=== PATIENT | male | born 1950 | race Caucasian/White ===

== ENCOUNTER 2017-08-27 08:38 | Emergency (ER) | payer MEDICARE ==
[2017-08-27 08:45] VITALS: RESP 18
--- NOTE | 2017-08-27 09:21 | ED ---
Eye Problem HPI - General Chief complaint: Eye Problems Stated complaint: VISUAL DISTURBANCE LEFT EYE Time Seen by Provider: 08/27/17 08:50 Source: patient Mode of arrival: ambulatory Limitations: no limitations - History of Present Illness Initial comments: This is a 66-year-old male who states he had the onset 3 days ago of loss of vision to his left eye. He states that he got out into the bright sunlight had some zigzag he flashes in his left eye and later he noted he had no vision BLACK. SINCE THEN HE HAS HAD SOME RETURN OF HIS VISION HIS LEFT PERIPHERAL AND A COUPLE SPOTTY AREAS. NO HEADACHE NO TRAUMA FEVERS CHILLS NAUSEA VOMITING SWEATS OR OTHER SYMPTOMS. HE STATES HE ABOUT 10 YEARS AGO DID HAVE A PIECE OF METAL THAT WAS REMOVED FROM INSIDE HE IS ALSO TOLD HE MAY HAVE SOME CATARACTS. NO HISTORY OF STROKES PATIENT DOES WEAR GLASSES NO OTHER MODIFYING FACTORS AT THIS TIME MD chief complaint: vision change - Related Data Home Medications Medication Instructions Recorded Confirmed Ibuprofen [Motrin Ib] 400 mg PO Q6H PRN 08/27/17 08/27/17 Previous Rx's Medication Instructions Recorded Lisinopril [Zestril] 10 mg PO DAILY #15 tab 08/27/17 Allergies Allergy/AdvReac Type Severity Reaction Status Date / Time No Known Allergies Allergy Verified 08/27/17 08:53 Review of Systems ROS Statement: Those systems with pertinent positive or pertinent negative responses have been documented in the HPI. ROS Other: All systems not noted in ROS Statement are negative. Past Medical History Past Medical History: Myocardial Infarction ([place]) History of Any Multi-Drug Resistant Organisms: None Reported Past Surgical History: Back Surgery Past Psychological History: No Psychological Hx Reported Smoking Status: Current every day smoker Past Alcohol Use History: None Reported Past Drug Use History: None Reported General Exam - General Exam Comments Initial Comments: This is a well-developed well-nourished awake alert oriented 3 male Limitations: no limitations General appearance: alert, in no apparent distress Head exam: Present: atraumatic, normocephalic, normal inspection Eye exam: Present: normal appearance, PERRL, EOMI, other (Examination grounds is limited. On confrontation the patient did schedule out on a pad deformity what he saw his left eye he does get some left lateral visual field vision remaining with some residual left upper outer quadrant and left lower medial quadrant vision retained.). Absent: scleral icterus, conjunctival injection, periorbital swelling Pupils: Present: normal accommodation ENT exam: Present: normal exam, mucous membranes moist Neck exam: Present: normal inspection. Absent: tenderness, meningismus, lymphadenopathy Respiratory exam: Present: normal lung sounds bilaterally. Absent: respiratory distress, wheezes, rales, rhonchi, stridor Cardiovascular Exam: Present: regular rate, normal rhythm, normal heart sounds. Absent: systolic murmur, diastolic murmur, rubs, gallop, clicks GI/Abdominal exam: Present: soft, normal bowel sounds. Absent: distended, tenderness, guarding, rebound, rigid Extremities exam: Present: normal inspection, full ROM, normal capillary refill. Absent: tenderness, pedal edema, joint swelling, calf tenderness Back exam: Present: normal inspection Neurological exam: Present: alert, oriented X3, CN II-XII intact Psychiatric exam: Present: normal affect, normal mood Skin exam: Present: warm, dry, intact, normal color. Absent: rash Course Vital Signs 08/27/17 08/27/17 08/27/17 08:41 08:45 09:36 Temperature 98.4 F Pulse Rate 97 Respiratory 18 Rate Blood Pressure 216/135 218/127 186/104 O2 Sat by Pulse 98 Oximetry 08/27/17 08/27/17 10:08 10:48 Temperature Pulse Rate 73 69 Respiratory 18 18 Rate Blood Pressure 173/101 182/98 O2 Sat by Pulse 98 97 Oximetry Medical Decision Making - Medical Decision Making I did reevaluate the patient several occasions he had no changes visual field defect. I did discuss the case with Dr. Gonzalez will be sent to Dr. Gonzalez's office after discharge from the emergency department. The presentation is consistent with a central retinal artery occlusion. - Lab Data Result diagrams: 08/27/17 09:30 08/27/17 09:30 Lab Results 08/27/17 08/27/17 08/27/17 Range/Units 09:30 09:30 09:30 WBC 7.8 (3.8-10.6) k/uL RBC 5.38 (4.30-5.90) m/uL Hgb 16.7 (13.0-17.5) gm/dL Hct 48.5 (39.0-53.0) % MCV 90.1 (80.0-100.0) fL MCH 31.0 (25.0-35.0) pg MCHC 34.5 (31.0-37.0) g/dL RDW 12.8 (11.5-15.5) % Plt Count 273 (150-450) k/uL Neutrophils % 56 % Lymphocytes % 32 % Monocytes % 7 % Eosinophils % 3 % Basophils % 1 % Neutrophils # 4.4 (1.3-7.7) k/uL Lymphocytes # 2.5 (1.0-4.8) k/uL Monocytes # 0.5 (0-1.0) k/uL Eosinophils # 0.2 (0-0.7) k/uL Basophils # 0.1 (0-0.2) k/uL PT 9.9 (9.0-12.0) sec INR 1.0 (<1.2) APTT 22.5 (22.0-30.0) sec Sodium 140 (137-145) mmol/L Potassium 4.5 (3.5-5.1) mmol/L Chloride 107 (98-107) mmol/L Carbon Dioxide 21 L (22-30) mmol/L Anion Gap 12 mmol/L BUN 18 (9-20) mg/dL Creatinine 1.21 (0.66-1.25) mg/dL Est GFR (CKD-EPI)AfAm 72 (>60 ml/min/1.73 sqM) Est GFR (CKD-EPI)NonAf 63 (>60 ml/min/1.73 sqM) Glucose 106 H (74-99) mg/dL Calcium 9.4 (8.4-10.2) mg/dL Magnesium 2.2 (1.6-2.3) mg/dL Total Bilirubin 0.6 (0.2-1.3) mg/dL AST 25 (17-59) U/L ALT 30 (21-72) U/L Alkaline Phosphatase 58 (38-126) U/L Total Creatine Kinase (55-170) U/L CK-MB (CK-2) (0.0-2.4) ng/mL CK-MB (CK-2) Rel Index Troponin I (0.000-0.034) ng/mL C-Reactive Protein (<10.0) mg/L Total Protein 7.3 (6.3-8.2) g/dL Albumin 4.4 (3.5-5.0) g/dL 08/27/17 08/27/17 Range/Units 09:30 09:30 WBC (3.8-10.6) k/uL RBC (4.30-5.90) m/uL Hgb (13.0-17.5) gm/dL Hct (39.0-53.0) % MCV (80.0-100.0) fL MCH (25.0-35.0) pg MCHC (31.0-37.0) g/dL RDW (11.5-15.5) % Plt Count (150-450) k/uL Neutrophils % % Lymphocytes % % Monocytes % % Eosinophils % % Basophils % % Neutrophils # (1.3-7.7) k/uL Lymphocytes # (1.0-4.8) k/uL Monocytes # (0-1.0) k/uL Eosinophils # (0-0.7) k/uL Basophils # (0-0.2) k/uL PT (9.0-12.0) sec INR (<1.2) APTT (22.0-30.0) sec Sodium (137-145) mmol/L Potassium (3.5-5.1) mmol/L Chloride (98-107) mmol/L Carbon Dioxide (22-30) mmol/L Anion Gap mmol/L BUN (9-20) mg/dL Creatinine (0.66-1.25) mg/dL Est GFR (CKD-EPI)AfAm (>60 ml/min/1.73 sqM) Est GFR (CKD-EPI)NonAf (>60 ml/min/1.73 sqM) Glucose (74-99) mg/dL Calcium (8.4-10.2) mg/dL Magnesium (1.6-2.3) mg/dL Total Bilirubin (0.2-1.3) mg/dL AST (17-59) U/L ALT (21-72) U/L Alkaline Phosphatase (38-126) U/L Total Creatine Kinase 128 (55-170) U/L CK-MB (CK-2) 1.3 (0.0-2.4) ng/mL CK-MB (CK-2) Rel Index 1.0 Troponin I 0.017 (0.000-0.034) ng/mL C-Reactive Protein <5.0 (<10.0) mg/L Total Protein (6.3-8.2) g/dL Albumin (3.5-5.0) g/dL - Radiology Data Radiology results: report reviewed (I did review the imaging and report no acute findings. Evidence of old changes), image reviewed Disposition Clinical Impression: Visual loss, Central retinal artery occlusion of left eye, Hypertension Disposition: HOME SELF-CARE Condition: Stable Instructions: Blurred Vision (ED) Additional Instructions: Follow-up with Dr. Gonzalez immediately after discharge from the hospital Prescriptions: Lisinopril [Zestril] 10 mg PO DAILY #15 tab Is patient prescribed a controlled substance at d/c from ED?: No Referrals: None,Stated [Primary Care Provider] - 1-2 days Jaspal Gonzalez MD [STAFF PHYSICIAN] - 1-2 days Rubi Elena MD [STAFF PHYSICIAN] - 1-2 days
[2017-08-27] MEDS ORDERED: ENALAPRILAT 1.25 MG/ML 1 ML VIAL IVP STA (09:25)
[2017-08-27] MEDS ORDERED: SODIUM CHLORIDE 0.9% 500 ML IV STA (09:25)
[2017-08-27 09:41] LABS: Basophils # (A) 0.1 k/uL (0-0.2); Basophils % (A) 1 %; Eosinophils # (A) 0.2 k/uL (0-0.7); Eosinophils % (A) 3 %; HCT 48.5 % (39.0-53.0); HGB 16.7 gm/dL (13.0-17.5); Lymphocytes # (A) 2.5 k/uL (1.0-4.8); Lymphocytes % (A) 32 %; MCHC 34.5 g/dL (31.0-37.0); MCV 90.1 fL (80.0-100.0); Mean Platelet Volume 6.6; Monocytes # (A) 0.5 k/uL (0-1.0); Monocytes % (A) 7 %; Neutrophils # (A) 4.4 k/uL (1.3-7.7); Neutrophils % (A) 56 %; Platelet Count 273 k/uL (150-450); RBC 5.38 m/uL (4.30-5.90); RDW 12.8 % (11.5-15.5); WBC 7.8 k/uL (3.8-10.6)
[2017-08-27 09:48] LABS: Albumin 4.4 g/dL (3.5-5.0); Calcium 9.4 mg/dL (8.4-10.2); Magnesium 2.2 mg/dL (1.6-2.3); Potassium 4.5 mmol/L (3.5-5.1); Total Bilirubin 0.6 mg/dL (0.2-1.3); Total Protein 7.3 g/dL (6.3-8.2)
[2017-08-27 09:55] LABS: Partial Thromboplastin Time 22.5 sec (22.0-30.0); Prothrombin Time 9.9 sec (9.0-12.0)
--- NOTE | 2017-08-27 10:07 | CT ---
EXAMINATION TYPE: CT brain wo con DATE OF EXAM: 08/27/2017 COMPARISON: NONE HISTORY: visual disturbance Lt eye CT DLP: 1210 mGycm Automated exposure control for dose reduction was used. Helical acquisition obtained through the [employer]. FINDINGS: Cerebral vascular calcifications are present. There is no hemorrhage or hydrocephalus. Periventricula r white matter shows patchy low attenuation, probable prior infarct present within the basal ganglia, internal capsule on the left and possibly basal ganglia on the right. Calvarium is intact. Paranasal sinuses and mastoid air cells as visualized are normal. Orbits show symmetric appearance. Left parie radhika lobe shows some focal volume loss, encephalomalacia. IMPRESSION: SUSPECT CHRONIC ISCHEMIC CHANGES, MRI MAY BE OF BENEFIT
[2017-08-27 10:29] LABS: Creatine Kinase MB 1.3 ng/mL (0.0-2.4); Troponin I 0.017 ng/mL (0.000-0.034)
[2017-08-27 12:11] VITALS: BP 172/94; PULSE 79; TEMP 98.6
== END 2017-08-27 12:10 | disposition home or self-care (01) ==
LOC: EC 08:38
DX: H34.12 Central retinal artery occlusion, left eye (principal); I10 Essential (primary) hypertension; F17.200 Nicotine dependence, unspecified, uncomplicated; Z98.890 Other specified postprocedural states
CPT/HCPCS: 36415; 70450; 80053; 82550; 82553; 83735; 84484; 85025; 85610; 85652; 85730; 86140; 96374; 99284

== ENCOUNTER → 2017-09-10 | Outpatient (CLI) | payer MEDICARE ==
[2017-09-10 10:11] LABS: ALT 32 U/L (21-72); AST 24 U/L (17-59); Cholesterol 226 mg/dL (<200); HDL Cholesterol 34 mg/dL (40-60); LDL Cholesterol,Calculated 160 mg/dL (0-99); Triglycerides 160 mg/dL (<150)
== END | disposition home or self-care (01) ==
LOC: LABWHC1 09:12
PROVIDERS: ATTEND Internal Medicine Cardiovascular Disease
DX: E78.2 Mixed hyperlipidemia (principal)
CPT/HCPCS: 36415; 80061; 84450; 84460

== ENCOUNTER 2017-09-14 06:32 | Day surgery (SDC) | payer MEDICARE ==
[2017-09-10 15:25] VITALS: BMI 26.2
[2017-09-14 07:00] VITALS: RESP 16; TEMP 98.1
[2017-09-14] MEDS ORDERED: SODIUM CHLORIDE 0.9% 500 ML IV ONE (07:05)
[2017-09-14] MEDS ORDERED: MIDAZOLAM 2 MG/2 ML VIAL ONE (07:17)
[2017-09-14] MEDS ORDERED: fentaNYL (PF) 50 MCG/ML 2 ML AMP ONE (07:17)
[2017-09-14] MEDS: BENZOCAINE SPRAY 1 CAN MUCOUS MEM ONE ×2 (07:27→07:29)
[2017-09-14] MEDS ORDERED: fentaNYL (PF) 50 MCG/ML 2 ML AMP IVP ONE (07:29)
[2017-09-14] MEDS ORDERED: MIDAZOLAM 2 MG/2 ML VIAL IVP ONE (07:29)
[2017-09-14] MEDS ORDERED: SODIUM CHLORIDE 0.9% 1,000 ML IV SCH (08:00)
--- NOTE | 2017-09-14 08:02 | ECHOT ---
TRANSESOPHAGEAL ECHOCARDIOGRAM INDICATION: TIA. PROCEDURE NOTE: After obtaining informed consent, transesophageal echocardiogram was performed in left lateral position using an Omni plane probe. Local and IV sedation were obtained by Xylocaine spray, 2 mg of Versed and 25 mcg of fentanyl. The patient tolerated the procedure well without any obvious immediate complications. FINDINGS: 1. There is no intracardiac thrombus within the left atrial appendage, left atrium, right atrium, right ventricular or left ventricle. 2. Left ventricle appears mildly enlarged shows hypokinesis involving inferior wall with moderate LV dysfunction with an ejection fraction of 40% to 45%. 3. Mild to moderate central mitral regurgitation noted. 4. Left atrium appears enlarged. 5. Right atrium and right ventricle are within normal limits. 6. Aorta shows mild to moderate atherosclerotic changes. 7. Aortic valve is a 3-leaflet valve. There is no evidence of aortic stenosis or regurgitation. 8. Interatrial septum: There is no evidence of [id number] shunt by color-flow Doppler or [id number] shunt by agitated saline contrast study. CONCLUSIONS: This transesophageal echo does not reveal intracardiac thrombus and no evidence of shunting across the interatrial septum. The patient has evidence of prior inferior wall myocardial infarction with left ventricular dysfunction. MMODL / IJN: [id number] /
[2017-09-14 09:31] VITALS: BP 150/89; PULSE 71
== END 2017-09-14 09:28 | disposition home or self-care (01) ==
LOC: CATHCVL 06:32
PROVIDERS: ATTEND Internal Medicine Cardiovascular Disease
DX: I74.9 Embolism and thrombosis of unspecified artery (principal); I69.398 Other sequelae of cerebral infarction; H54.62 Unqualified visual loss, left eye, normal vision right eye; I10 Essential (primary) hypertension; R94.31 Abnormal electrocardiogram [ECG] [EKG]; F17.210 Nicotine dependence, cigarettes, uncomplicated; Z79.82 Long term (current) use of aspirin; Z79.899 Other long term (current) drug therapy
CPT/HCPCS: 93312; 93320; 93325; J2250; J3010

== ENCOUNTER 2017-09-20 17:12 | Inpatient (IN) | payer MEDICARE ==
[2017-09-20] MEDS ORDERED: SODIUM CHLORIDE 0.9% 1,000 ML IV STA (17:19)
--- NOTE | 2017-09-20 17:23 | ED ---
Recheck HPI - General Chief Complaint: Recheck/Abnormal Lab/Rx Stated Complaint: HTN Time Seen by Provider: 09/20/17 17:19 Source: patient, EMS, RN notes reviewed Mode of arrival: EMS Limitations: no limitations - History of Present Illness Initial Comments: This is a 67-year-old male was brought in by EMS for sudden onset of left leg weakness. He states it happened about 45 minutes prior to arrival he had sudden onset of numbness to his left leg he could not move wood. He states he has again a little bit of movement but not much. He's had no headache fevers chills nausea vomiting sweats no blurry vision no other symptoms. No prior history of stroke. No palpitations no chest pain reported at this time. He was noted have an elevated blood pressure. He states that he was told he should be a medication but could not afford them. - Related Data Home Medications Medication Instructions Recorded Confirmed Ibuprofen [Motrin Ib] 400 mg PO Q6H PRN 08/27/17 09/20/17 Previous Rx's Medication Instructions Recorded Lisinopril [Zestril] 10 mg PO DAILY #15 tab 08/27/17 Allergies Allergy/AdvReac Type Severity Reaction Status Date / Time No Known Allergies Allergy Verified 09/20/17 17:16 Review of Systems ROS Statement: Those systems with pertinent positive or pertinent negative responses have been documented in the HPI. ROS Other: All systems not noted in ROS Statement are negative. Past Medical History Past Medical History: Hypertension, Myocardial Infarction ([place]) History of Any Multi-Drug Resistant Organisms: None Reported Past Surgical History: Back Surgery Past Psychological History: No Psychological Hx Reported Smoking Status: Current every day smoker Past Alcohol Use History: None Reported Past Drug Use History: None Reported General Exam - General Exam Comments Initial Comments: This is a well-developed well-nourished awake alert oriented times 3 male Limitations: no limitations General appearance: alert, in no apparent distress Head exam: Present: atraumatic, normocephalic, normal inspection Eye exam: Present: normal appearance, PERRL, EOMI. Absent: scleral icterus, conjunctival injection, periorbital swelling ENT exam: Present: normal exam, mucous membranes moist Neck exam: Present: normal inspection. Absent: tenderness, meningismus, lymphadenopathy Respiratory exam: Present: normal lung sounds bilaterally. Absent: respiratory distress, wheezes, rales, rhonchi, stridor Cardiovascular Exam: Present: regular rate, normal rhythm, normal heart sounds. Absent: systolic murmur, diastolic murmur, rubs, gallop, clicks GI/Abdominal exam: Present: soft, normal bowel sounds. Absent: distended, tenderness, guarding, rebound, rigid Extremities exam: Present: normal inspection, normal capillary refill. Absent: full ROM (Limited movements of left lower extremity to gravity to push pull), tenderness, pedal edema, joint swelling, calf tenderness Back exam: Present: normal inspection Neurological exam: Present: alert, oriented X3, CN II-XII intact, motor sensory deficit Psychiatric exam: Present: normal affect, normal mood Skin exam: Present: warm, dry, intact, normal color. Absent: rash Course Vital Signs 09/20/17 09/20/17 09/20/17 17:17 17:30 17:45 Temperature 99.1 F Pulse Rate 87 90 86 Respiratory 18 18 20 Rate Blood Pressure 190/107 180/91 171/99 O2 Sat by Pulse 97 98 99 Oximetry 09/20/17 09/20/17 09/20/17 18:00 18:15 19:38 Temperature Pulse Rate 82 80 77 Respiratory 18 20 18 Rate Blood Pressure 162/95 168/91 179/101 O2 Sat by Pulse 99 98 96 Oximetry - Reevaluation(s) Reevaluation #1: 09/20/17 21:35 Reevaluation patient he did have resolution of his left leg hemiplegia. Reevaluation #2: 09/20/17 21:36 EKG reading shows a normal sinus rhythm of 87 TN interval 166 QRS 106 daily since QTC 372/447 old inferior changes nonspecific anterolateral changes. Medical Decision Making - Medical Decision Making Reevaluation patient reveals resolution of his symptoms he is asymptomatic at this time patient was noted have elevated blood pressure. He will be started on medication in the emergency department I did discuss the case with the city call physician patient be admitted with neurology consultation. Of note a code stroke was called on this patient and the neuro interventional S did evaluate the patient. His NIH stroke scale was 0 at the time of admission. His initial stroke scale was 1. - Lab Data Result diagrams: 09/20/17 17:20 09/20/17 17:20 Lab Results 09/20/17 09/20/17 09/20/17 Range/Units 17:20 17:20 17:20 WBC 9.2 (3.8-10.6) k/uL RBC 5.25 (4.30-5.90) m/uL Hgb 16.1 (13.0-17.5) gm/dL Hct 46.9 (39.0-53.0) % MCV 89.3 (80.0-100.0) fL MCH 30.6 (25.0-35.0) pg MCHC 34.3 (31.0-37.0) g/dL RDW 12.2 (11.5-15.5) % Plt Count 287 (150-450) k/uL Neutrophils % 57 % Lymphocytes % 34 % Monocytes % 4 % Eosinophils % 3 % Basophils % 1 % Neutrophils # 5.2 (1.3-7.7) k/uL Lymphocytes # 3.1 (1.0-4.8) k/uL Monocytes # 0.4 (0-1.0) k/uL Eosinophils # 0.3 (0-0.7) k/uL Basophils # 0.1 (0-0.2) k/uL PT (9.0-12.0) sec INR (<1.2) APTT (22.0-30.0) sec Sodium 138 (137-145) mmol/L Potassium 4.5 (3.5-5.1) mmol/L Chloride 109 H (98-107) mmol/L Carbon Dioxide 20 L (22-30) mmol/L Anion Gap 9 mmol/L BUN 20 (9-20) mg/dL Creatinine 1.20 (0.66-1.25) mg/dL Est GFR (CKD-EPI)AfAm 73 (>60 ml/min/1.73 sqM) Est GFR (CKD-EPI)NonAf 63 (>60 ml/min/1.73 sqM) Glucose 166 H (74-99) mg/dL POC Glucose (mg/dL) (75-99) mg/dL POC Glu Personal Computer Specialist ID Calcium 9.1 (8.4-10.2) mg/dL Magnesium 2.1 (1.6-2.3) mg/dL Total Bilirubin 0.4 (0.2-1.3) mg/dL AST 26 (17-59) U/L ALT 27 (21-72) U/L Alkaline Phosphatase 68 (38-126) U/L Total Creatine Kinase (55-170) U/L CK-MB (CK-2) (0.0-2.4) ng/mL CK-MB (CK-2) Rel Index Troponin I (0.000-0.034) ng/mL Total Protein 7.2 (6.3-8.2) g/dL Albumin 4.3 (3.5-5.0) g/dL 09/20/17 09/20/17 09/20/17 Range/Units 17:20 17:20 17:22 WBC (3.8-10.6) k/uL RBC (4.30-5.90) m/uL Hgb (13.0-17.5) gm/dL Hct (39.0-53.0) % MCV (80.0-100.0) fL MCH (25.0-35.0) pg MCHC (31.0-37.0) g/dL RDW (11.5-15.5) % Plt Count (150-450) k/uL Neutrophils % % Lymphocytes % % Monocytes % % Eosinophils % % Basophils % % Neutrophils # (1.3-7.7) k/uL Lymphocytes # (1.0-4.8) k/uL Monocytes # (0-1.0) k/uL Eosinophils # (0-0.7) k/uL Basophils # (0-0.2) k/uL PT 10.0 (9.0-12.0) sec INR 1.0 (<1.2) APTT 23.2 (22.0-30.0) sec Sodium (137-145) mmol/L Potassium (3.5-5.1) mmol/L Chloride (98-107) mmol/L Carbon Dioxide (22-30) mmol/L Anion Gap mmol/L BUN (9-20) mg/dL Creatinine (0.66-1.25) mg/dL Est GFR (CKD-EPI)AfAm (>60 ml/min/1.73 sqM) Est GFR (CKD-EPI)NonAf (>60 ml/min/1.73 sqM) Glucose (74-99) mg/dL POC Glucose (mg/dL) 173 H (75-99) mg/dL POC Glu Personal Computer Specialist ID Car [employer]oney Calcium (8.4-10.2) mg/dL Magnesium (1.6-2.3) mg/dL Total Bilirubin (0.2-1.3) mg/dL AST (17-59) U/L ALT (21-72) U/L Alkaline Phosphatase (38-126) U/L Total Creatine Kinase 168 (55-170) U/L CK-MB (CK-2) 1.9 (0.0-2.4) ng/mL CK-MB (CK-2) Rel Index 1.1 Troponin I 0.018 (0.000-0.034) ng/mL Total Protein (6.3-8.2) g/dL Albumin (3.5-5.0) g/dL - EKG Data -: EKG Interpreted by Me (EKG shows normal sinus rhythm of 87 ) - Radiology Data Radiology results: report reviewed (I did review the imaging and report computed tomography scan shows no acute findings. He does have evidence of a left lung mass on x-ray.), image reviewed Critical Care Time Critical Care Time: Yes Critical Care Time: 37 minutes of critical care time which includes monitoring initially EMS run and discussed with paramedics history physical labs x-rays. Multiple reevaluation the patient. Discussion with the beta physician admission orders and documentation the above. This also did include discussion with the radiologist. Disposition Clinical Impression: TIA (transient ischemic attack), Lung mass Disposition: ADMITTED IP TO THIS [facility] Condition: Stable Referrals: None,Stated [Primary Care Provider] - 1-2 days
[2017-09-20 17:25] LABS: Glucose,Whole Blood 173 mg/dL (75-99)
[2017-09-20 17:37] LABS: Basophils # (A) 0.1 k/uL (0-0.2); Basophils % (A) 1 %; Eosinophils # (A) 0.3 k/uL (0-0.7); Eosinophils % (A) 3 %; HCT 46.9 % (39.0-53.0); HGB 16.1 gm/dL (13.0-17.5); Lymphocytes # (A) 3.1 k/uL (1.0-4.8); Lymphocytes % (A) 34 %; MCH 30.6 pg (25.0-35.0); MCHC 34.3 g/dL (31.0-37.0); MCV 89.3 fL (80.0-100.0); Mean Platelet Volume 6.3; Monocytes # (A) 0.4 k/uL (0-1.0); Monocytes % (A) 4 %; Neutrophils # (A) 5.2 k/uL (1.3-7.7); Neutrophils % (A) 57 %; Platelet Count 287 k/uL (150-450); RBC 5.25 m/uL (4.30-5.90); RDW 12.2 % (11.5-15.5); WBC 9.2 k/uL (3.8-10.6)
[2017-09-20 17:45] LABS: Albumin 4.3 g/dL (3.5-5.0); Calcium 9.1 mg/dL (8.4-10.2); Potassium 4.5 mmol/L (3.5-5.1); Total Bilirubin 0.4 mg/dL (0.2-1.3); Total Protein 7.2 g/dL (6.3-8.2)
[2017-09-20] MEDS ORDERED: ASPIRIN 325 MG TAB PO STA (17:47)
[2017-09-20] MEDS ORDERED: ATORVASTATIN 80 MG TAB PO STA (17:48)
--- NOTE | 2017-09-20 17:48 | CT ---
EXAMINATION: CT brain wo con for TPA DATE AND TIME: 09/20/2017 5:37 PM ORDERING PROVIDER: Kashif Oliveira MD CLINICAL INDICATION: Neuro Deficits hypertension and left lower leg weakness. TECHNIQUE: Standard departmental protocol. COMPARISON: 08/27/2017 DESCRIPTION: The calvarium is intact. There is no intracranial hemorrhage. There is no mass or mass e ffect. There is no definite new attenuation defect. Remainder of the intra-axial and extra-axial comp artment examination is unremarkable. The paranasal sinuses, middle ear cavities, and mastoid sinus ai r cells are clear. The orbits are intact. IMPRESSION: NO ACUTE PROCESS.
[2017-09-20 17:56] LABS: Partial Thromboplastin Time 23.2 sec (22.0-30.0)
[2017-09-20 18:10] LABS: Creatine Kinase MB 1.9 ng/mL (0.0-2.4); Troponin I 0.018 ng/mL (0.000-0.034)
--- NOTE | 2017-09-20 18:34 | CT ---
EXAMINATION TYPE: CT angio head neck with contrast and with 3-D reconstruction renderings. DATE OF EXAM: 09/20/2017 HISTORY: Neurological deficits; hypertension with left lower leg weakness COMPARISON: Same day CT brain without contrast. CT DLP: 357.9 mGycm. Automated Exposure Control for Dose Reduction was Utilized. TECHNIQUE: CTA scan of the neck is performed; patient injected with 35 mL of Isovue 370, axial image s are obtained, coronal and sagittal reformatted images are reviewed. Three-D reconstructed images ar e created on an independent workstation and reviewed. FINDINGS: The bilateral carotid arteries are without hemodynamically significant stenoses throughout their extent from the aortic arch to their terminus. Similarly, the bilateral vertebral arteries are without hemodynamically significant stenoses througho ut their extent from the thoracic inlet to their terminus. No incidental neck soft tissue skeletal findings, and the visualized lung apices are unremarkable. Intracranial arterial anatomy: The anterior circulation and the posterior circulation are patent bila terally. There are no filling defects. No hemodynamically significant stenosis, and no aneurysm. Intracranial venous structures are unremarkable. Intracranial intra-axial and extra-axial compartments are negative for acute findings. IMPRESSION: No significant abnormality is seen.
[2017-09-20 19:40] VITALS: RESP 18
--- NOTE | 2017-09-20 20:17 | XR ---
EXAMINATION: XR chest 2V DATE AND TIME: 09/20/2017 7:27 PM ORDERING PROVIDER: Kashif Oliveira MD CLINICAL INDICATION: altered mental status TECHNIQUE: PA and lateral COMPARISON: None. DESCRIPTION: 2.5 cm spiculated bronchogenic mass is seen within the left upper lobe. No other definite lung findin gs. The pleural spaces are negative. The cardiac silhouette is not enlarged. The mediastinal and pleural silhouettes are unremarkable. The skeletal structures are intact without focal findings. The soft tissues are unremarkable. IMPRESSION: LEFT UPPER LOBE SPICULATED BRONCHOGENIC MASS, HIGHLY SUSPICIOUS FOR BRONCHOGENIC CARCINOMA.
[2017-09-20] MEDS ORDERED: LISINOPRIL 10 MG TAB PO STA (21:29)
--- NOTE | 2017-09-20 21:45 | ED ---
Medical Decision Making - Lab Data Result diagrams: 09/20/17 17:20 09/20/17 17:20 Lab Results 09/20/17 09/20/17 09/20/17 Range/Units 17:20 17:20 17:20 WBC 9.2 (3.8-10.6) k/uL RBC 5.25 (4.30-5.90) m/uL Hgb 16.1 (13.0-17.5) gm/dL Hct 46.9 (39.0-53.0) % MCV 89.3 (80.0-100.0) fL MCH 30.6 (25.0-35.0) pg MCHC 34.3 (31.0-37.0) g/dL RDW 12.2 (11.5-15.5) % Plt Count 287 (150-450) k/uL Neutrophils % 57 % Lymphocytes % 34 % Monocytes % 4 % Eosinophils % 3 % Basophils % 1 % Neutrophils # 5.2 (1.3-7.7) k/uL Lymphocytes # 3.1 (1.0-4.8) k/uL Monocytes # 0.4 (0-1.0) k/uL Eosinophils # 0.3 (0-0.7) k/uL Basophils # 0.1 (0-0.2) k/uL PT (9.0-12.0) sec INR (<1.2) APTT (22.0-30.0) sec Sodium 138 (137-145) mmol/L Potassium 4.5 (3.5-5.1) mmol/L Chloride 109 H (98-107) mmol/L Carbon Dioxide 20 L (22-30) mmol/L Anion Gap 9 mmol/L BUN 20 (9-20) mg/dL Creatinine 1.20 (0.66-1.25) mg/dL Est GFR (CKD-EPI)AfAm 73 (>60 ml/min/1.73 sqM) Est GFR (CKD-EPI)NonAf 63 (>60 ml/min/1.73 sqM) Glucose 166 H (74-99) mg/dL POC Glucose (mg/dL) (75-99) mg/dL POC Glu Agricultural Equipment Salesperson ID Calcium 9.1 (8.4-10.2) mg/dL Magnesium 2.1 (1.6-2.3) mg/dL Total Bilirubin 0.4 (0.2-1.3) mg/dL AST 26 (17-59) U/L ALT 27 (21-72) U/L Alkaline Phosphatase 68 (38-126) U/L Total Creatine Kinase (55-170) U/L CK-MB (CK-2) (0.0-2.4) ng/mL CK-MB (CK-2) Rel Index Troponin I (0.000-0.034) ng/mL Total Protein 7.2 (6.3-8.2) g/dL Albumin 4.3 (3.5-5.0) g/dL 09/20/17 09/20/17 09/20/17 Range/Units 17:20 17:20 17:22 WBC (3.8-10.6) k/uL RBC (4.30-5.90) m/uL Hgb (13.0-17.5) gm/dL Hct (39.0-53.0) % MCV (80.0-100.0) fL MCH (25.0-35.0) pg MCHC (31.0-37.0) g/dL RDW (11.5-15.5) % Plt Count (150-450) k/uL Neutrophils % % Lymphocytes % % Monocytes % % Eosinophils % % Basophils % % Neutrophils # (1.3-7.7) k/uL Lymphocytes # (1.0-4.8) k/uL Monocytes # (0-1.0) k/uL Eosinophils # (0-0.7) k/uL Basophils # (0-0.2) k/uL PT 10.0 (9.0-12.0) sec INR 1.0 (<1.2) APTT 23.2 (22.0-30.0) sec Sodium (137-145) mmol/L Potassium (3.5-5.1) mmol/L Chloride (98-107) mmol/L Carbon Dioxide (22-30) mmol/L Anion Gap mmol/L BUN (9-20) mg/dL Creatinine (0.66-1.25) mg/dL Est GFR (CKD-EPI)AfAm (>60 ml/min/1.73 sqM) Est GFR (CKD-EPI)NonAf (>60 ml/min/1.73 sqM) Glucose (74-99) mg/dL POC Glucose (mg/dL) 173 H (75-99) mg/dL POC Glu Agricultural Equipment Salesperson ID [employer] Calcium (8.4-10.2) mg/dL Magnesium (1.6-2.3) mg/dL Total Bilirubin (0.2-1.3) mg/dL AST (17-59) U/L ALT (21-72) U/L Alkaline Phosphatase (38-126) U/L Total Creatine Kinase 168 (55-170) U/L CK-MB (CK-2) 1.9 (0.0-2.4) ng/mL CK-MB (CK-2) Rel Index 1.1 Troponin I 0.018 (0.000-0.034) ng/mL Total Protein (6.3-8.2) g/dL Albumin (3.5-5.0) g/dL Disposition Clinical Impression: TIA (transient ischemic attack), Lung mass, Hypertension Disposition: ADMITTED IP TO THIS HOSP Condition: Stable Referrals: None,Stated [Primary Care Provider] - 1-2 days
[2017-09-20] MEDS: SODIUM CHLORIDE 0.9% 1,000 ML IV SCH (22:01)
[2017-09-20 22:23] VITALS: BMI 26.2
--- NOTE | 2017-09-21 02:14 | P.HPIM ---
History of Present Illness H&P Date: 09/20/17 Chief Complaint: left leg weakness 67 year old male with past medical history of hypertension and CAD. Patient presented to the hospital due to sudden onset left leg hemiplegia while watching TV. Patient reports that 3 weeks ago he also had an attack where his left eye vision has became blurry. He was evaluated as an outpatient by ophthalmology who suggested that this could be due to stroke however patient did not follow-up with medical doctor he does not have a PCP and he was not started on aspirin or statin. This time suddenly at 6 PM he felt weakness and numbness in his left lower leg and he was trying to get up, he was concerned regarding stroke and called 911 symptoms lasted for around an hour or an hour and a half point time he was in the ED he felt that symptoms are resolving currently he reports complete resolution of his symptoms. This has never happened before except for the eye symptoms mentioned above. In the ED code stroke was called as symptoms was therefore 45 minutes. His initial presentation showed NIH of 1 and then became [address] of the head and CT angiogram of the head and neck was unremarkable. Incidental finding of left lung nodule 2.7 cm was found. Otherwise patient currently denying any symptoms of weakness or numbness or tingling or headache he denies any nausea vomiting fevers or chills he denies any trauma. He denies any abdominal pain changes in his urinary or bowel habits. Patient denies any GI bleeding. Denies any trouble breathing or chest pain. Patient lives alone. Review of Systems Pertinent positives as noted in HPI. 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 Last Myocardial Infarction Date:: 1998 History of Any Multi-Drug Resistant Organisms: None Reported Past Surgical History: Back Surgery Past Psychological History: No Psychological Hx Reported Smoking Status: Current every day smoker Past Alcohol Use History: None Reported Past Drug Use History: None Reported - Past Family History Mother Family Medical History: Myocardial Infarction ([place]) Father Additional Family Medical History / Comment(s): alcoholism Medications and Allergies Home Medications Medication Instructions Recorded Confirmed Type Ibuprofen [Motrin Ib] 400 mg PO Q6H PRN 08/27/17 09/20/17 History Lisinopril [Zestril] 10 mg PO DAILY #15 tab 08/27/17 09/20/17 Rx Allergies Allergy/AdvReac Type Severity Reaction Status Date / Time No Known Allergies Allergy Verified 09/20/17 17:16 Physical Exam Vitals: Vital Signs Temp Pulse Pulse Resp BP BP Pulse Ox 09/20/17 22:02 99 F 66 18 182/105 97 09/20/17 21:53 97.9 F 80 18 142/58 96 09/20/17 21:39 72 18 168/101 97 09/20/17 19:38 77 18 179/101 96 09/20/17 18:15 80 20 168/91 98 09/20/17 18:00 82 18 162/95 99 09/20/17 17:45 86 20 171/99 99 09/20/17 17:30 90 18 180/91 98 09/20/17 17:17 99.1 F 87 18 190/107 97 Intake and Output 09/20/17 09/20/17 09/20/17 06:59 14:59 22:59 Intake Total 480 Balance 480 Intake: Oral 480 Other: # Voids 2 Weight 80.4 kg Constitutional: No acute distress, conversant, pleasant Eyes: Anicteric sclerae, moist conjunctiva, no lid-lag Pupils equal round reactive to light ENMT: NC/AT Oropharynx clear, no erythema, or exudates Neck: Supple, FROM, no masses, or JVD No carotid bruits No thyromegaly Lungs: Clear to auscultation Clear to percussion Normal respiratory effort, no accessory muscle use Cardiovascular: Heart regular in rate and rhythm, No murmurs, gallops, or rubs No peripheral edema Abdominal: Soft Nontender, no guarding, rebound or rigidity Abdomen moving with respiration Normoactive bowel sounds No hepatomegaly, No splenomegaly No palpable mass No abdominal wall hernia noted Skin: Normal temperature, tone, texture, turgor No induration No subcutaneous nodules No rash, lesions No ulcers Extremities: No digital cyanosis No clubbing Pedal pulses intact and symmetrical Radial pulses intact and symmetrical No calf tenderness Psychiatric: Alert and oriented to person, place and time Appropriate affect fair judgment Neuro Muscles Strength 5/5 in all 4 extremities Sensation to light touch grossly present throughout Cranial nerves II-XII grossly intact No focal sensory deficits Finger-nose exam is intact, [id number] exam is intact, Lymphatics: no palpable cervical or supraclavicular , or inguinal lymph nodes Results CBC & Chem 7: 09/20/17 17:20 09/20/17 17:20 Labs: Abnormal Lab Results - Last 24 Hours (Table) 09/20/17 09/20/17 Range/Units 17:20 17:22 Chloride 109 H (98-107) mmol/L Carbon Dioxide 20 L (22-30) mmol/L Glucose 166 H (74-99) mg/dL POC Glucose (mg/dL) 173 H (75-99) mg/dL Thrombosis Risk Factor Assmnt - Choose All That Apply Each Risk Factor Represents 2 Points: Age 61-74 years Thrombosis Risk Factor Assessment Total Risk Factor Score: 2 Thrombosis Risk Factor Assessment Level: Low Risk Assessment and Plan Assessment: 67-year-old male with history of CAD and hypertension. Admitted as an inpatient with anticipated length stable more than 48 hours for TIA. Patient presented with left hemiplegia that lasted for hours and a half and then resolved on its own. He reports symptoms of revision of his left eye started 3 weeks ago and persisted until now he was told by his grain commodity manager that this is suspicious for stroke. He was not started on any medications due to poor medical compliance and patient not following up with PCP. Plan: TIA Patient presented with left leg just has since resolved Started on aspirin and statin Check 2-D echocardiogram of the heart CT angiogram of the head and neck showed no significant carotid stenosis Check TSH, B12 Neurology consult Fall precautions Neurochecks PT/OT' Hypertension accelerated Currently improving Continue with lisinopril History of CAD Continue with aspirin and statin DVT prophylaxis on heparin subcu 3 times a day Incidental finding of left lung mass Pulmonary evaluation Surrogate decision-maker: Patient's son Aman CODE STATUS: Full code Discussed with: Patient, ER, RN Anticipated discharge: 48-[address]: Home A total of 60 minutes was spent on the care of this complex patient more than 50 % of the time was spent in counseling and care coordination.
[2017-09-21] MEDS: INSULIN ASPART 100 UNIT/ML 1 ML 10 ML VIAL SQ SCH ×3 (05:41→17:38)
[2017-09-21 06:25] LABS: Basophils # (A) 0.1 k/uL (0-0.2); Basophils % (A) 1 %; Eosinophils # (A) 0.2 k/uL (0-0.7); Eosinophils % (A) 2 %; HCT 47.5 % (39.0-53.0); HGB 15.8 gm/dL (13.0-17.5); Lymphocytes # (A) 2.7 k/uL (1.0-4.8); Lymphocytes % (A) 31 %; MCH 30.5 pg (25.0-35.0); MCHC 33.4 g/dL (31.0-37.0); MCV 91.5 fL (80.0-100.0); Mean Platelet Volume 6.2; Monocytes # (A) 0.6 k/uL (0-1.0); Monocytes % (A) 7 %; Neutrophils % (A) 58 %; Platelet Count 273 k/uL (150-450); RBC 5.18 m/uL (4.30-5.90); RDW 12.4 % (11.5-15.5); WBC 8.7 k/uL (3.8-10.6)
[2017-09-21 06:48] LABS: Calcium 9.5 mg/dL (8.4-10.2); Potassium 4.9 mmol/L (3.5-5.1); Total Bilirubin 0.6 mg/dL (0.2-1.3); Total Protein 6.7 g/dL (6.3-8.2)
[2017-09-21] MEDS ORDERED: LISINOPRIL 10 MG TAB PO SCH (09:00)
[2017-09-21] MEDS: HEPARIN SODIUM,PORCINE 5,000 UNIT/ML 1 ML VIAL SQ SCH ×3 (09:31→21:30)
[2017-09-21] MEDS: NICOTINE 14MG/24HR PATCH TRANSDERM SCH (09:31)
[2017-09-21] MEDS: ASPIRIN 325 MG TAB PO SCH (09:32)
[2017-09-21] MEDS: LISINOPRIL 10 MG TAB PO SCH (09:32)
[2017-09-21] MEDS: CLOPIDOGREL 75 MG TAB PO SCH (09:32)
[2017-09-21 12:20] LABS: Glucose,Whole Blood 99 mg/dL (75-99)
[2017-09-21] MEDS ORDERED: SODIUM CHLORIDE 0.9% 1,000 ML IV SCH (12:45)
--- NOTE | 2017-09-21 13:16 | P.CNPUL ---
History of Present Illness Consult date: 09/21/17 Reason for consult: abnormal CXR/CT Chief complaint: Pulmonary nodule/mass History of present illness: Pulmonary consult dated 09/21/2017 This is a 67-year-old male brought in by EMS for sudden onset of left leg weakness. Apparently developed about 45 minutes prior to his arrival in the emergency department. It was sudden in onset. He had numbness and weakness of left leg. Apparently when he was in the emergency room, it was a bit improved but not back to normal. He denied any headache fever chills nausea vomiting sweats no blurry vision or other complaints. No speech difficulty. No prior history of stroke. No chest pain or chest discomfort. No respiratory complaints. No palpitations. We were asked to see him because in the process of evaluating him, he had a chest x-ray which revealed a mass in the left upper lobe. A CT of the chest again revealed a 2.7 cm mass in the left upper lobe with some thoracic adenopathy and some satellite lesions. This was concerning for bronchogenic carcinoma. The patient is a smoker. I told him that I would likely work him up as an outpatient given the fact that he is in the hospital for a different reason. His past medical history is positive for hypertension and myocardial infarction. He's had previous back surgery. He is a current every day smoker and continues to smoke. Likely, once I see him in the office we will do a 6 minute walk distance, a complete pulmonary function test, and likely as for a PET scan to evaluate his abnormalities in the chest area. At that point, some sort of biopsy will need to be done. Review of Systems A 12 point review of system is positive for his left leg findings of weakness and numbness. He denies any pulmonary complaints. Denies any chest complaints per se. States his appetite is good. No unusual weight loss. 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 Last Myocardial Infarction Date:: 1998 History of Any Multi-Drug Resistant Organisms: None Reported Past Surgical History: Back Surgery Past Psychological History: No Psychological Hx Reported Smoking Status: Current every day smoker Past Alcohol Use History: None Reported Past Drug Use History: None Reported - Past Family History Mother Family Medical History: Myocardial Infarction ([place]) Father Additional Family Medical History / Comment(s): alcoholism Medications and Allergies Home Medications Medication Instructions Recorded Confirmed Type Ibuprofen [Motrin Ib] 400 mg PO Q6H PRN 08/27/17 09/20/17 History Lisinopril [Zestril] 10 mg PO DAILY #15 tab 08/27/17 09/20/17 Rx Allergies Allergy/AdvReac Type Severity Reaction Status Date / Time No Known Allergies Allergy Verified 09/20/17 17:16 Physical Exam Osteopathic Statement: *. No significant issues noted on an osteopathic structural exam other than those noted in the History and Physical/Consult. Vitals: Vital Signs Temp Pulse Pulse Resp BP BP Pulse Ox 09/21/17 12:00 81 174/105 95 09/21/17 08:00 96.9 F L 80 193/92 93 L 09/21/17 04:00 75 16 140/70 97 09/21/17 00:00 98 F 78 16 152/70 98 09/20/17 22:02 99 F 66 18 182/105 97 09/20/17 21:53 97.9 F 80 18 142/58 96 09/20/17 21:39 72 18 168/101 97 09/20/17 19:38 77 18 179/101 96 09/20/17 18:15 80 20 168/91 98 09/20/17 18:00 82 18 162/95 99 09/20/17 17:45 86 20 171/99 99 09/20/17 17:30 90 18 180/91 98 09/20/17 17:17 99.1 F 87 18 190/107 97 Intake and Output 09/20/17 09/21/17 09/21/17 22:59 06:59 14:59 Intake Total 480 480 480 Balance 480 480 480 Intake: Oral 480 480 480 Other: Voiding Method Toilet # Voids 2 2 1 Weight 80.4 kg 80.4 kg No acute distress, oriented 3. HEENT examination is grossly unremarkable. Mucous membranes are moist. No oral lesions. Neck supple. Full range of motion. No adenopathy thyromegaly or neck vein distention. Cardiovascular examination reveals regular rhythm rate. S1-S2 normal. No S3 or S4. No discernible murmur noted. Lungs reveal clear breath sounds. Her sounds are equal bilaterally. No adventitious lung sounds including wheezes rhonchi or crackles. Abdomen soft bowel sounds are heard. No masses or tenderness. Extremities are intact. No cyanosis clubbing or edema. Skin is without rash or lesion. Neurologic examination is brief but nonfocal. Results - Laboratory Findings CBC and BMP: 09/21/17 05:52 09/21/17 05:52 PT/INR, D-dimer PT 10.0 sec (9.0-12.0) 09/20/17 17:20 INR 1.0 (<1.2) 09/20/17 17:20 Abnormal lab findings: Abnormal Labs 09/20/17 09/20/17 09/21/17 17:20 17:22 05:52 Chloride 109 H Carbon Dioxide 20 L Creatinine 1.37 H Glucose 166 H POC Glucose (mg/dL) 173 H LDL Cholesterol, Calc 137 H HDL Cholesterol 35 L - Diagnostic Findings Chest x-ray: report reviewed, image reviewed CT scan - chest: report reviewed, image reviewed (Chest x-ray, labs and medications are all reviewed.) Assessment and Plan Assessment: Assessment 2.7 cm mass in the left upper lobe, with associated AP window adenopathy, rule out bronchogenic carcinoma Possible TIA/CVA History of hypertension History of myocardial infarction Probable COPD Ongoing tobacco use with nicotine addiction Plan: Plan dated 09/21/2017 The patient will need outpatient evaluation of this left upper lobe mass. It likely represents a bronchogenic carcinoma given the findings in the chest. He will need a 6 minute walk distance a full complete pulmonary function test and will likely be set up for an outpatient PET scan. At that point, he'll need a biopsy. We will likely plan a navigational bronchoscopy. Additional recommendations and suggestions are forthcoming. Prognosis is guarded. The patient is counseled about the importance of smoking cessation. Time with Patient: Greater than 30
[2017-09-21 13:46] LABS: Hemoglobin A1C 5.8 % (4.0-6.0)
--- NOTE | 2017-09-21 14:02 | P.CONS ---
History of Present Illness - Reason for Consult Consult date: 09/21/17 Requesting physician: Kashif Oliveira - Chief Complaint Unialteral Weakness/TIA - History of Present Illness Neurology is consulting on a 67-year-old male possible TIA. He presented to the ED with left-sided hemiplegia that lasted several hours then resolved. He states he also had left ocular symptoms that started approximately 3 weeks ago and persisted until presentation at the ED. He was told by marine machinist prior to ED that this is suspicious for possible ocular stroke. He does have a previous history of poor medication/medical compliance, poor compliance with treatment plan and follow up management. As a result patient was not started on medications previously. At time of contact, patient was ambulating in the room, alert and oriented 3 in no acute distress. 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 Last Myocardial Infarction Date:: 1998 History of Any Multi-Drug Resistant Organisms: None Reported Past Surgical History: Back Surgery Past Psychological History: No Psychological Hx Reported Smoking Status: Current every day smoker Past Alcohol Use History: None Reported Past Drug Use History: None Reported - Past Family History Mother Family Medical History: Myocardial Infarction ([place]) Father Additional Family Medical History / Comment(s): alcoholism Medications and Allergies Home Medications Medication Instructions Recorded Confirmed Type Ibuprofen [Motrin Ib] 400 mg PO Q6H PRN 08/27/17 09/20/17 History Lisinopril [Zestril] 10 mg PO DAILY #15 tab 08/27/17 09/20/17 Rx Allergies Allergy/AdvReac Type Severity Reaction Status Date / Time No Known Allergies Allergy Verified 09/20/17 17:16 Physical Exam Vitals: Vital Signs Temp Pulse Pulse Resp BP BP Pulse Ox 09/21/17 12:00 81 174/105 95 09/21/17 08:00 96.9 F L 80 193/92 93 L 09/21/17 04:00 75 16 140/70 97 09/21/17 00:00 98 F 78 16 152/70 98 09/20/17 22:02 99 F 66 18 182/105 97 09/20/17 21:53 97.9 F 80 18 142/58 96 09/20/17 21:39 72 18 168/101 97 09/20/17 19:38 77 18 179/101 96 09/20/17 18:15 80 20 168/91 98 09/20/17 18:00 82 18 162/95 99 09/20/17 17:45 86 20 171/99 99 09/20/17 17:30 90 18 180/91 98 09/20/17 17:17 99.1 F 87 18 190/107 97 Intake and Output 09/20/17 09/21/17 09/21/17 22:59 06:59 14:59 Intake Total 480 480 480 Balance 480 480 480 Intake: Oral 480 480 480 Other: Voiding Method Toilet # Voids 2 2 1 Weight 80.4 kg 80.4 kg Gen. appearance: Alert, in no apparent distress Head: Atraumatic normocephalic, normal inspection Eyes: Well appearance, PERRL, EOMI. absent: Scleral icterus, conjunctival injection, nystagmus, periorbital swelling. Ear nose and throat: Normal exam, mucous membranes moist Neck: Normal inspection. Absent tenderness, lymphadenopathy Respiratory: No increased work of breathing. Cardiovascular: Regular rate, normal rhythm, normal heart sounds. Absent systolic murmur, diastolic murmur, rubs, gallops, clicks GIabdominal: Normal bowel sounds, non distended, no tenderness, no guarding, no rebound, no rigidity. Extremities: All range of motion, normal capillary refill, no tenderness, pedal edema, joint swelling, calf tenderness Neurological: Alert and oriented 3, cranial nerves II through XII intact, no unilateral lateralizing weakness, no seizure activity noted on physical exam, no pronator drift and no nystagmus. Psychological: Mood and affect appropriate setting Results CBC & Chem 7: 09/21/17 05:52 09/21/17 05:52 Labs: Abnormal Lab Results - Last 24 Hours (Table) 09/20/17 09/20/17 09/21/17 Range/Units 17:20 17:22 05:52 Chloride 109 H (98-107) mmol/L Carbon Dioxide 20 L (22-30) mmol/L Creatinine 1.37 H (0.66-1.25) mg/dL Glucose 166 H (74-99) mg/dL POC Glucose (mg/dL) 173 H (75-99) mg/dL LDL Cholesterol, Calc 137 H (0-99) mg/dL HDL Cholesterol 35 L (40-60) mg/dL Noted previously Assessment and Plan (1) TIA (transient ischemic attack) Current Visit: Yes Status: Acute Code(s): G45.9 - TRANSIENT CEREBRAL ISCHEMIC ATTACK, UNSPECIFIED SNOMED Code(s): 345243844 (2) Lung mass Current Visit: Yes Status: Acute Code(s): R91.8 - OTHER NONSPECIFIC ABNORMAL FINDING OF LUNG FIELD SNOMED Code(s): 781080032 (3) Hyperlipidemia Current Visit: Yes Status: Acute Code(s): E78.5 - HYPERLIPIDEMIA, UNSPECIFIED SNOMED Code(s): 33309463 (4) Visual loss Current Visit: No Status: Acute Code(s): H54.7 - UNSPECIFIED VISUAL LOSS SNOMED Code(s): 997857097 (5) Left leg weakness Current Visit: Yes Status: Acute Code(s): R29.898 - OT SYMPTOMS AND SIGNS INVOLVING THE MUSCULOSKELETAL SYSTEM SNOMED Code(s): 894404793 Plan: 1. TIA The patient presented with unilateral lateralizing weakness on the left lower extremity/left side. Patient's symptoms have resolved and are consistent with pTIA. Patient's CT angiogram as well as CT brain were unremarkable for acute process to account for symptoms. Patient is currently taking 35 mg aspirin daily, Plavix 75 mg daily and Lipitor 75 mg at bedtime. Patient to continue medications in the outpatient setting. Continue neuro checks every shift. Patient does have recommendation for MRI of the brain given the patient's symptoms and history of cancer. Order has been placed her MRI brain without contrast at this time. Serum homocystine level is pending. EEG is ordered and pending. 2. Hyperlipidemia Patient's laboratory blood work noted elevated LDL at 137 and decreased HDL. Patient is already taking Lipitor 75 mg by mouth daily at bedtime. Continue medication as prescribed. Continue medication in outpatient setting. 3. Lung Mass Patient does have noted left lung mass on imaging. Defer to oncology and primary team for ongoing management of underlying etiology. 4. Retinal artery occlusion Continue follow-up management with marine machinist 5. Left lower extremity weakness Resolved STATUS: Neurology will continue to follow provide updates as needed or warranted. If patient's MRI of the brain is unremarkable or noncontributory and EEG has been taken patient could then be cleared for discharge if all other testing and diagnostic workup has been completed. If discharged prior to neurology rounding on 09/22/17, advise patient to contact our office within 10-14 days for a follow-up visit in the office. I discussed the patients history, physical exam, diagnostic testing, lab work and imaging with Dr Nicole prior to implementing the plan above. He agrees with the plan as implemented prior to implementation.
--- NOTE | 2017-09-21 15:16 | MR ---
EXAMINATION TYPE: MR brain wo con DATE OF EXAM: 09/21/2017 COMPARISON: CT brain 09/20/2017 HISTORY: Lt sided weakness, lt eye vision changes CONTRAST: Performed utilizing 0 mL intravenous Gadavist gadolinium contrast. TECHNIQUE: Multiplanar, multiecho imaging on a 3.0 Gala magnet is performed through the brain. Stud y is performed within 24 hours of arrival to the hospital. The craniovertebral junction is normal. The pituitary is normal. Diffusion-weighted imaging is performed. There are 2 punctate areas of hyperintensity within the rig ht centrum semiovale posteriorly. Diffusion images 192 and 184. Punctate hyperintensities on T2-weigh yulia sequences and inversion recovery weighted sequences suggest this is acute ischemic change. There are additional white matter changes present in the periventricular white matter and centrum semiovale bilaterally, likely on the basis of chronic white matter changes. Subcortical white matter changes a re in the left occipital lobe. No mass effect is evident. Ventricles and sulci are appropriate for the patient age. IMPRESSIONS: 1. Couple of punctate hyperintensities within the right posterior centrum semiovale can be some acute ischemic changes. 2. This is superimposed on moderately extensive periventricular and deep white matter ischemic type w maye matter changes.
[2017-09-21] MEDS ORDERED: amLODIPine 5 MG TAB PO STA (16:33)
[2017-09-21] MEDS ORDERED: hydrALAZINE HCL 25 MG TAB PO STA (16:34)
--- NOTE | 2017-09-21 16:39 | P.PN ---
Subjective Progress Note Date: 09/21/17 Patient feeling better today reports that he is back to his baseline denies any lower extremity pain or weakness, scheduled to have his MRI later today. No acute events overnight Objective - Vital Signs Vital signs: Vital Signs Temp 96.9 F L 09/21/17 08:00 Pulse 81 09/21/17 12:00 Resp 18 09/21/17 04:00 BP 174/105 09/21/17 12:00 Pulse Ox 95 09/21/17 12:00 Intake & Output 09/20/17 09/21/17 09/21/17 18:59 06:59 18:59 Intake Total 960 480 Balance 960 480 Weight 81.647 kg 80.4 kg Intake: Oral 960 480 Other: Voiding Method Toilet # Voids 2 1 - Exam Constitutional: No acute distress, conversant, pleasant Eyes: Anicteric sclerae, moist conjunctiva, no lid-lag, PERRLA ENMT: NC/AT,Oropharynx clear, no erythema, exudates Neck:Supple, FROM, no masses, or JVD, No carotid bruits; No thyromegaly Lungs: Clear to auscultation, Clear to percussion, Normal respiratory effort, no accessory muscle use Cardiovascular: Heart regular in rate and rhythm, No murmurs, gallops, or rubs no peripheral edema Abdominal: Soft Nontender, nom distended, no guarding, no rebound or rigidity, Normoactive bowel sounds No hepatomegaly, No splenomegaly, No palpable mass No abdominal wall hernia noted Skin: Normal temperature, tone, texture, turgor, No induration No subcutaneous nodules, No rash, lesions, No ulcers Extremities:No digital cyanosis No clubbing, Pedal pulses intact and symmetrical Radial pulses intact and symmetrical Normal gait and station, No calf tenderness Psychiatric: Alert and oriented to person, place and time, Appropriate affect Intact judgement Neuro: Muscles Strength 5/5 in all 4 extremities, Sensation to light touch grossly present throughout, Cranial nerves II-XII grossly intact. No focal sensory deficits - Labs CBC & Chem 7: 09/21/17 05:52 09/21/17 05:52 Labs: Abnormal Lab Results - Last 24 Hours (Table) 09/20/17 09/20/17 09/21/17 Range/Units 17:20 17:22 05:52 Chloride 109 H (98-107) mmol/L Carbon Dioxide 20 L (22-30) mmol/L Creatinine 1.37 H (0.66-1.25) mg/dL Glucose 166 H (74-99) mg/dL POC Glucose (mg/dL) 173 H (75-99) mg/dL LDL Cholesterol, Calc 137 H (0-99) mg/dL HDL Cholesterol 35 L (40-60) mg/dL Assessment and Plan (1) CVA (cerebral vascular accident) Narrative/Plan: * MRI suggesting posterior right centrum ovale acute CVA * Continue with dual antiplatelet therapy with Plavix and aspirin, continue statin therapy with Lipitor * Continue management risk factors such as his blood pressure * Patient's previous echocardiogram negative for any intracardiac shunts, with noted ejection fraction of 40-45% * Discontinue IV fluids * Appreciate neurology recommendations transfer EEG tomorrow Current Visit: Yes Status: Acute Code(s): I63.9 - CEREBRAL INFARCTION, UNSPECIFIED SNOMED Code(s): 651906472 (2) Hypertensive emergency Narrative/Plan: * We'll allow permissive hypertension patient's blood pressure elevated this evening 174/105 * Given a single dose of Norvasc and hydralazine now and schedule metoprolol BID and Norvasc daily Current Visit: Yes Status: Acute Code(s): I16.1 - HYPERTENSIVE EMERGENCY SNOMED Code(s): 183915826851218 (3) Ischemic cardiomyopathy Narrative/Plan: * History of AR with ejection fraction of 40-45% on recent EMMA * Appears compensated systolic heart failure * Continue medical therapy Current Visit: Yes Status: Acute Code(s): I25.5 - ISCHEMIC CARDIOMYOPATHY SNOMED Code(s): 833192599 (4) Tobacco dependence Narrative/Plan: * Continue with nicotine transdermal patch Current Visit: Yes Status: Acute Code(s): F17.200 - NICOTINE DEPENDENCE, UNSPECIFIED, UNCOMPLICATED SNOMED Code(s): 03543182 (5) Mass of upper lobe of left lung Narrative/Plan: * CTA concerning for bronchogenic adenocarcinoma. Appreciate pulmonary recommendations * Plans for outpatient evaluation of left upper lobe mass, will need a PFT, outpatient PET scan and biopsy both likely bronchoscopy Current Visit: Yes Status: Acute Code(s): R91.8 - OTHER NONSPECIFIC ABNORMAL FINDING OF LUNG FIELD SNOMED Code(s): 845351747 Plan: * Anticipate discharge in 1-2 days
[2017-09-21 17:11] LABS: Glucose,Whole Blood 95 mg/dL (75-99)
[2017-09-21 20:35] LABS: Glucose,Whole Blood 97 mg/dL (75-99)
[2017-09-21] MEDS ORDERED: ATORVASTATIN 80 MG TAB PO SCH (21:00)
[2017-09-21] MEDS: METOPROLOL TARTRATE 25 MG TAB PO SCH (21:53)
[2017-09-22 05:41] LABS: Glucose,Whole Blood 98 mg/dL (75-99)
[2017-09-22] MEDS: SODIUM CHLORIDE 0.9% 1,000 ML IV SCH (06:41)
[2017-09-22] MEDS: INSULIN ASPART 100 UNIT/ML 1 ML 10 ML VIAL SQ SCH ×3 (06:42→12:02)
[2017-09-22] MEDS: ASPIRIN 325 MG TAB PO SCH (08:32)
[2017-09-22] MEDS: NICOTINE 14MG/24HR PATCH TRANSDERM SCH (08:32)
[2017-09-22] MEDS: CLOPIDOGREL 75 MG TAB PO SCH (08:33)
[2017-09-22] MEDS: METOPROLOL TARTRATE 25 MG TAB PO SCH (08:33)
[2017-09-22] MEDS: HEPARIN SODIUM,PORCINE 5,000 UNIT/ML 1 ML VIAL SQ SCH (08:33)
[2017-09-22] MEDS: LISINOPRIL 10 MG TAB PO SCH (08:33)
[2017-09-22] MEDS ORDERED: amLODIPine 5 MG TAB PO SCH (09:00)
[2017-09-22 10:38] VITALS: TEMP 96.9
[2017-09-22 12:11] LABS: Glucose,Whole Blood 91 mg/dL (75-99)
--- NOTE | 2017-09-22 14:46 | P.DS ---
Providers Date of admission: 09/20/17 21:38 Expected date of discharge: 09/22/17 Attending physician: Janet Lauren Consults: 09/20/17 21:42 Consult Physician Routine Consulting Provider: Yandy Nicole Consult Reason/Comments: TIA Do you want consulting provider notified?: Yes 09/20/17 21:43 Consult Physician Routine Consulting Provider: Alexys Crowell Consult Reason/Comments: Left lung mass Do you want consulting provider notified?: Yes Primary care physician: Stated None - Discharge Diagnosis(es) (1) CVA (cerebral vascular accident) Current Visit: Yes Status: Acute (2) Hypertensive emergency Current Visit: Yes Status: Acute (3) Ischemic cardiomyopathy Current Visit: Yes Status: Acute (4) Tobacco dependence Current Visit: Yes Status: Acute (5) Mass of upper lobe of left lung Current Visit: Yes Status: Acute Hospital Course: The patient is a 67-year-old male with a past medical history of hypertension and coronary artery disease that presented with sudden onset left hemiplegia and was subsequently admitted Due to concern for CVA, his initial CT of his head was negative for any acute process, CT angiography of the head and neck was also negative for any intracranial pathology. The patient's symptoms resolved soon after presentation he was started on regimen with antiplatelet therapy with aspirin and Plavix, and started on statin Lipitor. Neurology was consulted MRI was ordered that was suggestive of a right posterior centrum ovale acute CVA, previous EMMA had ruled out any intracardiac shunts, but was consistent with ischemic cardiomyopathy with an ejection fraction of 40-45%. The patient was noted to be in hypertensive emergency which was controlled with Norvasc hydralazine and metoprolol. The patient was found to have a 2.7 cm pegylated bronchogenic mass in the left upper lobe concerning for underlying bronchogenic carcinoma, pulmonary Dr. Avendano was consulted And plans to continue the patient's workup in clinic as a patient will need a PFT, outpatient PET scan and likely a navigational bronchoscopy with biopsy. The patient was counseled on the importance of smoking cessation. He was subsequently discharged home in stable condition with new prescriptions for Norvasc, metoprolol Plavix aspirin and Lipitor. Of note the patient had no residual deficits on his physical exam from his CVA. This discharge process took approximately 35 minutes Description of discharge Amlodipine 5 mg by mouth daily Aspirin 325 mg's by mouth daily Metoprolol 25 mg by mouth twice a day Plavix 75 mg by mouth daily Atorvastatin 80 mg by mouth daily at bedtime Patient Condition at Discharge: Stable Plan - Discharge Summary Discharge Rx Participant: Yes New Discharge Prescriptions: New amLODIPine [Norvasc] 5 mg PO DAILY #60 tab Aspirin 325 mg PO DAILY #30 tab Atorvastatin [Lipitor] 80 mg PO HS #30 tab Clopidogrel [Plavix] 75 mg PO DAILY #30 tab Metoprolol Tartrate [Lopressor] 25 mg PO BID #60 tab Continue Ibuprofen [Motrin Ib] 400 mg PO Q6H PRN PRN Reason: Pain Lisinopril [Zestril] 10 mg PO DAILY #15 tab Discharge Medication List Ibuprofen [Motrin Ib] 400 mg PO Q6H PRN 08/27/17 [History] Lisinopril [Zestril] 10 mg PO DAILY #15 tab 08/27/17 [Rx] Aspirin 325 mg PO DAILY #30 tab 09/22/17 [Rx] Atorvastatin [Lipitor] 80 mg PO HS #30 tab 09/22/17 [Rx] Clopidogrel [Plavix] 75 mg PO DAILY #30 tab 09/22/17 [Rx] Metoprolol Tartrate [Lopressor] 25 mg PO BID #60 tab 09/22/17 [Rx] amLODIPine [Norvasc] 5 mg PO DAILY #60 tab 09/22/17 [Rx] Follow up Appointment(s)/Referral(s): Kashif Avendano DO [Doctor of Osteopathic Medicine] - 09/27/17 9:30 am () Yandy Nicole MD [STAFF PHYSICIAN] - 10 Days None,Stated [Primary Care Provider] - 1-2 days Activity/Diet/Wound Care/Special Instructions: Pt does not have a PCP
[2017-09-22 15:08] VITALS: BP 113/76; PULSE 62
--- NOTE | 2017-09-22 21:27 | P.PN ---
Subjective Progress Note Date: 09/22/17 Principal diagnosis: TIA Neurology is following on a 67-year-old male. TIA involving left lower extremity left-sided weakness. Symptoms resolved. Patient did have MRI of the brain which noted acute infarct. Based on imaging, patient was held for 24 hours to determine if infarct was evolving. Patient remained at baseline for the previous 24 hours. Patient is alert and oriented 3, sitting in bed in no acute distress. Patient requesting to be discharged. Objective - Vital Signs Vital signs: Vital Signs Temp 96.9 F L 09/22/17 08:00 Pulse 62 09/22/17 12:31 Resp 18 09/22/17 04:00 BP 113/76 09/22/17 12:31 Pulse Ox 99 09/22/17 12:31 Intake & Output 09/22/17 09/22/17 09/23/17 06:59 18:59 06:59 Intake Total 20 Output Total 600 Balance -600 20 Weight 78.3 kg Intake: Intake, IV Titration 20 Amount Sodium Chloride 0.9% 1, 20 000 ml @ 20 mls/hr IV . Q24H PENDING SALE TO [facility] Rx#:[id number] Output: Urine 600 Other: Voiding Method Toilet # Voids 1 - Exam General appearance: Alert & oriented x4, no apparent distress. Head: Atraumatic, normocephalic, normal inspection Eyes: Well appearance, PERRLA, EOMI. Absent scleral icterus, conjunctival injection, nystagmus, periorbital swelling. Ear, nose and throat: Normal exam, mucous membranes moist Neck: Normal inspection, absent tenderness, lymphadenopathy. Respiratory: No increased work of breathing Cardiovascular: Regular rate, rhythm GI/abdominal: Normal bowel sounds, nondistended, no tenderness, no guarding, no rebound, no rigidity. Extremities: All range of motion, normal capillary refill, no tenderness, pedal edema joint swelling, calf tenderness. Neurological: cranial nerves II through XII intact no lateralizing weakness no seizure activity noted on physical exam no pronator drift and no nystagmus. strength equal in all 4 extremities Sensation equal in all 4 extremities and normal to light touch. Psychological: Mood and affect appropriate for setting. - Labs CBC & Chem 7: 09/21/17 05:52 09/21/17 05:52 Assessment and Plan (1) TIA (transient ischemic attack) Status: Acute Code(s): G45.9 - TRANSIENT CEREBRAL ISCHEMIC ATTACK, UNSPECIFIED SNOMED Code(s): 662882876 (2) Lung mass Status: Acute Code(s): R91.8 - OTHER NONSPECIFIC ABNORMAL FINDING OF LUNG FIELD SNOMED Code(s): 828122888 (3) Hyperlipidemia Status: Acute Code(s): E78.5 - HYPERLIPIDEMIA, UNSPECIFIED SNOMED Code(s): 90214909 (4) Visual loss Status: Acute Code(s): H54.7 - UNSPECIFIED VISUAL LOSS SNOMED Code(s): 359538750 (5) Left leg weakness Status: Acute Code(s): R29.898 - OTH SYMPTOMS AND SIGNS INVOLVING THE MUSCULOSKELETAL SYSTEM SNOMED Code(s): 995874449 Plan: 1. TIA The patient presented with unilateral lateralizing weakness on the left lower extremity/left side. Patient's symptoms have resolved and are consistent with pTIA. Patient's CT angiogram as well as CT brain were unremarkable for acute process to account for symptoms. Patient is currently taking 35 mg aspirin daily, Plavix 75 mg daily and Lipitor 80 mg at bedtime. Patient to continue medications in the outpatient setting. Continue neuro checks every shift. Patient does have recommendation for MRI of the brain given the patient's symptoms and history of cancer. MRI brain noted acute infarct. Serum homocystine level is pending. EEG is ordered and pending. 2. Hyperlipidemia Patient's laboratory blood work noted elevated LDL at 137 and decreased HDL. Patient is already taking Lipitor 75 mg by mouth daily at bedtime. Continue medication as prescribed. Continue medication in outpatient setting. 3. Lung Mass Patient does have noted left lung mass on imaging. Defer to oncology and primary team for ongoing management of underlying etiology. 4. Retinal artery occlusion Continue follow-up management with postal worker 5. Left lower extremity weakness Resolved STATUS: Neurology will visit patient for discharge at this time. EEG has been taken. Patient to contact our office within 10-14 days for a follow-up visit in the office. I discussed the patients history, physical exam, diagnostic testing, lab work and imaging with Dr Nicole prior to implementing the plan above. He agrees with the plan as implemented prior to implementation. patient was originally seen at 0830 hrs. dictation delayed due to provider IT problems offsite.
--- NOTE | 2017-09-24 14:58 | EEG ---
ELECTROENCEPHALOGRAM REPORT DATE OF SERVICE: 09/21/2017 REASON FOR TESTING: Transient ischemic attack. DESCRIPTION OF THE PROCEDURE: This EEG was performed using a 21 channel digital electroencephalograph, following international 10-20 system. DESCRIPTION OF THE RECORDING: From the beginning of the tracing, with patient's eyes closed, the background rhythm was mostly consisting of 10 Hz alpha frequency in the posterior occipital leads. No obvious asymmetry is seen. Photic stimulation was performed with a minimal driving response seen. No pathological waves were elicited. Hyperventilation was not performed. Occasional movement artifacts are seen. The patient remains awake throughout the tracing. No epileptiform discharges were seen. INTERPRETATION: This awake EEG can be considered within normal limits. There was no asymmetry seen. No epileptiform discharges were noticed. The absence of epileptiform discharges does not rule out the diagnosis of epilepsy; therefore clinical correlation is recommended. ROXIE / TRACY: [id number] /
== END 2017-09-22 16:20 | disposition home or self-care (01) | DRG 65 ==
LOC: EC 17:12 → 6SEL 21:38
PROVIDERS: ADMIT Internal Medicine; ATTEND Internal Medicine
DX: I63.9 Cerebral infarction, unspecified (principal); I16.1 Hypertensive emergency; I50.22 Chronic systolic (congestive) heart failure; G81.94 Hemiplegia, unspecified affecting left nondominant side; C34.12 Malignant neoplasm of upper lobe, left bronchus or lung; J44.9 Chronic obstructive pulmonary disease, unspecified; I11.0 Hypertensive heart disease with heart failure; F17.210 Nicotine dependence, cigarettes, uncomplicated; H54.7 Unspecified visual loss; I25.10 Atherosclerotic heart disease of native coronary artery without angina pectoris; I25.2 Old myocardial infarction; E78.5 Hyperlipidemia, unspecified; I25.5 Ischemic cardiomyopathy; Z79.899 Other long term (current) drug therapy; Z82.49 Family history of ischemic heart disease and other diseases of the circulatory system; Z86.73 Personal history of transient ischemic attack (TIA), and cerebral infarction without residual deficits; Z91.19 Patient's noncompliance with other medical treatment and regimen; Z71.6 Tobacco abuse counseling; Z81.1 Family history of alcohol abuse and dependence
CPT/HCPCS: 36415; 70450; 70496; 70498; 70551; 71046; 80053; 80061; 82550; 82553; 82607; 83036; 83090; 83735; 84443; 84484; 85025; 85610; 85730; 93005; 95816; 96360; 96361; 99291

== ENCOUNTER → 2017-10-11 | Day surgery (SDC) | payer MEDICARE ==
[2017-10-05 10:23] VITALS: BMI 26.6
[~2017-10-11] MED LIST: ALBUTEROL NEB (CONC) 2.5 MG/0.5 ML INHALATION ONE; ATROPINE SULFATE 0.4 MG/ML 1 ML VIAL IM ONE; DEXAMETHASONE SOD PHOSPHATE 10 MG/ML 1 ML VIAL IV ONE; HYDROmorphone 0.5 MG/0.5 ML SYRINGE IVP PRN; LACTATED RINGERS 1,000 ML IV ONE; LACTATED RINGERS 1,000 ML IV SCH; LIDOCAINE 2% (PF) 20 MG/ML 2 ML AMP INHALATION ONE; LIDOCAINE VISCOUS 300 MG/15 ML CUP MUCOUS MEM ONE; ONDANSETRON 4 MG/2 ML VIAL IVP ONE
== END ==
LOC: ORWHC2ENDO 10:51
PROVIDERS: ATTEND Internal Medicine Critical Care Medicine
DX: Z53.9 Procedure and treatment not carried out, unspecified reason (principal)

== ENCOUNTER → 2017-10-13 | Outpatient (CLI) | payer MEDICARE ==
--- NOTE | 2017-10-13 17:40 | PE ---
EXAMINATION TYPE: PET CT fusion skull to thigh DATE OF EXAM: 10/13/2017 COMPARISON: CTA neck September 20, 2017 HISTORY: Lung mass (R 91.1 per order ) . Recent abnormal CT. TECHNIQUE: Following the intravenous administration of 13.58 mCi of F-18 FDG, whole body images are performed from the skull base to the midthigh. Images are reviewed on the computer in the coronal, a xial, and sagittal planes. Reconstructed rotating images are created on independent workstation and reviewed on the computer. A noncontrast CT is performed in conjunction with the PET scan. SCAN: Initial Scan FINDINGS: SKULL BASE AND NECK: No suspicious hypermetabolic uptake is seen in the neck. CHEST, MEDIASTINUM, AND HILAR REGION: Corresponding to recent CTA neck study there is suspicious 2.4 x 1.7 cm hypermetabolic left upper lobe nodule axial image 76 with max SUV of 10.05. There is adjacent suspicious enlarged prevascular lymph node measuring 1.6 x 1.1 cm axial image 77 wi thout abnormal hypermetabolic uptake. No additional areas of abnormal hypermetabolic uptake are present. ABDOMEN AND PELVIS: No suspicious there is hypermetabolic uptake are identified. No adrenal masses ar e noted. OSSEOUS STRUCTURES: No suspicious areas of abnormal hypermetabolic uptake are identified. OTHER CT: There is redemonstration of 1.5 cm mucous retention cyst or polyp inferiorly in the left ma xillary sinus. There is mild to moderate calcified plaque at bilateral carotid bulb level. There is left-sided arch with aberrant right brachiocephalic artery running posterior to the esophagu s, normal variant. There is moderate to severe 3 vessel coronary artery calcification and/or stents. Liver is diffusely low dense consistent with fatty infiltration. There is rim calcified 1.5 cm depend ent gallstone axial image 136. There is atherosclerotic and ectatic aorta. Aorta measures up to 2.6 cm in diameter axial image 172. No greater than 3 cm aneurysmal change is seen. There are diverticula in the left and to greater degree the sigmoid colon. Prostate gland is mildly enlarged bulging on bladder base, underlying BPH is felt present. Correlate clinically. There is mild to moderate facet arthropathy in the lower lumbar spine. IMPRESSION: Correlating with recent CTA neck there is abnormal hypermetabolic uptake in suspicious le ft upper lobe nodule strongly worrisome for neoplasm. No abnormal uptake is seen in the enlarged prev ascular lymph node. No additional suspicious hypermetabolic nodules, adenopathy, or metastatic malign jabier is evident.
== END | disposition home or self-care (01) ==
LOC: RADPETMAIN 13:35
PROVIDERS: ATTEND Internal Medicine Critical Care Medicine
DX: R91.1 Solitary pulmonary nodule (principal)
CPT/HCPCS: 78815; A9552

== ENCOUNTER 2017-10-31 10:32 | Day surgery (SDC) | payer MEDICARE ==
[2017-10-25 09:14] VITALS: BMI 25.8
[~2017-10-31 10:32] MED LIST changes: -ALBUTEROL NEB (CONC) 2.5 MG/0.5 ML INHALATION ONE; -ATROPINE SULFATE 0.4 MG/ML 1 ML VIAL IM ONE; -LACTATED RINGERS 1,000 ML IV ONE; +LIDOCAINE 1% 20 ML VIAL (10MG/ML) FOR IV START INTRADERMA PRN; -LIDOCAINE 2% (PF) 20 MG/ML 2 ML AMP INHALATION ONE; -LIDOCAINE VISCOUS 300 MG/15 ML CUP MUCOUS MEM ONE; +MIDAZOLAM 2 MG/2 ML VIAL IV PRN; +Pre Op ABX Message 1 EACH MISC MISCELLANE ONE; +SCOPOLAMINE 1.5MG/72HR PATCH TRANSDERM ONE
[2017-10-31] MEDS ORDERED: IPRATROPIUM-ALBUTEROL 3 ML NEB INHALATION STA (11:34)
[2017-10-31] MEDS ORDERED: NEOSTIGMINE 1 MG/ML 10 ML VIAL ONE (13:08)
[2017-10-31] MEDS ORDERED: LIDOCAINE 1% INJ 10MG/ML (20 ML MDV) ONE (13:08)
[2017-10-31] MEDS ORDERED: ROCURONIUM BROMIDE 10 MG/ML 10 ML VIAL IV ONE (13:08)
[2017-10-31] MEDS ORDERED: MIDAZOLAM 2 MG/2 ML VIAL ONE (13:08)
[2017-10-31] MEDS ORDERED: ESMOLOL 100 MG/10 ML VIAL ONE (13:08)
[2017-10-31] MEDS ORDERED: fentaNYL (PF) 50 MCG/ML 2 ML AMP ONE (13:08)
[2017-10-31] MEDS ORDERED: SUCCINYLCHOLINE CHLORIDE 100 MG/5 ML SYR IV ONE (13:08)
[2017-10-31] MEDS ORDERED: GLYCOPYRROLATE 0.2 MG/ML 2 ML VIAL ONE (13:08)
[2017-10-31] MEDS ORDERED: PROPOFOL 10 MG/ML 20 ML VIAL IV ONE (13:08)
--- NOTE | 2017-10-31 13:43 | CT ---
EXAMINATION TYPE: CT Chest billie Carter Protocol DATE OF EXAM: 10/31/2017 COMPARISON: PET CT 10/13/2017 HISTORY: Bronchial navigation CT DLP: 515 mGycm Automated exposure control for dose reduction was used. FINDINGS: There is a left upper lobe mass measuring 1.7 x 2.6 cm in the anterior left upper lobe. Series 5 imag e 15. There is a lymph node adjacent to the aortic arch level measuring 1.2 cm which is enlarged. Lissette tty lymphadenopathy is within the tracheal space. The ascending thoracic aorta at the level of main pulmonary artery is 3.5 cm. The main pulmonary monty ry the bifurcation is 2.1 cm. Coronary artery calcification is noted. Limited CT sections are obtained through the upper abdomen which appear unremarkable. IMPRESSION: 1. SOLITARY PULMONARY NODULE LEFT UPPER LOBE. 2. ENLARGED PERIAORTIC LYMPH NODE
[2017-10-31] MEDS ORDERED: IV FLUID CONTINUATION 1,000 ML IV ONE (14:17)
[2017-10-31 14:41] VITALS: TEMP 97.8
[2017-10-31 15:22] VITALS: RESP 20
--- NOTE | 2017-10-31 15:26 | XR ---
EXAMINATION TYPE: XR chest 1V portable DATE OF EXAM: 10/31/2017 COMPARISON: 09/20/2017 INDICATION: Postbiopsy TECHNIQUE: Single frontal view of the chest is obtained. FINDINGS: The heart size is normal. The pulmonary vasculature is normal. There is vague increased density through the left lung. The nodule is less well visualized than previ ous. No pneumothorax is evident post biopsy. IMPRESSION: 1. Left upper lobe nodule remains present. 2. No pneumothorax post biopsy.
[2017-10-31 15:44] VITALS: BP 138/82; PULSE 83
[2017-10-31 17:05] LABS: Appearance,BF Cloudy; Color,BF Red
[2017-10-31 17:33] LABS: RBC, Body Fluid 10200 /uL
--- NOTE | 2017-10-31 17:35 | OP ---
OPERATIVE REPORT PROCEDURE: Navigational bronchoscopy. The patient's procedure was done in room #3 inpatient [facility]. The patient was done under general anesthetic. The nurse duralumin mechanic was Clair BRYANNA, and then there was an anesthesiologist with her, I do not remember his name. There was informed consent. There was universal timeout. The operators were Dr. Avendano and Dr. Iglesias and we did transbronchial biopsies left upper lobe, needle biopsies left upper lobe, washes left upper lobe, attempted brushes left upper lobe, but could not localize the brush. The people from the [employer] and the [employer] were also in the room. After the patient was adequately sedated and under the effects of general anesthesia, the bronchoscope was inserted through the bronchoscope adapter connected to the endotracheal tube. We were able to localize the lesion under the electromagnetic navigational bronchoscopy screen. We did multiple transbronchial biopsies of the left upper lobe lesion with good localization as well as did needle biopsies x2 and washes in the left upper lobe. The patient tolerated the procedure well. There was minimal bleeding, if any at all. The patient will be recovered. The endotracheal tube will obviously be removed and the patient will be able to be discharged home later today. Chest x-ray was ordered and finally, I will have a conversation with the patient's son, who brought the patient here to the hospital. MMODL / IJN: [id number] /
[2017-10-31 19:41] LABS: Nucleated Cells, Body Fluid 100 /uL
[2017-10-31 21:53] LABS: Mononuclear WBC,Body Fluid 27 %; Polynuclear WBC,Body Fluid 70 %; Total Cells Counted,Body Fluid 100
== END 2017-10-31 15:52 | disposition home or self-care (01) ==
LOC: ORWHC2ENDO 10:32
PROVIDERS: ATTEND Internal Medicine Critical Care Medicine
DX: C34.12 Malignant neoplasm of upper lobe, left bronchus or lung (principal); J43.9 Emphysema, unspecified; F17.200 Nicotine dependence, unspecified, uncomplicated; Z86.73 Personal history of transient ischemic attack (TIA), and cerebral infarction without residual deficits; I25.2 Old myocardial infarction; I10 Essential (primary) hypertension; Z79.82 Long term (current) use of aspirin; Z79.02 Long term (current) use of antithrombotics/antiplatelets; Z79.1 Long term (current) use of non-steroidal anti-inflammatories (NSAID); Z79.899 Other long term (current) drug therapy
CPT/HCPCS: 94640; 87798 ×3; 87496; 87498; 87529; 88108; 88305; 88173; 89050; 88342; 87252; 87502; 87634; 88341; 87070; 87205; 87116; 87102; 87206; 71045; 71250; 31628; 31627; J2250; J1100; J2710; J2405; J2001; J3010; J0330; J2704; 31622; 31624; 31625

== ENCOUNTER → 2017-12-12 | Outpatient (CLI) | payer MEDICARE ==
[2017-12-12 12:11] LABS: Basophils # (A) 0.1 k/uL (0-0.2); Basophils % (A) 1 %; Eosinophils # (A) 0.1 k/uL (0-0.7); Eosinophils % (A) 2 %; HCT 50.5 % (39.0-53.0); HGB 16.2 gm/dL (13.0-17.5); Lymphocytes # (A) 2.9 k/uL (1.0-4.8); Lymphocytes % (A) 38 %; MCH 30.4 pg (25.0-35.0); MCHC 32.1 g/dL (31.0-37.0); MCV 94.4 fL (80.0-100.0); Mean Platelet Volume 6.4; Monocytes # (A) 0.5 k/uL (0-1.0); Monocytes % (A) 6 %; Neutrophils # (A) 3.8 k/uL (1.3-7.7); Neutrophils % (A) 51 %; Platelet Count 319 k/uL (150-450); RBC 5.35 m/uL (4.30-5.90); RDW 13.1 % (11.5-15.5); WBC 7.5 k/uL (3.8-10.6)
[2017-12-12 12:12] LABS: Partial Thromboplastin Time 22.5 sec (22.0-30.0); Potassium 4.7 mmol/L (3.5-5.1); Prothrombin Time 9.9 sec (9.0-12.0)
== END | disposition home or self-care (01) ==
LOC: LABPAT 11:05
PROVIDERS: ATTEND Thoracic Surgery (Cardiothoracic Vascular Surgery)
DX: Z01.812 Encounter for preprocedural laboratory examination (principal); C34.90 Malignant neoplasm of unspecified part of unspecified bronchus or lung
CPT/HCPCS: 36415; 80051; 82565; 82947; 84520; 85025; 85610; 85730

== ENCOUNTER 2017-12-20 05:47 | Inpatient (IN) | payer MEDICARE ==
[~2017-12-20 05:47] MED LIST changes: -HYDROmorphone 0.5 MG/0.5 ML SYRINGE IVP PRN; -LACTATED RINGERS 1,000 ML IV SCH; -Pre Op ABX Message 1 EACH MISC MISCELLANE ONE; -SCOPOLAMINE 1.5MG/72HR PATCH TRANSDERM ONE; +ceFAZolin IN SWFI 2 GM/20 ML SYRINGE IVP ONE; +fentaNYL (PF) 50 MCG/ML 2 ML AMP IV PRN
[2017-12-20] MEDS: LACTATED RINGERS 1,000 ML IV SCH ×2 (06:29→06:38)
[2017-12-20] MEDS ORDERED: NEOSTIGMINE 1 MG/ML 10 ML VIAL ONE (07:26)
[2017-12-20] MEDS ORDERED: PROPOFOL 10 MG/ML 20 ML VIAL IV ONE (07:26)
[2017-12-20] MEDS ORDERED: fentaNYL (PF) 50 MCG/ML 2 ML AMP ONE (07:26)
[2017-12-20] MEDS ORDERED: MIDAZOLAM 2 MG/2 ML VIAL ONE (07:26)
[2017-12-20] MEDS ORDERED: METOPROLOL TARTRATE 5 MG/5 ML VIAL IVP ONE (07:26)
[2017-12-20] MEDS ORDERED: ROCURONIUM BROMIDE 10 MG/ML 10 ML VIAL IV ONE (07:26)
[2017-12-20] MEDS ORDERED: GLYCOPYRROLATE 0.2 MG/ML 2 ML VIAL ONE (07:26)
[2017-12-20] MEDS ORDERED: LABETALOL 5 MG/ML VIAL MDV ONE (07:26)
[2017-12-20] MEDS ORDERED: ROPIVACAINE 5 MG/ML 30 ML VIAL MISCELLANE ONE (08:05)
[2017-12-20] MEDS ORDERED: IPRATROPIUM-ALBUTEROL 3 ML NEB IH PRN (10:09)
[2017-12-20] MEDS ORDERED: ONDANSETRON 4 MG/2 ML VIAL IVP PRN (10:09)
[2017-12-20] MEDS ORDERED: DEXTROSE 5%-0.45% NACL 1,000 ML IV SCH (10:15)
--- NOTE | 2017-12-20 10:24 | P.OP ---
Date of Procedure: 12/20/17 Preoperative Diagnosis: Lung cancer left upper lobe Postoperative Diagnosis: Same Procedure(s) Performed: Left robotic-assisted thoracoscopic upper lobectomy with mediastinal lymph node dissection Anesthesia: TEO Surgeon: Harpal Bey Toy Consultant #1: Bhavik Sarmiento Estimated Blood Loss (ml): 20 IV fluids (ml): 1,000 Urine output (ml): 500 Pathology: other (Left upper lobe, lymph nodes from stations L 11, L 10, 7, L6, L5) Condition: stable Disposition: PACU Indications for Procedure: 67-year-old male with left upper lobe mass. Transbronchial biopsy demonstrated squamous cell carcinoma. PET scan was negative for uptake in the hilum or lymph nodes although enlarged lymph nodes were present. EBUS was performed and lymph nodes were negative. Patient was therefore staged as stage I squamous cell carcinoma and lobectomy was recommended. Pulmonary function was adequate. Cardiology clearance was obtained. Operative Findings: Fissures were complete. There were anthracotic lymph nodes present in the hilum and subcarinal region. Lymph nodes in L5 and L6 regions were zafar. Tumor was peripheral. There were inconsequential air leaks at the end of the procedure. Bleeding was minimal. Description of Procedure: The patient was brought to the operating room, placed supine on the operating table, anesthetized and intubated with a double-lumen endotracheal tube. The tube was positioned with fiberoptic bronchoscopy. No endobronchial lesions were noted. The patient was turned in the right lateral decubitus position and the left chest appropriately positioned and prepped and draped for robotic lobectomy. Additional 1 cm incision was made in the seventh interspace in the anterior axillary line. An 8 mm robotic port was placed. Single lung ventilation had already been inserted. Presence in the pleural space was confirmed with the endoscope and CO2 insufflation was begun. 10 cm anterior and 10 cm posterior to this initial port were placed 2 12 mm robotic ports. A second 8 mm port was placed in the fourth interspace posteriorly near the spine. A working port was placed at the level of the diaphragm between the 2 anteriormost ports. The robot was docked. Exploration revealed complete fissures. Dissection was begun in the fissures and posterior segmental branch of the pulmonary artery to the upper lobe was encircled and ligated and divided with a robotic stapler. Lymph nodes sitting in the fissure was resected and sent as L 11 lymph node. Dissection was then carried down onto the inferior pulmonary ligament which was mobilized. Dissection was continued posteriorly above the inferior pulmonary vein and the level VII lymph nodes were dissected. Dissection was carried across the mainstem bronchus and the LTAC lymph nodes were resected. We now carried the dissection anteriorly. The inferior and superior pulmonary veins were identified and dissection was carried between them. Lymph nodes in this region were resected and sent as L 11 lymph nodes. Dissection was carried out around the branches of the superior pulmonary vein and it was ligated and divided with 2 separate firings of Endo CRISTINA vascular stapler. We now carried the dissection onto the bronchus and the lymph nodes were resected en bloc with the specimen by mobilizing them at this point. We encircled the left upper lobe bronchus and ligated and divided it with a single firing of robotic endoscopic thick stapler. The lingular branch of the pulmonary artery was very large. It was encircled and divided with a robotic vascular stapler. The remaining 2 branches of the pulmonary artery superiorly and proximally. These were encircled and taken with a single firing of endoscopic robotic vascular stapler. The level V and level lymph nodes were dissected out and sent for permanent section. The lobectomy specimen was now placed in an Endo Catch bag. Was brought out through the working port incision which had to be enlarged somewhat. The robot was undocked. Chest was irrigated out with warm sterile water and the lung inflated. There was no leak from the bronchial stump. There was minimal leak from the upper lobe near the dissection in the hilum. 28-Polish chest tube was placed through the anteriormost port incision and positioned posterior apically. It was secured with an 0 Ethibond suture. Rib blocks were performed at the level of the incisions with half percent Marcaine. Incisions were closed with layers of Vicryl suture. Skin glue and dry sterile dressings were applied, the patient was turned supine and extubated and transferred to recovery room in stable condition.
[2017-12-20] MEDS ORDERED: HYDROmorphone 1 MG/ML 1 ML SYRINGE IVP ONE (10:27)
[2017-12-20] MEDS ORDERED: MIDAZOLAM 2 MG/2 ML VIAL IVP ONE (10:27)
--- NOTE | 2017-12-20 11:06 | XR ---
EXAMINATION TYPE: XR chest 1V portable DATE OF EXAM: 12/20/2017 COMPARISON: 10/31/2017 HISTORY: Status post left lobectomy for left upper lobe neoplasm. TECHNIQUE: Single frontal view of the chest is obtained. FINDINGS: Left upper lobe has been surgically removed and there is a left-sided thoracostomy tube pr esent. No pneumothorax is seen. The previously seen left upper lobe mass is no longer evident. Medias tinum is slightly rotated secondary to patient positioning but appears grossly unremarkable. No right -sided pneumothorax. Strand-like atelectasis is seen at the costophrenic angles. IMPRESSION: Status post left upper lobectomy with appropriately placed left thoracostomy tube with n o residual pneumothorax. Minimal bibasilar atelectasis is present.
[2017-12-20] MEDS: IPRATROPIUM-ALBUTEROL 3 ML NEB IH SCH ×3 (11:40→20:04)
[2017-12-20] MEDS: KETOROLAC 30 MG/ML 1 ML VIAL IVP SCH ×2 (12:09→17:52)
[2017-12-20] MEDS: traMADol 50 MG TAB PO SCH ×3 (14:06→20:32)
[2017-12-20] MEDS: BRIMONIDINE TARTRATE 0.2% DROPS 5 ML BTL BOTH EYES SCH ×2 (15:03→23:42)
[2017-12-20] MEDS: ceFAZolin IN SWFI 2 GM/20 ML SYRINGE IVP SCH (15:03)
[2017-12-20] MEDS: HEPARIN SODIUM,PORCINE 5,000 UNIT/ML 1 ML VIAL SQ SCH (15:03)
--- NOTE | 2017-12-20 16:58 | P.CNPUL ---
History of Present Illness Consult date: 12/20/17 Reason for consult: lung mass History of present illness: This is a 67-year-old male patient with known history of left upper lobe mass, spiculated, highly suspicious for malignancy. PET scan was done and showed increased activity within the primary tumor with negative uptake within the mediastinal lymph nodes. The patient underwent navigational bronchoscopy and the findings was positive for squamous cell carcinoma. The patient was diagnosed having stage I squamous cell cancer and the patient was referred to surgical resection by Dr. Harpal Bey. The preop PFT showed an FEV1 of 2.36 L which is 72% of predicted. Diffusion capacity was 20.29 which is 65% of predicted. Today, the patient underwent a left upper lobe resection. The patient is currently being seen postop. He is calm and comfortable. No complaints. The left-sided chest tube is in place. No evidence of any air leak. No evidence of any residual pneumothorax. Some limited atelectatic changes in lung bases was seen. Otherwise he is hemodynamically stable. Pain is under good control. He is receiving tramadol 50 mg 4 times a day on a when necessary basis for pain in addition to Toradol. Hemodynamically stable. Afebrile. He is currently on 2 L of oxygen by nasal cannula with a pulse ox of 98%. Review of Systems For review of system was done and is negative other than things mentioned above in history of present illness. Currently is recovering from surgery. Is postop day #0. No weight loss. No hemoptysis. No chest pain. No altered mentation. Moving all 4 extremities without any limitation. 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 30 years ., currently smoking < 1/2 ppd Past Drug Use History: None Reported - Past Family History Mother Family Medical History: No Reported History Father Additional Family Medical History / Comment(s): alcoholism Medications and Allergies Home Medications Medication Instructions Recorded Confirmed Type Ibuprofen [Motrin Ib] 400 mg PO Q6H PRN 08/27/17 12/20/17 History Lisinopril [Zestril] 10 mg PO DAILY #15 tab 08/27/17 12/20/17 Rx Aspirin 325 mg PO DAILY #30 tab 09/22/17 12/20/17 Rx Atorvastatin [Lipitor] 80 mg PO HS #30 tab 09/22/17 12/20/17 Rx Clopidogrel [Plavix] 75 mg PO DAILY #30 tab 09/22/17 12/20/17 Rx Metoprolol Succinate [Toprol XL] 25 mg PO DAILY 12/17/17 12/20/17 History Brimonidine Tartrate [Alphagan P 1 drops BOTH EYES Q8H 12/20/17 12/20/17 History 0.1% Ophth Soln] Allergies Allergy/AdvReac Type Severity Reaction Status Date / Time No Known Allergies Allergy Verified 12/20/17 12:39 Physical Exam Vitals: Vital Signs Temp Pulse Resp BP BP Pulse Ox 12/20/17 12:00 97.7 F 64 16 138/87 98 12/20/17 11:24 65 16 151/90 97 12/20/17 11:08 64 16 169/96 96 12/20/17 10:45 62 16 139/81 97 12/20/17 10:30 62 16 154/89 99 12/20/17 10:18 97.0 F L 90 28 H 180/90 97 12/20/17 06:39 180/104 12/20/17 06:27 97.7 F 71 18 183/95 97 Intake and Output 12/20/17 12/20/17 12/20/17 06:59 14:59 22:59 Intake Total 200 850 Output Total 100 Balance 200 750 Intake: IV 200 850 Output: Urine 80 Estimated Blood Loss 20 Other: Voiding Method Indwelling Catheter No acute distress, oriented 3. HEENT examination is grossly unremarkable. Mucous membranes are moist. No oral lesions. TMs and EACs are normal. Nasal mucosa is normal. Neck supple. Full range of motion. No adenopathy thyromegaly or neck vein distention. Cardiovascular examination reveals regular rhythm rate. S1-S2 normal. No S3 or S4. No discernible murmur noted. Lungs reveal a few scattered rhonchi. Breath sounds are diminished. Slight prolongation on forced maneuver. No wheezes or crackles. Surgical wound site over the left chest area is dry clean and intact. Chest tube is in place. Diminished breath on the left compared to the right. Abdomen soft bowel sounds are heard. No masses or tenderness. Extremities are intact. No cyanosis clubbing or edema. Skin is without rash or lesion. Neurologic examination is brief but nonfocal. Results - Diagnostic Findings Chest x-ray: image reviewed Assessment and Plan Plan: 1 stage I, non-small cell lung cancer of a squamous cell type. Patient is status post robotic-assisted thoracoscopic upper lobe resection with mediastinal lymph node dissection. Patient is postop day #0. 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 Adequate pain control. Continue bronchodilators. Keep the chest tube in place. Daily chest x-ray. Awaiting final path for postsurgical staging. Outpatient indication be ordered resume. We'll continue to follow.
[2017-12-20] MEDS: ATORVASTATIN 80 MG TAB PO SCH (20:32)
[2017-12-21] MEDS: HEPARIN SODIUM,PORCINE 5,000 UNIT/ML 1 ML VIAL SQ SCH ×4 (00:38→23:25)
[2017-12-21] MEDS: ceFAZolin IN SWFI 2 GM/20 ML SYRINGE IVP SCH (00:38)
[2017-12-21] MEDS: KETOROLAC 30 MG/ML 1 ML VIAL IVP SCH ×5 (00:38→23:25)
[2017-12-21] MEDS: PANTOPRAZOLE 40 MG TABLET PO SCH (06:09)
[2017-12-21 07:15] LABS: Basophils % (A) 0 %; Eosinophils # (A) 0.1 k/uL (0-0.7); Eosinophils % (A) 1 %; HCT 46.5 % (39.0-53.0); HGB 15.5 gm/dL (13.0-17.5); Lymphocytes # (A) 1.9 k/uL (1.0-4.8); Lymphocytes % (A) 18 %; MCHC 33.2 g/dL (31.0-37.0); MCV 93.1 fL (80.0-100.0); Mean Platelet Volume 6.6; Monocytes # (A) 0.6 k/uL (0-1.0); Monocytes % (A) 5 %; Neutrophils # (A) 7.9 k/uL (1.3-7.7); Neutrophils % (A) 75 %; Platelet Count 255 k/uL (150-450); RBC 4.99 m/uL (4.30-5.90); RDW 12.8 % (11.5-15.5); WBC 10.6 k/uL (3.8-10.6)
--- NOTE | 2017-12-21 07:29 | XR ---
EXAMINATION TYPE: XR chest 1V DATE OF EXAM: 12/21/2017 COMPARISON: 12/20/2017 HISTORY: SOB, Follow Up FINDINGS: Left-sided chest tube is unchanged in position. Tiny left apical pneumothorax persists. Basilar linear atelectasis identified. Stable appearance of the cardio-mediastinal structures at this time. Pleural effusion unchanged. IMPRESSION: 1. Left-sided chest tube is unchanged in position. Tiny left apical pneumothorax persists. Basilar linear atelectasis identified.
[2017-12-21 07:35] LABS: Calcium 9.2 mg/dL (8.4-10.2); Potassium 4.3 mmol/L (3.5-5.1)
[2017-12-21] MEDS: LISINOPRIL 10 MG TAB PO SCH (08:22)
[2017-12-21] MEDS: traMADol 50 MG TAB PO SCH ×4 (08:22→21:36)
[2017-12-21] MEDS: METOPROLOL SUCCINATE (ER) 25 MG TAB.ER.24H PO SCH (08:22)
[2017-12-21] MEDS: ASPIRIN 325 MG TAB PO SCH (08:22)
[2017-12-21] MEDS: CLOPIDOGREL 75 MG TAB PO SCH (08:22)
[2017-12-21] MEDS: BRIMONIDINE TARTRATE 0.2% DROPS 5 ML BTL BOTH EYES SCH ×3 (08:23→21:46)
[2017-12-21] MEDS: IPRATROPIUM-ALBUTEROL 3 ML NEB IH SCH ×4 (09:53→19:25)
--- NOTE | 2017-12-21 16:10 | P.PN ---
Subjective Progress Note Date: 12/21/17 Principal diagnosis: Lung cancer left upper lobe, stage I squamous cell carcinoma. Previous medical history of hypertension, hyperlipidemia, myocardial infarction, stroke with near total loss of vision in the left eye, previous tobacco dependence, and COPD with a preoperative FEV1 72% of predicted. POD #1 left robotic-assisted thoracoscopic upper lobectomy with mediastinal lymph node dissection. Patient is currently sitting up in the chair in no acute distress. States pain is controlled on current medications. When asked does state he has some mild shortness of breath. The patient is eating and ambulating. No new complaints. Objective - Vital Signs Vital signs: Vital Signs Temp 98.3 F 12/21/17 12:00 Pulse 86 12/21/17 15:37 Resp 16 12/21/17 15:37 BP 147/84 12/21/17 12:00 Pulse Ox 96 12/21/17 12:00 Intake & Output 12/20/17 12/21/17 12/21/17 18:59 06:59 18:59 Intake Total 850 320 340 Output Total 134 730 10 Balance 716 -410 330 Weight 81.6 kg Intake: IV 850 Intake, IV Titration 320 Amount Dextrose 5%-0.45% NaCl 1, 320 000 ml @ 40 mls/hr IV . Q24H [facility] Rx#:[id number] Oral 0 340 Output: Chest Tube Drainage 34 30 10 Chest Tube Left Lateral 34 30 10 Chest Urine 80 700 Estimated Blood Loss 20 Other: Voiding Method Indwelling Catheter Indwelling Catheter Urinal # Voids 0 - Constitutional General appearance: Present: cooperative, no acute distress - Respiratory Details: Lungs sounds diminished bilaterally, left greater than right. Respirations even , nonlabored. Currently on 2 L nasal cannula with oxygen saturation 96%. Left pleural chest tube present, connected to continuous wall suction, 25 mL serosanguineous drainage overnight, 65 mL since surgery, positive intermittent air leak present. - Cardiovascular Details: S1, S2 present. Regular rate and rhythm, sinus rhythm on telemetry. Palpable peripheral pulses bilaterally. No edema present. No calf pain or tenderness noted. SCDs present. - Gastrointestinal Gastrointestinal Comment(s): Abdomen soft, nontender, nondistended. Active bowel sounds present 4 quadrants. Tolerating diet. - Genitourinary Genitourinary Comment(s): Lopez discontinued this morning. Patient has voided several times. - Integumentary Integumentary Comment(s): Skin is warm and dry with evidence of good perfusion. Left lateral wall incisions well approximated. - Neurologic Neurologic: Present: CNII-XII intact - Musculoskeletal Musculoskeletal: Present: gait normal, strength equal bilaterally - Psychiatric Psychiatric: Present: A&O x's 3, appropriate affect, intact judgment & insight - Allied health notes Allied health notes reviewed: nursing - Labs CBC & Chem 7: 12/21/17 06:57 12/21/17 06:57 Labs: Abnormal Lab Results - Last 24 Hours (Table) 12/21/17 12/21/17 Range/Units 06:57 06:57 Neutrophils # 7.9 H (1.3-7.7) k/uL Chloride 109 H (98-107) mmol/L BUN 21 H (9-20) mg/dL Glucose 122 H (74-99) mg/dL - Imaging and Cardiology Chest x-ray: report reviewed, image reviewed Assessment and Plan (1) Hypertension Current Visit: Yes Status: Chronic Code(s): I10 - ESSENTIAL (PRIMARY) HYPERTENSION SNOMED Code(s): 87618339 (2) History of CVA (cerebrovascular accident) Current Visit: No Status: Resolved Code(s): Z86.73 - PRSNL HX OF TIA (TIA), AND CEREB INFRC W/O RESID DEFICITS SNOMED Code(s): 968067171 (3) Tobacco dependence in remission Current Visit: No Status: Resolved Code(s): F17.201 - NICOTINE DEPENDENCE, UNSPECIFIED, IN REMISSION SNOMED Code(s): 715239103 (4) Lung cancer Current Visit: Yes Status: Chronic Code(s): C34.90 - MALIGNANT NEOPLASM OF UNSP PART OF UNSP BRONCHUS OR LUNG SNOMED Code(s): 075066062 (5) Hyperlipidemia Current Visit: Yes Status: Chronic Code(s): E78.5 - HYPERLIPIDEMIA, UNSPECIFIED SNOMED Code(s): 32995886 (6) Mass of upper lobe of left lung Current Visit: Yes Status: Chronic Code(s): R91.8 - OTHER NONSPECIFIC ABNORMAL FINDING OF LUNG FIELD SNOMED Code(s): 072701525 (7) History of myocardial infarction Current Visit: No Status: Resolved Code(s): I25.2 - OLD MYOCARDIAL INFARCTION SNOMED Code(s): 236281135 (8) COPD (chronic obstructive pulmonary disease) Current Visit: Yes Status: Chronic Code(s): J44.9 - CHRONIC OBSTRUCTIVE PULMONARY DISEASE, UNSPECIFIED SNOMED Code(s): 96785496 Plan: 1. Left pleural chest tube placed to waterseal this morning. Will continue to monitor for complete resolution of air leak. 2. Encourage incentive spirometry 10 times every hour while awake. 3. Wean O2 as tolerated. 4. Bronchodilators per pulmonology. 5. GI/DVT prophylaxis. 6. Pain control with current medication regimen. 7. Increase activity, ambulate in hallway. 8. Will monitor daily labs and x-rays. 9. More recommendations to follow. Time with Patient: Greater than 30
--- NOTE | 2017-12-21 17:30 | P.PN ---
Subjective Progress Note Date: 12/21/17 This is a 67-year-old male patient with known history of left upper lobe mass, spiculated, highly suspicious for malignancy. PET scan was done and showed increased activity within the primary tumor with negative uptake within the mediastinal lymph nodes. The patient underwent navigational bronchoscopy and the findings was positive for squamous cell carcinoma. The patient was diagnosed having stage I squamous cell cancer and the patient was referred to surgical resection by Dr. Harpal Bey. The preop PFT showed an FEV1 of 2.36 L which is 72% of predicted. Diffusion capacity was 20.29 which is 65% of predicted. Today, the patient underwent a left upper lobe resection. The patient is currently being seen postop. He is calm and comfortable. No complaints. The left-sided chest tube is in place. No evidence of any air leak. No evidence of any residual pneumothorax. Some limited atelectatic changes in lung bases was seen. Otherwise he is hemodynamically stable. Pain is under good control. He is receiving tramadol 50 mg 4 times a day on a when necessary basis for pain in addition to Toradol. Hemodynamically stable. Afebrile. He is currently on 2 L of oxygen by nasal cannula with a pulse ox of 98%. On and I'm seeing this patient for a follow-up. The patient is sitting up on a chair. Chest tube still in place. The amount of output is 25 mL over the past shift and 65 mL since last night. Minimal amount of air leak present. Chest x-ray shows Expansion of the right lung. Chest tube is in a good location.. The patient using incentive spirometer. No magistral difficulties for now. No fever. No chills. No pain. No other complaints otherwise for now. Blood work is within normal limits Objective - Vital Signs Vital signs: Vital Signs Temp 98.1 F 12/21/17 15:59 Pulse 78 12/21/17 16:27 Resp 16 12/21/17 16:14 BP 137/91 12/21/17 15:59 Pulse Ox 92 L 12/21/17 16:14 Intake & Output 12/20/17 12/21/17 12/21/17 18:59 06:59 18:59 Intake Total 850 320 340 Output Total 134 730 10 Balance 716 -410 330 Weight 81.6 kg Intake: IV 850 Intake, IV Titration 320 Amount Dextrose 5%-0.45% NaCl 1, 320 000 ml @ 40 mls/hr IV . Q24H [facility] Rx#:[id number] Oral 0 340 Output: Chest Tube Drainage 34 30 10 Chest Tube Left Lateral 34 30 10 Chest Urine 80 700 Estimated Blood Loss 20 Other: Voiding Method Indwelling Catheter Indwelling Catheter Urinal # Voids 0 - Exam No acute distress, oriented 3. HEENT examination is grossly unremarkable. Mucous membranes are moist. No oral lesions. TMs and EACs are normal. Nasal mucosa is normal. Neck supple. Full range of motion. No adenopathy thyromegaly or neck vein distention. Cardiovascular examination reveals regular rhythm rate. S1-S2 normal. No S3 or S4. No discernible murmur noted. Lungs reveal a few scattered rhonchi. Breath sounds are diminished. Slight prolongation on forced maneuver. No wheezes or crackles. Surgical wound site over the left chest area is dry clean and intact. Chest tube is in place. Diminished breath on the left compared to the right. Abdomen soft bowel sounds are heard. No masses or tenderness. Extremities are intact. No cyanosis clubbing or edema. Skin is without rash or lesion. Neurologic examination is brief but nonfocal. - Labs CBC & Chem 7: 12/21/17 06:57 12/21/17 06:57 Labs: Abnormal Lab Results - Last 24 Hours (Table) 12/21/17 12/21/17 Range/Units 06:57 06:57 Neutrophils # 7.9 H (1.3-7.7) k/uL Chloride 109 H (98-107) mmol/L BUN 21 H (9-20) mg/dL Glucose 122 H (74-99) mg/dL Assessment and Plan Plan: 1 stage I, non-small cell lung cancer of a squamous cell type. Patient is status post robotic-assisted thoracoscopic upper lobe resection with mediastinal lymph node dissection. Patient is postop day #1 2 COPD with a preop FEV1 in the order of 72% of predicted 3 coronary artery disease with previous history of myocardial infarction back in 1998 4 hypertension 5 history of CVA with near total loss of vision in the left eye secondary to an embolic event involving the left ophthalmic artery 6 smoker and the patient smoked for many years until 1 pack of cigarettes a day quit smoking approximately a month ago Plan Patient is doing extremely well. Keep the chest to follow 24 hours. Repeat chest x-ray in the morning. Ambulate. Continue using incentive spirometer. We 'll continue to follow. Final path is not out yet.
[2017-12-21] MEDS: ATORVASTATIN 80 MG TAB PO SCH (21:36)
[2017-12-22] MEDS: KETOROLAC 30 MG/ML 1 ML VIAL IVP SCH ×4 (06:15→23:09)
[2017-12-22] MEDS: PANTOPRAZOLE 40 MG TABLET PO SCH (06:15)
--- NOTE | 2017-12-22 07:26 | XR ---
EXAMINATION TYPE: XR chest 2V DATE OF EXAM: 12/22/2017 HISTORY: post lobectomy. REFERENCE: Previous study dated 12/21/2017. FINDINGS: There is a left pleural drain in place. The patient's previously described pneumothorax is not identified on this study. The lungs appear clear. Pleural spaces are clear. Heart size upper limi ts of normal. IMPRESSION: RESOLUTION OF THE PATIENT'S TINY LEFT-SIDED APICAL PNEUMOTHORAX.
[2017-12-22 07:31] LABS: HCT 42.3 % (39.0-53.0); HGB 13.9 gm/dL (13.0-17.5); MCH 30.8 pg (25.0-35.0); MCHC 32.9 g/dL (31.0-37.0); MCV 93.6 fL (80.0-100.0); Platelet Count 272 k/uL (150-450); RBC 4.52 m/uL (4.30-5.90); RDW 12.8 % (11.5-15.5)
[2017-12-22 07:47] LABS: Calcium 9.1 mg/dL (8.4-10.2); Potassium 5.2 mmol/L (3.5-5.1)
[2017-12-22] MEDS: IPRATROPIUM-ALBUTEROL 3 ML NEB IH SCH ×4 (08:25→19:29)
[2017-12-22] MEDS: ASPIRIN 325 MG TAB PO SCH (09:16)
[2017-12-22] MEDS: HEPARIN SODIUM,PORCINE 5,000 UNIT/ML 1 ML VIAL SQ SCH ×3 (09:16→23:10)
[2017-12-22] MEDS: LISINOPRIL 10 MG TAB PO SCH (09:17)
[2017-12-22] MEDS: CLOPIDOGREL 75 MG TAB PO SCH (09:17)
[2017-12-22] MEDS: METOPROLOL SUCCINATE (ER) 25 MG TAB.ER.24H PO SCH (09:17)
[2017-12-22] MEDS: traMADol 50 MG TAB PO SCH ×3 (09:17→23:08)
[2017-12-22] MEDS: BRIMONIDINE TARTRATE 0.2% DROPS 5 ML BTL BOTH EYES SCH ×3 (09:18→19:59)
--- NOTE | 2017-12-22 10:11 | P.PN ---
Subjective Progress Note Date: 12/22/17 Principal diagnosis: Lung cancer left upper lobe, stage I squamous cell carcinoma. Previous medical history of hypertension, hyperlipidemia, myocardial infarction, stroke with near total loss of vision in the left eye, previous tobacco dependence, and COPD with a preoperative FEV1 72% of predicted. POD #2 left robotic-assisted thoracoscopic upper lobectomy with mediastinal lymph node dissection. Patient is currently sitting up in the bed in no acute distress. States pain is controlled on current medications. Denies shortness of breath. The patient is eating and ambulating. No new complaints. Objective - Vital Signs Vital signs: Vital Signs Temp 98.8 F 12/22/17 09:00 Pulse 82 12/22/17 09:00 Resp 16 12/22/17 09:00 BP 154/85 12/22/17 09:00 Pulse Ox 92 L 12/22/17 09:00 Intake & Output 12/21/17 12/22/17 12/22/17 18:59 06:59 18:59 Intake Total 340 60 0 Output Total 10 20 Balance 330 40 0 Weight 82.6 kg Intake: Oral 340 60 0 Output: Chest Tube Drainage 10 20 Chest Tube Left Lateral 10 20 Chest Other: Voiding Method Urinal Toilet Urinal # Voids 0 1 - Constitutional General appearance: Present: cooperative, no acute distress, obese - Respiratory Details: Lungs sounds diminished bilaterally, left greater than right. Respirations even , nonlabored. Currently on room air with oxygen saturation 92%. Left pleural chest tube present to waterseal, 20 mL serous drainage overnight, 35 mL in the last 24 hours, positive intermittent air leak present. - Cardiovascular Details: S1, S2 present. Regular rate and rhythm, sinus rhythm on telemetry. Palpable peripheral pulses bilaterally. No edema present. No calf pain or tenderness noted. SCDs present. - Gastrointestinal Gastrointestinal Comment(s): Abdomen soft, nontender, nondistended. Active bowel sounds present 4 quadrants. Tolerating diet. - Genitourinary Genitourinary Comment(s): Patient continues to void clear, yellow urine. - Integumentary Integumentary Comment(s): Skin is warm and dry with evidence of good perfusion. Left lateral wall incisions well approximated. - Neurologic Neurologic: Present: CNII-XII intact - Musculoskeletal Musculoskeletal: Present: gait normal, strength equal bilaterally - Psychiatric Psychiatric: Present: A&O x's 3, appropriate affect, intact judgment & insight - Allied health notes Allied health notes reviewed: nursing - Labs CBC & Chem 7: 12/22/17 06:20 12/22/17 06:20 Labs: Abnormal Lab Results - Last 24 Hours (Table) 12/22/17 Range/Units 06:20 Potassium 5.2 H (3.5-5.1) mmol/L BUN 25 H (9-20) mg/dL - Imaging and Cardiology Chest x-ray: report reviewed, image reviewed Assessment and Plan (1) Hypertension Current Visit: Yes Status: Chronic Code(s): I10 - ESSENTIAL (PRIMARY) HYPERTENSION SNOMED Code(s): 81268325 (2) History of CVA (cerebrovascular accident) Current Visit: No Status: Resolved Code(s): Z86.73 - PRSNL HX OF TIA (TIA), AND CEREB INFRC W/O RESID DEFICITS SNOMED Code(s): 430747085 (3) Tobacco dependence in remission Current Visit: No Status: Resolved Code(s): F17.201 - NICOTINE DEPENDENCE, UNSPECIFIED, IN REMISSION SNOMED Code(s): 404704273 (4) Lung cancer Current Visit: Yes Status: Chronic Code(s): C34.90 - MALIGNANT NEOPLASM OF UNSP PART OF UNSP BRONCHUS OR LUNG SNOMED Code(s): 632147760 (5) Hyperlipidemia Current Visit: Yes Status: Chronic Code(s): E78.5 - HYPERLIPIDEMIA, UNSPECIFIED SNOMED Code(s): 58784110 (6) Mass of upper lobe of left lung Current Visit: Yes Status: Chronic Code(s): R91.8 - OTHER NONSPECIFIC ABNORMAL FINDING OF LUNG FIELD SNOMED Code(s): 814820288 (7) History of myocardial infarction Current Visit: No Status: Resolved Code(s): I25.2 - OLD MYOCARDIAL INFARCTION SNOMED Code(s): 508293987 (8) COPD (chronic obstructive pulmonary disease) Current Visit: Yes Status: Chronic Code(s): J44.9 - CHRONIC OBSTRUCTIVE PULMONARY DISEASE, UNSPECIFIED SNOMED Code(s): 12768213 Plan: 1. Continue left pleural chest tube to waterseal. Will continue to monitor for complete resolution of air leak. 2. Encourage incentive spirometry 10 times every hour while awake. 3. Bronchodilators per pulmonology. 4. GI/DVT prophylaxis. 5. Pain control with current medication regimen. 6. Increase activity, ambulate in hallway. 7. Will monitor daily labs and x-rays. 8. More recommendations to follow. Time with Patient: Greater than 30
--- NOTE | 2017-12-22 15:16 | P.PN ---
Subjective Progress Note Date: 12/22/17 This is a 67-year-old male patient with known history of left upper lobe mass, spiculated, highly suspicious for malignancy. PET scan was done and showed increased activity within the primary tumor with negative uptake within the mediastinal lymph nodes. The patient underwent navigational bronchoscopy and the findings was positive for squamous cell carcinoma. The patient was diagnosed having stage I squamous cell cancer and the patient was referred to surgical resection by Dr. Harpal Bey. The preop PFT showed an FEV1 of 2.36 L which is 72% of predicted. Diffusion capacity was 20.29 which is 65% of predicted. Today, the patient underwent a left upper lobe resection. The patient is currently being seen postop. He is calm and comfortable. No complaints. The left-sided chest tube is in place. No evidence of any air leak. No evidence of any residual pneumothorax. Some limited atelectatic changes in lung bases was seen. Otherwise he is hemodynamically stable. Pain is under good control. He is receiving tramadol 50 mg 4 times a day on a when necessary basis for pain in addition to Toradol. Hemodynamically stable. Afebrile. He is currently on 2 L of oxygen by nasal cannula with a pulse ox of 98%. On and I'm seeing this patient for a follow-up. The patient is sitting up on a chair. Chest tube still in place. The amount of output is 25 mL over the past shift and 65 mL since last night. Minimal amount of air leak present. Chest x-ray shows Expansion of the right lung. Chest tube is in a good location.. The patient using incentive spirometer. No magistral difficulties for now. No fever. No chills. No pain. No other complaints otherwise for now. Blood work is within normal limits On today's evaluation of 12/22/2017, the patient is still having some minor air leak through the chest tube. The chest x-ray from today shows no evidence of any pneumothorax. No significant fluid acute ablation in the pleural VAC. Patient himself has no specific complaints. He continues to use incentive spirometer. He has been sitting up on a chair. No other significant events over the past 24 hours. Objective - Vital Signs Vital signs: Vital Signs Temp 98.8 F 12/22/17 09:00 Pulse 82 12/22/17 09:00 Resp 16 12/22/17 09:00 BP 154/85 12/22/17 09:00 Pulse Ox 92 L 12/22/17 09:00 Intake & Output 12/21/17 12/22/17 12/22/17 18:59 06:59 18:59 Intake Total 340 60 0 Output Total 10 20 Balance 330 40 0 Weight 82.6 kg Intake: Oral 340 60 0 Output: Chest Tube Drainage 10 20 Chest Tube Left Lateral 10 20 Chest Other: Voiding Method Urinal Toilet Urinal # Voids 0 1 - Exam No acute distress, oriented 3. HEENT examination is grossly unremarkable. Mucous membranes are moist. No oral lesions. TMs and EACs are normal. Nasal mucosa is normal. Neck supple. Full range of motion. No adenopathy thyromegaly or neck vein distention. Cardiovascular examination reveals regular rhythm rate. S1-S2 normal. No S3 or S4. No discernible murmur noted. Lungs reveal a few scattered rhonchi. Breath sounds are diminished. Slight prolongation on forced maneuver. No wheezes or crackles. Surgical wound site over the left chest area is dry clean and intact. Chest tube is in place. Diminished breath on the left compared to the right. Abdomen soft bowel sounds are heard. No masses or tenderness. Extremities are intact. No cyanosis clubbing or edema. Skin is without rash or lesion. Neurologic examination is brief but nonfocal. 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 Patient is status post robotic-assisted thoracoscopic upper lobe resection with mediastinal lymph node dissection. 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 We'll keep the tube in place. We'll monitor the air leak. Continues incentive spirometer. Bronchodilators. Adequate pain control. Awaiting final path. We'll continue to follow.
[2017-12-22] MEDS: ATORVASTATIN 80 MG TAB PO SCH (19:59)
[2017-12-22] MEDS: hydrALAZINE HCL 20 MG/ML 1 ML VIAL IVP PRN (21:15)
[2017-12-23] MEDS: hydrALAZINE HCL 20 MG/ML 1 ML VIAL IVP PRN (05:35)
[2017-12-23] MEDS: KETOROLAC 30 MG/ML 1 ML VIAL IVP SCH ×3 (05:35→18:19)
--- NOTE | 2017-12-23 06:27 | XR ---
EXAMINATION TYPE: XR chest 2V DATE OF EXAM: 12/23/2017 HISTORY: post lobectomy. REFERENCE: Previous study dated 12/22/2017. FINDINGS: Patient's left pleural drain remains in place. There is no sizable pneumothorax. The lungs are clear. Pleural spaces are clear. The heart is not enlarged. IMPRESSION: NO ACTIVE INTRATHORACIC DISEASE.
[2017-12-23] MEDS: PANTOPRAZOLE 40 MG TABLET PO SCH (06:31)
[2017-12-23 06:41] LABS: HCT 44.3 % (39.0-53.0); HGB 14.9 gm/dL (13.0-17.5); MCH 30.8 pg (25.0-35.0); MCHC 33.6 g/dL (31.0-37.0); MCV 91.6 fL (80.0-100.0); Mean Platelet Volume 6.5; Platelet Count 275 k/uL (150-450); RBC 4.84 m/uL (4.30-5.90); RDW 12.8 % (11.5-15.5); WBC 9.2 k/uL (3.8-10.6)
[2017-12-23 06:59] LABS: Calcium 9.4 mg/dL (8.4-10.2); Potassium 4.2 mmol/L (3.5-5.1)
[2017-12-23] MEDS ORDERED: hydrALAZINE HCL 20 MG/ML 1 ML VIAL IVP PRN (07:07)
[2017-12-23] MEDS ORDERED: ACETAMINOPHEN TAB 325 MG TAB PO PRN ×2 (07:54)
[2017-12-23] MEDS ORDERED: SENNOSIDES-DOCUSATE SODIUM 1 EACH TAB PO PRN (08:22)
--- NOTE | 2017-12-23 08:24 | P.PN ---
Subjective Progress Note Date: 12/23/17 Principal diagnosis: Lung cancer left upper lobe, stage I squamous cell carcinoma. Previous medical history of hypertension, hyperlipidemia, myocardial infarction, stroke with near total loss of vision in the left eye, previous tobacco dependence, and COPD with a preoperative FEV1 72% of predicted. POD #3 left robotic-assisted thoracoscopic upper lobectomy with mediastinal lymph node dissection. Patient is currently sitting up in the bed in no acute distress. States pain is controlled on current medications. Denies shortness of breath. The patient is eating and ambulating. No new complaints. Air leak remains. Objective - Vital Signs Vital signs: Vital Signs Temp 99 F 12/22/17 20:00 Pulse 87 12/23/17 04:00 Resp 20 12/23/17 04:00 BP 174/100 12/23/17 04:00 Pulse Ox 95 12/23/17 04:00 Intake & Output 12/22/17 12/23/17 12/23/17 18:59 06:59 18:59 Intake Total 210 Output Total 50 610 Balance 160 -610 Weight 81.6 kg Intake: Oral 210 Output: Chest Tube Drainage 50 10 Chest Tube Left Lateral 50 10 Chest Urine 600 Straight 300 Other: Voiding Method Toilet Indwelling Catheter # Voids 1 2 - Constitutional General appearance: Present: cooperative, no acute distress, obese - Respiratory Details: Lungs sounds diminished bilaterally, left greater than right. Respirations even , nonlabored. Currently on room air with oxygen saturation 95%. Left pleural chest tube present to waterseal, no drainage overnight, 60 mL in the last 24 hours, positive intermittent air leak present. - Cardiovascular Details: S1, S2 present. Regular rate and rhythm, sinus rhythm on telemetry. Palpable peripheral pulses bilaterally. No edema present. No calf pain or tenderness noted. SCDs present. - Gastrointestinal Gastrointestinal Comment(s): Abdomen soft, nontender, nondistended. Active bowel sounds present 4 quadrants. Tolerating diet. - Genitourinary Genitourinary Comment(s): Patient continues to void clear, yellow urine. - Integumentary Integumentary Comment(s): Skin is warm and dry with evidence of good perfusion. Left lateral wall incisions well approximated. - Neurologic Neurologic: Present: CNII-XII intact - Musculoskeletal Musculoskeletal: Present: gait normal, strength equal bilaterally - Psychiatric Psychiatric: Present: A&O x's 3, appropriate affect, intact judgment & insight - Allied health notes Allied health notes reviewed: nursing - Labs CBC & Chem 7: 12/23/17 06:10 12/23/17 06:10 Labs: Abnormal Lab Results - Last 24 Hours (Table) 12/23/17 Range/Units 06:10 BUN 26 H (9-20) mg/dL - Imaging and Cardiology Chest x-ray: report reviewed, image reviewed Assessment and Plan (1) Hypertension Current Visit: Yes Status: Chronic Code(s): I10 - ESSENTIAL (PRIMARY) HYPERTENSION SNOMED Code(s): 60207261 (2) History of CVA (cerebrovascular accident) Current Visit: No Status: Resolved Code(s): Z86.73 - PRSNL HX OF TIA (TIA), AND CEREB INFRC W/O RESID DEFICITS SNOMED Code(s): 873883113 (3) Tobacco dependence in remission Current Visit: No Status: Resolved Code(s): F17.201 - NICOTINE DEPENDENCE, UNSPECIFIED, IN REMISSION SNOMED Code(s): 113325817 (4) Lung cancer Current Visit: Yes Status: Chronic Code(s): C34.90 - MALIGNANT NEOPLASM OF UNSP PART OF UNSP BRONCHUS OR LUNG SNOMED Code(s): 948052458 (5) Hyperlipidemia Current Visit: Yes Status: Chronic Code(s): E78.5 - HYPERLIPIDEMIA, UNSPECIFIED SNOMED Code(s): 02628733 (6) Mass of upper lobe of left lung Current Visit: Yes Status: Chronic Code(s): R91.8 - OTHER NONSPECIFIC ABNORMAL FINDING OF LUNG FIELD SNOMED Code(s): 387943593 (7) History of myocardial infarction Current Visit: No Status: Resolved Code(s): I25.2 - OLD MYOCARDIAL INFARCTION SNOMED Code(s): 948177666 (8) COPD (chronic obstructive pulmonary disease) Current Visit: Yes Status: Chronic Code(s): J44.9 - CHRONIC OBSTRUCTIVE PULMONARY DISEASE, UNSPECIFIED SNOMED Code(s): 44149906 Plan: 1. Continue left pleural chest tube to waterseal. Will continue to monitor for complete resolution of air leak. 2. Encourage incentive spirometry 10 times every hour while awake. 3. Bronchodilators per pulmonology. 4. GI/DVT prophylaxis. 5. Pain control with current medication regimen. 6. Increase activity, ambulate in hallway. 7. Will monitor daily labs and x-rays. 8. More recommendations to follow. Time with Patient: Greater than 30
[2017-12-23] MEDS: IPRATROPIUM-ALBUTEROL 3 ML NEB IH SCH ×4 (08:28→19:47)
[2017-12-23] MEDS: traMADol 50 MG TAB PO SCH ×4 (09:40→20:47)
[2017-12-23] MEDS: LISINOPRIL 10 MG TAB PO SCH (09:41)
[2017-12-23] MEDS: METOPROLOL TARTRATE 25 MG TAB PO SCH ×2 (09:41→20:48)
[2017-12-23] MEDS: BRIMONIDINE TARTRATE 0.2% DROPS 5 ML BTL BOTH EYES SCH ×3 (09:41→20:48)
[2017-12-23] MEDS: CLOPIDOGREL 75 MG TAB PO SCH (09:41)
[2017-12-23] MEDS: ASPIRIN 325 MG TAB PO SCH (09:41)
[2017-12-23] MEDS: HEPARIN SODIUM,PORCINE 5,000 UNIT/ML 1 ML VIAL SQ SCH ×2 (09:41→18:19)
--- NOTE | 2017-12-23 14:50 | P.PN ---
Subjective Progress Note Date: 12/23/17 This is a 67-year-old male patient with known history of left upper lobe mass, spiculated, highly suspicious for malignancy. PET scan was done and showed increased activity within the primary tumor with negative uptake within the mediastinal lymph nodes. The patient underwent navigational bronchoscopy and the findings was positive for squamous cell carcinoma. The patient was diagnosed having stage I squamous cell cancer and the patient was referred to surgical resection by Dr. Harpal Bey. The preop PFT showed an FEV1 of 2.36 L which is 72% of predicted. Diffusion capacity was 20.29 which is 65% of predicted. Today, the patient underwent a left upper lobe resection. The patient is currently being seen postop. He is calm and comfortable. No complaints. The left-sided chest tube is in place. No evidence of any air leak. No evidence of any residual pneumothorax. Some limited atelectatic changes in lung bases was seen. Otherwise he is hemodynamically stable. Pain is under good control. He is receiving tramadol 50 mg 4 times a day on a when necessary basis for pain in addition to Toradol. Hemodynamically stable. Afebrile. He is currently on 2 L of oxygen by nasal cannula with a pulse ox of 98%. On and I'm seeing this patient for a follow-up. The patient is sitting up on a chair. Chest tube still in place. The amount of output is 25 mL over the past shift and 65 mL since last night. Minimal amount of air leak present. Chest x-ray shows Expansion of the right lung. Chest tube is in a good location.. The patient using incentive spirometer. No magistral difficulties for now. No fever. No chills. No pain. No other complaints otherwise for now. Blood work is within normal limits On today's evaluation of 12/22/2017, the patient is still having some minor air leak through the chest tube. The chest x-ray from today shows no evidence of any pneumothorax. No significant fluid acute ablation in the pleural VAC. Patient himself has no specific complaints. He continues to use incentive spirometer. He has been sitting up on a chair. No other significant events over the past 24 hours. On today's evaluation of 12/23/2017, the patient is postop day #4 following a left upper lobe resection and mediastinal lymph node dissection. The patient doing well. No magistral difficulties. No cough sputum production chest that is so wheezing. He remains hemodynamics is stable. He is on room air oxygen. Chest x-ray from today shows no evidence of any pneumothorax. The left lung is well expanded. The patient has no significant drainage overnight and overall drainage has been 60 mL over the past 24 hours. There is on and off positive intermittent air leak still present in the pleural VAC. He is currently on water seal. Objective - Vital Signs Vital signs: Vital Signs Temp 99 F 12/22/17 20:00 Pulse 100 12/23/17 11:37 Resp 20 12/23/17 04:00 BP 174/100 12/23/17 04:00 Pulse Ox 95 12/23/17 08:30 Intake & Output 12/22/17 12/23/17 12/23/17 18:59 06:59 18:59 Intake Total 210 Output Total 50 610 Balance 160 -610 Weight 81.6 kg Intake: Oral 210 Output: Chest Tube Drainage 50 10 Chest Tube Left Lateral 50 10 Chest Urine 600 Straight 300 Other: Voiding Method Toilet Indwelling Catheter # Voids 1 2 - Exam No acute distress, oriented 3. HEENT examination is grossly unremarkable. Mucous membranes are moist. No oral lesions. TMs and EACs are normal. Nasal mucosa is normal. Neck supple. Full range of motion. No adenopathy thyromegaly or neck vein distention. Cardiovascular examination reveals regular rhythm rate. S1-S2 normal. No S3 or S4. No discernible murmur noted. Lungs reveal a few scattered rhonchi. Breath sounds are diminished. Slight prolongation on forced maneuver. No wheezes or crackles. Surgical wound site over the left chest area is dry clean and intact. Chest tube is in place. Diminished breath on the left compared to the right. There is intermittent air leak seen in the pleural VAC. Abdomen soft bowel sounds are heard. No masses or tenderness. Extremities are intact. No cyanosis clubbing or edema. Skin is without rash or lesion. Neurologic examination is brief but nonfocal. 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 Patient is status post robotic-assisted thoracoscopic upper lobe resection with mediastinal lymph node dissection. Patient is postop day #3. Awaiting final pathology. The patient continues to have a small amount of air leak on the Pleur-evac. Chest x-ray showed no evidence of any pneumothorax. 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 We'll keep the chest tube in place for another 24 hours. Continue using incentive spirometer. Monitor the air leak. Repeat chest x-ray in the morning. Ambulate in the hallway. We'll continue to follow. Overall condition remains stable.
[2017-12-23] MEDS: ATORVASTATIN 80 MG TAB PO SCH (20:47)
[2017-12-24] MEDS: KETOROLAC 30 MG/ML 1 ML VIAL IVP SCH ×2 (00:01→06:28)
[2017-12-24] MEDS: HEPARIN SODIUM,PORCINE 5,000 UNIT/ML 1 ML VIAL SQ SCH ×3 (00:01→15:52)
[2017-12-24] MEDS: PANTOPRAZOLE 40 MG TABLET PO SCH (06:28)
--- NOTE | 2017-12-24 07:32 | XR ---
EXAMINATION TYPE: XR chest 2V DATE OF EXAM: 12/24/2017 COMPARISON: 12/23/2017 HISTORY: Status post lobectomy TECHNIQUE: Frontal and lateral views of the chest are obtained. FINDINGS: Left-sided chest tube is again noted be in place with its tip within the left apical region. There is a less than 10% left-sided pneumothorax. Mild strandy density at the left lung base persists. No evidence for infiltrate. No evidence for atelectasis. Heart size is stable. Mediastinal structures are stable and grossly unremarkable. No evidence for hilar prominence. Degenerative changes dorsal spine. IMPRESSION: 1. Stable chest.
[2017-12-24] MEDS: LISINOPRIL 10 MG TAB PO SCH (07:43)
[2017-12-24] MEDS: ASPIRIN 325 MG TAB PO SCH (07:43)
[2017-12-24] MEDS: METOPROLOL TARTRATE 25 MG TAB PO SCH ×2 (07:43→21:00)
[2017-12-24] MEDS: BRIMONIDINE TARTRATE 0.2% DROPS 5 ML BTL BOTH EYES SCH ×3 (07:44→21:01)
[2017-12-24] MEDS: traMADol 50 MG TAB PO SCH ×4 (07:44→20:59)
[2017-12-24] MEDS: CLOPIDOGREL 75 MG TAB PO SCH (07:44)
[2017-12-24] MEDS: IPRATROPIUM-ALBUTEROL 3 ML NEB IH SCH ×4 (07:53→19:59)
--- NOTE | 2017-12-24 10:37 | P.PN ---
Subjective Progress Note Date: 12/24/17 Principal diagnosis: Lung cancer left upper lobe, stage I squamous cell carcinoma. Previous medical history of hypertension, hyperlipidemia, myocardial infarction, stroke with near total loss of vision in the left eye, previous tobacco dependence, and COPD with a preoperative FEV1 72% of predicted. POD #4 left robotic-assisted thoracoscopic upper lobectomy with mediastinal lymph node dissection. Patient is currently sitting up in the bed in no acute distress. States pain is controlled on current medications. Denies shortness of breath. The patient is eating and ambulating. No new complaints. Intermittent air leak remains. Objective - Vital Signs Vital signs: Vital Signs Temp 98.2 F 12/24/17 08:00 Pulse 80 12/24/17 08:04 Resp 18 12/24/17 08:00 BP 157/94 12/24/17 08:00 Pulse Ox 94 L 12/24/17 08:00 Intake & Output 12/23/17 12/24/17 12/24/17 18:59 06:59 18:59 Intake Total 340 Output Total 10 Balance 330 Weight 81.2 kg Intake: Oral 340 Output: Drainage 10 Left Chest 10 Other: Voiding Method Toilet Toilet # Voids 1 - Constitutional General appearance: Present: cooperative, no acute distress - Respiratory Details: Lungs sounds diminished bilaterally. Respirations even, nonlabored. Currently on room air with oxygen saturation 94%. Left pleural chest tube present to waterseal, no drainage overnight, 10 mL in the last 24 hours, positive intermittent air leak present, mostly with expiration and coughing. - Cardiovascular Details: S1, S2 present. Regular rate and rhythm, sinus rhythm on telemetry. Palpable peripheral pulses bilaterally. No edema present. No calf pain or tenderness noted. SCDs present. - Gastrointestinal Gastrointestinal Comment(s): Abdomen soft, nontender, nondistended. Active bowel sounds present 4 quadrants. Tolerating diet. Positive bowel movement 12/23. - Genitourinary Genitourinary Comment(s): Patient continues to void clear, yellow urine. - Integumentary Integumentary Comment(s): Skin is warm and dry with evidence of good perfusion. Left lateral wall incisions well approximated. - Neurologic Neurologic: Present: CNII-XII intact - Musculoskeletal Musculoskeletal: Present: gait normal, strength equal bilaterally - Psychiatric Psychiatric: Present: A&O x's 3, appropriate affect, intact judgment & insight - Allied health notes Allied health notes reviewed: nursing - Labs CBC & Chem 7: 12/23/17 06:10 12/23/17 06:10 - Imaging and Cardiology Chest x-ray: report reviewed, image reviewed Assessment and Plan (1) Hypertension Current Visit: Yes Status: Chronic Code(s): I10 - ESSENTIAL (PRIMARY) HYPERTENSION SNOMED Code(s): 73349035 (2) History of CVA (cerebrovascular accident) Current Visit: No Status: Resolved Code(s): Z86.73 - PRSNL HX OF TIA (TIA), AND CEREB INFRC W/O RESID DEFICITS SNOMED Code(s): 460868868 (3) Tobacco dependence in remission Current Visit: No Status: Resolved Code(s): F17.201 - NICOTINE DEPENDENCE, UNSPECIFIED, IN REMISSION SNOMED Code(s): 407988708 (4) Lung cancer Current Visit: Yes Status: Chronic Code(s): C34.90 - MALIGNANT NEOPLASM OF UNSP PART OF UNSP BRONCHUS OR LUNG SNOMED Code(s): 823177499 (5) Hyperlipidemia Current Visit: Yes Status: Chronic Code(s): E78.5 - HYPERLIPIDEMIA, UNSPECIFIED SNOMED Code(s): 27660243 (6) Mass of upper lobe of left lung Current Visit: Yes Status: Chronic Code(s): R91.8 - OTHER NONSPECIFIC ABNORMAL FINDING OF LUNG FIELD SNOMED Code(s): 347567126 (7) History of myocardial infarction Current Visit: No Status: Resolved Code(s): I25.2 - OLD MYOCARDIAL INFARCTION SNOMED Code(s): 974347178 (8) COPD (chronic obstructive pulmonary disease) Current Visit: Yes Status: Chronic Code(s): J44.9 - CHRONIC OBSTRUCTIVE PULMONARY DISEASE, UNSPECIFIED SNOMED Code(s): 69760021 Plan: 1. Continue left pleural chest tube to waterseal. Will continue to monitor for complete resolution of air leak. 2. Encourage incentive spirometry 10 times every hour while awake. 3. Bronchodilators per pulmonology. 4. GI/DVT prophylaxis. 5. Pain control with current medication regimen. 6. Increase activity, ambulate in hallway. 7. Will monitor daily labs and x-rays. 8. More recommendations to follow. Time with Patient: Greater than 30
--- NOTE | 2017-12-24 10:55 | P.PN ---
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 PET scan was done and showed increased activity within the primary tumor with negative uptake within the mediastinal lymph nodes. The patient underwent navigational bronchoscopy and the findings was positive for squamous cell carcinoma. The patient was diagnosed having stage I squamous cell cancer and the patient was referred to surgical resection by Dr. Harpal Bey. The preop PFT showed an FEV1 of 2.36 L which is 72% of predicted. Diffusion capacity was 20.29 which is 65% of predicted. Today, the patient underwent a left upper lobe resection. The patient is currently being seen postop. He is calm and comfortable. No complaints. The left-sided chest tube is in place. No evidence of any air leak. No evidence of any residual pneumothorax. Some limited atelectatic changes in lung bases was seen. Otherwise he is hemodynamically stable. Pain is under good control. He is receiving tramadol 50 mg 4 times a day on a when necessary basis for pain in addition to Toradol. Hemodynamically stable. Afebrile. He is currently on 2 L of oxygen by nasal cannula with a pulse ox of 98%. On and I'm seeing this patient for a follow-up. The patient is sitting up on a chair. Chest tube still in place. The amount of output is 25 mL over the past shift and 65 mL since last night. Minimal amount of air leak present. Chest x-ray shows Expansion of the right lung. Chest tube is in a good location.. The patient using incentive spirometer. No magistral difficulties for now. No fever. No chills. No pain. No other complaints otherwise for now. Blood work is within normal limits On today's evaluation of 12/22/2017, the patient is still having some minor air leak through the chest tube. The chest x-ray from today shows no evidence of any pneumothorax. No significant fluid acute ablation in the pleural VAC. Patient himself has no specific complaints. He continues to use incentive spirometer. He has been sitting up on a chair. No other significant events over the past 24 hours. On today's evaluation of 12/23/2017, the patient is postop day #4 following a left upper lobe resection and mediastinal lymph node dissection. The patient doing well. No magistral difficulties. No cough sputum production chest that is so wheezing. He remains hemodynamics is stable. He is on room air oxygen. Chest x-ray from today shows no evidence of any pneumothorax. The left lung is well expanded. The patient has no significant drainage overnight and overall drainage has been 60 mL over the past 24 hours. There is on and off positive intermittent air leak still present in the pleural VAC. He is currently on water seal. On 12/24/2017 patient seen in follow-up. He is calm and comfortable, currently on room air, with pulse ox of 94%, afebrile, hemodynamically stable. Still has the left-sided chest tube in place which is currently to waterseal, no air leak noted. His pain is reasonably controlled, lung sounds are positive for a few crackles at the bases, no rhonchi or wheezes noted. Incentive spirometry effort is [id number] today. Patient has been ambulating, tolerating activity well. Today's chest x-ray showed stable chest, with left-sided chest tube in place within the left apical region and there is a less than 10% left-sided pneumothorax. No evidence for infiltrate, no evidence for atelectasis. Today' s labs have been noted, CBC was within normal limits, electrolytes and renal profile were unremarkable. Objective - Vital Signs Vital signs: Vital Signs Temp 98.2 F 12/24/17 08:00 Pulse 80 12/24/17 08:04 Resp 18 12/24/17 08:00 BP 157/94 12/24/17 08:00 Pulse Ox 94 L 12/24/17 08:00 Intake & Output 12/23/17 12/24/17 12/24/17 18:59 06:59 18:59 Intake Total 340 Output Total 10 Balance 330 Weight 81.2 kg Intake: Oral 340 Output: Drainage 10 Left Chest 10 Other: Voiding Method Toilet Toilet # Voids 1 - Exam No acute distress, oriented 3. HEENT examination is grossly unremarkable. Mucous membranes are moist. No oral lesions. TMs and EACs are normal. Nasal mucosa is normal. Neck supple. Full range of motion. No adenopathy thyromegaly or neck vein distention. Cardiovascular examination reveals regular rhythm rate. S1-S2 normal. No S3 or S4. No discernible murmur noted. Lungs reveal a few scattered rhonchi. Breath sounds are diminished. A few crackles at the bases. Surgical wound site over the left chest area is dry clean and intact. Chest tube is in place. Diminished breath on the left compared to the right. There is intermittent air leak seen in the pleural VAC. Abdomen soft bowel sounds are heard. No masses or tenderness. Extremities are intact. No cyanosis clubbing or edema. Skin is without rash or lesion. - Labs CBC & Chem 7: 12/23/17 06:10 12/23/17 06:10 Assessment and Plan Plan: 1 stage I, non-small cell lung cancer of a squamous cell type. Patient is status post robotic-assisted thoracoscopic upper lobe resection with mediastinal lymph node dissection. Patient is postop day #3. Awaiting final pathology. The patient continues to have a small amount of air leak on the Pleur-evac. 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 It is currently to waterseal. Continue deep breathing and coughing, ambulation. Pain control. Biopsies pending. Continue to follow I performed a history & physical examination of the patient and discussed their management with my nurse practitioner, Beverly Marion. I reviewed the nurse practitioner's note and agree with the documented findings and plan of care. Lung sounds are diminished, with bibasilar crackles. The findings and the impression was discussed with the patient. I attest to the documentation by the nurse practitioner. Time with Patient: Less than 30
[2017-12-24] MEDS: ATORVASTATIN 80 MG TAB PO SCH (21:00)
[2017-12-25] MEDS: HEPARIN SODIUM,PORCINE 5,000 UNIT/ML 1 ML VIAL SQ SCH ×4 (00:28→23:17)
[2017-12-25] MEDS: PANTOPRAZOLE 40 MG TABLET PO SCH (06:48)
[2017-12-25] MEDS: IPRATROPIUM-ALBUTEROL 3 ML NEB IH SCH ×4 (07:20→21:27)
[2017-12-25] MEDS: traMADol 50 MG TAB PO SCH ×4 (07:23→21:29)
[2017-12-25] MEDS: ASPIRIN 325 MG TAB PO SCH (07:23)
[2017-12-25] MEDS: METOPROLOL TARTRATE 25 MG TAB PO SCH ×2 (07:24→21:29)
[2017-12-25] MEDS: LISINOPRIL 10 MG TAB PO SCH (07:24)
[2017-12-25] MEDS: CLOPIDOGREL 75 MG TAB PO SCH (07:24)
[2017-12-25] MEDS: BRIMONIDINE TARTRATE 0.2% DROPS 5 ML BTL BOTH EYES SCH ×3 (07:24→22:19)
--- NOTE | 2017-12-25 08:02 | XR ---
EXAMINATION TYPE: XR chest 2V DATE OF EXAM: 12/25/2017 COMPARISON: 12/24/2017 HISTORY: Follow-up for pneumothorax and status post lobectomy. TECHNIQUE: Frontal and lateral views of the chest are obtained. FINDINGS: There is a similar appearing left apical pneumothorax with thoracostomy tube at the most c ranial aspect of the left lung apex. This pneumothorax has maximal apical pleural separation of 1.0 c m and apical lateral separation of 1.2 cm. Nodular density within the right midlung may relate to a nipple shadow as this was not seen on the CT chest dated 10/31/2017 or PET/CT dated 10/13/2017. Follow-up exam with placement of a nipple marker cou ld be performed. Cardia mediastinal silhouette is mildly enlarged and stable. Subcutaneous left lateral chest wall emp hysema is again noted. No focal consolidation or pleural effusion is seen. IMPRESSION: Similar-appearing small left apical pneumothorax with stable placement of the cephalad t horacostomy tube status post left lobectomy. Right lower lung nodular density could relate to a nippl e shadow and nipple marker could be placed on the subsequent film for confirmation.
--- NOTE | 2017-12-25 08:27 | P.PN ---
Subjective Progress Note Date: 12/25/17 Principal diagnosis: Lung cancer left upper lobe, stage I squamous cell carcinoma. Previous medical history of hypertension, hyperlipidemia, myocardial infarction, stroke with near total loss of vision in the left eye, previous tobacco dependence, and COPD with a preoperative FEV1 72% of predicted. POD #5 left robotic-assisted thoracoscopic upper lobectomy with mediastinal lymph node dissection. Patient is currently sitting up in the bed in no acute distress. States pain is controlled on current medications. Denies shortness of breath. The patient has been ambulating around the hallway. No new complaints. Chest tube continues to waterseal, expiratory air leak still present. Objective - Vital Signs Vital signs: Vital Signs Temp 98.5 F 12/25/17 07:34 Pulse 77 12/25/17 07:34 Resp 18 12/25/17 07:34 BP 169/95 12/25/17 07:34 Pulse Ox 96 12/25/17 07:34 Intake & Output 12/24/17 12/25/17 12/25/17 18:59 06:59 18:59 Intake Total 240 Output Total 120 Balance 240 -120 Weight 79.6 kg Intake: Oral 240 Output: Chest Tube Drainage 120 Chest Tube Left Lateral 120 Chest Other: Voiding Method Toilet # Voids 2 - Constitutional General appearance: Present: cooperative, no acute distress - Respiratory Details: Lungs sounds diminished bilaterally. Respirations even, nonlabored. Currently on room air with oxygen saturation 94%. Left pleural chest tube present to waterseal, 20 mL serous drainage overnight, 120 mL in the last 24 hours, positive air leak present with expiration and coughing. - Cardiovascular Details: S1, S2 present. Regular rate and rhythm, sinus rhythm on telemetry. Palpable peripheral pulses bilaterally. No edema present. No calf pain or tenderness noted. SCDs present. - Gastrointestinal Gastrointestinal Comment(s): Abdomen soft, nontender, nondistended. Active bowel sounds present 4 quadrants. Tolerating diet. Positive bowel movement 12/23. - Genitourinary Genitourinary Comment(s): Patient continues to void clear, yellow urine. - Integumentary Integumentary Comment(s): Skin is warm and dry with evidence of good perfusion. Left lateral wall incisions well approximated. - Neurologic Neurologic: Present: CNII-XII intact - Musculoskeletal Musculoskeletal: Present: gait normal, strength equal bilaterally - Psychiatric Psychiatric: Present: A&O x's 3, appropriate affect, intact judgment & insight - Allied health notes Allied health notes reviewed: nursing - Labs CBC & Chem 7: 12/23/17 06:10 12/23/17 06:10 - Imaging and Cardiology Chest x-ray: report reviewed, image reviewed Assessment and Plan (1) Hypertension Current Visit: Yes Status: Chronic Code(s): I10 - ESSENTIAL (PRIMARY) HYPERTENSION SNOMED Code(s): 23363623 (2) History of CVA (cerebrovascular accident) Current Visit: No Status: Resolved Code(s): Z86.73 - PRSNL HX OF TIA (TIA), AND CEREB INFRC W/O RESID DEFICITS SNOMED Code(s): 606106826 (3) Tobacco dependence in remission Current Visit: No Status: Resolved Code(s): F17.201 - NICOTINE DEPENDENCE, UNSPECIFIED, IN REMISSION SNOMED Code(s): 057616563 (4) Lung cancer Current Visit: Yes Status: Chronic Code(s): C34.90 - MALIGNANT NEOPLASM OF UNSP PART OF UNSP BRONCHUS OR LUNG SNOMED Code(s): 028618860 (5) Hyperlipidemia Current Visit: Yes Status: Chronic Code(s): E78.5 - HYPERLIPIDEMIA, UNSPECIFIED SNOMED Code(s): 00907193 (6) Mass of upper lobe of left lung Current Visit: Yes Status: Chronic Code(s): R91.8 - OTHER NONSPECIFIC ABNORMAL FINDING OF LUNG FIELD SNOMED Code(s): 167786781 (7) History of myocardial infarction Current Visit: No Status: Resolved Code(s): I25.2 - OLD MYOCARDIAL INFARCTION SNOMED Code(s): 933541350 (8) COPD (chronic obstructive pulmonary disease) Current Visit: Yes Status: Chronic Code(s): J44.9 - CHRONIC OBSTRUCTIVE PULMONARY DISEASE, UNSPECIFIED SNOMED Code(s): 67137855 Plan: 1. Continue left pleural chest tube to waterseal. Will continue to monitor for complete resolution of air leak. We may consider using a Pneumostat device to be able to send the patient home. 2. Encourage incentive spirometry 10 times every hour while awake. 3. Bronchodilators per pulmonology. 4. GI/DVT prophylaxis. 5. Pain control with current medication regimen. 6. Increase activity, ambulate in hallway. 7. Will monitor daily labs and x-rays. 8. More recommendations to follow. Time with Patient: Greater than 30
--- NOTE | 2017-12-25 10:17 | P.PN ---
Subjective Progress Note Date: 12/25/17 Principal diagnosis: Stage IV non-small cell lung cancer with squamous cell type status post robotic- assisted left upper lobe resection. This is a 67-year-old male patient with known history of left upper lobe mass, spiculated, highly suspicious for malignancy. PET scan was done and showed increased activity within the primary tumor with negative uptake within the mediastinal lymph nodes. The patient underwent navigational bronchoscopy and the findings was positive for squamous cell carcinoma. The patient was diagnosed having stage I squamous cell cancer and the patient was referred to surgical resection by Dr. Harpal Bey. The preop PFT showed an FEV1 of 2.36 L which is 72% of predicted. Diffusion capacity was 20.29 which is 65% of predicted. Today, the patient underwent a left upper lobe resection. The patient is currently being seen postop. He is calm and comfortable. No complaints. The left-sided chest tube is in place. No evidence of any air leak. No evidence of any residual pneumothorax. Some limited atelectatic changes in lung bases was seen. Otherwise he is hemodynamically stable. Pain is under good control. He is receiving tramadol 50 mg 4 times a day on a when necessary basis for pain in addition to Toradol. Hemodynamically stable. Afebrile. He is currently on 2 L of oxygen by nasal cannula with a pulse ox of 98%. On and I'm seeing this patient for a follow-up. The patient is sitting up on a chair. Chest tube still in place. The amount of output is 25 mL over the past shift and 65 mL since last night. Minimal amount of air leak present. Chest x-ray shows Expansion of the right lung. Chest tube is in a good location.. The patient using incentive spirometer. No magistral difficulties for now. No fever. No chills. No pain. No other complaints otherwise for now. Blood work is within normal limits On today's evaluation of 12/22/2017, the patient is still having some minor air leak through the chest tube. The chest x-ray from today shows no evidence of any pneumothorax. No significant fluid acute ablation in the pleural VAC. Patient himself has no specific complaints. He continues to use incentive spirometer. He has been sitting up on a chair. No other significant events over the past 24 hours. On today's evaluation of 12/23/2017, the patient is postop day #4 following a left upper lobe resection and mediastinal lymph node dissection. The patient doing well. No magistral difficulties. No cough sputum production chest that is so wheezing. He remains hemodynamics is stable. He is on room air oxygen. Chest x-ray from today shows no evidence of any pneumothorax. The left lung is well expanded. The patient has no significant drainage overnight and overall drainage has been 60 mL over the past 24 hours. There is on and off positive intermittent air leak still present in the pleural VAC. He is currently on water seal. On 12/24/2017 patient seen in follow-up. He is calm and comfortable, currently on room air, with pulse ox of 94%, afebrile, hemodynamically stable. Still has the left-sided chest tube in place which is currently to waterseal, no air leak noted. His pain is reasonably controlled, lung sounds are positive for a few crackles at the bases, no rhonchi or wheezes noted. Incentive spirometry effort is [id number] today. Patient has been ambulating, tolerating activity well. Today's chest x-ray showed stable chest, with left-sided chest tube in place within the left apical region and there is a less than 10% left-sided pneumothorax. No evidence for infiltrate, no evidence for atelectasis. Today' s labs have been noted, CBC was within normal limits, electrolytes and renal profile were unremarkable. The patient is seen again today 12/25/2017 in follow-up on the selective care unit. He is currently sitting up in a chair at the bedside. He is awake and alert in no acute distress. He's been up ambulating with assistance. Denies any worsening shortness of breath at this time. He is maintaining good O2 saturations in the 90s on room air. He's been afebrile. Hemodynamically stable. Pathology report was positive for invasive squamous cell carcinoma with one of 15 lymph nodes involved by metastatic squamous cell carcinoma level 6 lymph node. Chest x-ray shows small left apical pneumothorax. Chest tube remains in place, to waterseal. Expiratory leak present. Continues to work well with the incentive spirometer. Objective - Vital Signs Vital signs: Vital Signs Temp 98.5 F 12/25/17 07:34 Pulse 77 12/25/17 07:34 Resp 18 12/25/17 08:00 BP 169/95 12/25/17 07:34 Pulse Ox 96 12/25/17 07:34 Intake & Output 12/24/17 12/25/17 12/25/17 18:59 06:59 18:59 Intake Total 240 Output Total 120 20 Balance 240 -120 -20 Weight 79.6 kg Intake: Oral 240 Output: Chest Tube Drainage 120 20 Chest Tube Left Lateral 120 20 Chest Other: Voiding Method Toilet # Voids 2 - Exam No acute distress, oriented 3. On room air. HEENT examination is grossly unremarkable. Mucous membranes are moist. No oral lesions. TMs and EACs are normal. Nasal mucosa is normal. Neck supple. Full range of motion. No adenopathy thyromegaly or neck vein distention. Cardiovascular examination reveals regular rhythm rate. S1-S2 normal. No S3 or S4. No discernible murmur noted. Lungs reveal a few scattered rhonchi. Breath sounds are diminished. A few crackles at the bases. Surgical wound site over the left chest area is dry clean and intact. Chest tube is in place. Diminished breath on the left compared to the right. There is intermittent air leak seen in the pleural VAC. Abdomen soft bowel sounds are heard. No masses or tenderness. Extremities are intact. No cyanosis clubbing or edema. Skin is without rash or lesion. - Labs CBC & Chem 7: 12/23/17 06:10 12/23/17 06:10 Assessment and Plan Assessment: Impression: 1 stage I, non-small cell lung cancer of a squamous cell type. Patient is status post robotic-assisted thoracoscopic upper lobe resection with mediastinal lymph node dissection. Patient is postop day #5. Pathology is positive for moderately differentiated squamous cell carcinoma with extensive necrosis and fibrosis associated with lymphoid tissue. One of 15 lymph nodes is involved by metastatic squamous carcinoma at L6. The patient continues to have a small amount of air leak on the Pleur-evac. Chest x-ray showed 10% pneumothorax on the left, chest tube remains in place to waterseal. 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 Pham. Chest x-ray, labs and pathology report reviewed. Small apical pneumothorax on the left remains. Air leak is present. Chest tube remains. Cardiothoracic is following. We'll continue with his current medications. Increase his activity as tolerated. Continue to encourage increased use of the incentive spirometer and cough and deep breathing exercises. We'll continue to follow. I, the cosigning physician, performed a history & physical examination of the patient. Lungs sounds few scattered rhonchi more so on the left. Maintaining good O2 saturations in the 90s on room air. I discussed the assessment and plan of care with my nurse practitioner, Maria Elena Iglesias. I attest to the above note as dictated by her.
[2017-12-25] MEDS: ATORVASTATIN 80 MG TAB PO SCH (21:29)
[2017-12-26 06:34] LABS: HCT 41.9 % (39.0-53.0); HGB 13.9 gm/dL (13.0-17.5); MCH 31.4 pg (25.0-35.0); MCHC 33.1 g/dL (31.0-37.0); MCV 94.8 fL (80.0-100.0); Mean Platelet Volume 6.5; Platelet Count 311 k/uL (150-450); RBC 4.42 m/uL (4.30-5.90); RDW 13.1 % (11.5-15.5); WBC 9.1 k/uL (3.8-10.6)
[2017-12-26] MEDS: PANTOPRAZOLE 40 MG TABLET PO SCH (06:40)
[2017-12-26 06:49] LABS: Calcium 9.3 mg/dL (8.4-10.2); Potassium 4.3 mmol/L (3.5-5.1)
[2017-12-26] MEDS: IPRATROPIUM-ALBUTEROL 3 ML NEB IH SCH ×4 (07:37→20:01)
--- NOTE | 2017-12-26 07:46 | XR ---
EXAMINATION TYPE: XR chest 1V portable DATE OF EXAM: 12/26/2017 HISTORY: Shortness of breath. COMPARISON: None. TECHNIQUE: Single view of the chest is submitted. FINDINGS: Left-sided chest tube redemonstrated with small left apical pneumothorax measuring 5.2 mm versus 9.9 mm previously. No focal infiltrate or mediastinal shift. The heart is stable. Hilar and mediastinal structures are within normal limits. Degenerative changes are seen of the dorsal spine. IMPRESSION: 1. Persistent left apical pneumothorax which is smaller in size on today's study.
[2017-12-26] MEDS: ASPIRIN 325 MG TAB PO SCH (08:15)
[2017-12-26] MEDS: HEPARIN SODIUM,PORCINE 5,000 UNIT/ML 1 ML VIAL SQ SCH ×3 (08:15→23:55)
[2017-12-26] MEDS: CLOPIDOGREL 75 MG TAB PO SCH (08:15)
[2017-12-26] MEDS: LISINOPRIL 10 MG TAB PO SCH (08:15)
[2017-12-26] MEDS: METOPROLOL TARTRATE 25 MG TAB PO SCH ×2 (08:16→21:25)
[2017-12-26] MEDS: traMADol 50 MG TAB PO SCH ×4 (08:16→21:25)
[2017-12-26] MEDS: BRIMONIDINE TARTRATE 0.2% DROPS 5 ML BTL BOTH EYES SCH ×3 (09:04→21:25)
--- NOTE | 2017-12-26 10:35 | P.PN ---
Subjective Progress Note Date: 12/26/17 Principal diagnosis: Lung cancer left upper lobe, stage I squamous cell carcinoma. 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 POD #6 left robotic-assisted thoracoscopic upper lobectomy with mediastinal lymph node dissection. The patient is currently sitting up to the bedside chair. He is in no acute distress. Currently rates his pain 5 out of 10 on the pain scale to his left chest tube insertion site. Denies any complaints of shortness of breath. He reports that he has been ambulating in the 3 S hallway about 5 or 6 times yesterday. His left pleural chest tube remains to waterseal with air leak present. He is achieving 2000 and 2500 mL on its incentive spirometry. He remains on room air with oxygen saturations 94%. Objective - Vital Signs Vital signs: Vital Signs Temp 98.7 F 12/26/17 07:55 Pulse 104 H 12/26/17 08:00 Resp 16 12/26/17 08:00 BP 150/87 12/26/17 07:55 Pulse Ox 94 L 12/26/17 07:55 Intake & Output 12/25/17 12/26/17 12/26/17 18:59 06:59 18:59 Intake Total 840 20 240 Output Total 60 75 0 Balance 780 -55 240 Weight 78.3 kg Intake: IV 20 0.9 20 Oral 840 240 Output: Chest Tube Drainage 60 55 0 Chest Tube Left Lateral 60 55 0 Chest Urine 20 Other: Voiding Method Toilet - Constitutional General appearance: Present: cooperative, no acute distress - Respiratory Details: Lung sounds with few scattered rhonchi throughout, diminished to his bilateral bases left greater than right. Respirations are symmetrical and nonlabored. Oxygen saturation are 94% on room air. Left pleural chest tube remains in place to waterseal, positive air leak present with expiration and coughing. Draining thin serosanguineous drainage, 35 mL output in the last 24 hours. He is achieving 2000 and 2500 mL on his incentive spirometry with encouragement. - Cardiovascular Details: Regular rhythm and rate. S1 and S2 present, negative for S3, gallop or murmur. No edema is present. Knee-high sequential compression devices in place to his bilateral lower extremities. - Gastrointestinal Gastrointestinal Comment(s): Abdomen is soft, nontender and nondistended. Active bowel sounds to all 4 abdominal quadrants. Tolerating oral intake. No bowel movement since 2017. - Genitourinary Genitourinary Comment(s): Voiding clear yellow urine. - Integumentary Integumentary Comment(s): Skin is warm and dry. No clubbing or cyanosis present. Left lateral chest wall incisions clean dry and approximated. No drainage or redness present. Left chest tube insertion site with scant serosanguineous drainage. Dressing clean, dry and intact. - Neurologic Neurologic: Present: CNII-XII intact - Musculoskeletal Musculoskeletal: Present: gait normal, strength equal bilaterally - Psychiatric Psychiatric: Present: A&O x's 3, appropriate affect, intact judgment & insight - Allied health notes Allied health notes reviewed: nursing - Labs CBC & Chem 7: 12/26/17 05:37 12/26/17 05:37 Labs: Abnormal Lab Results - Last 24 Hours (Table) 12/26/17 Range/Units 05:37 Chloride 108 H (98-107) mmol/L BUN 30 H (9-20) mg/dL - Imaging and Cardiology Chest x-ray: report reviewed, image reviewed Assessment and Plan (1) COPD (chronic obstructive pulmonary disease) Current Visit: Yes Status: Chronic Code(s): J44.9 - CHRONIC OBSTRUCTIVE PULMONARY DISEASE, UNSPECIFIED SNOMED Code(s): 02484401 (2) Hyperlipidemia Current Visit: Yes Status: Chronic Code(s): E78.5 - HYPERLIPIDEMIA, UNSPECIFIED SNOMED Code(s): 19571361 (3) Hypertension Current Visit: Yes Status: Chronic Code(s): I10 - ESSENTIAL (PRIMARY) HYPERTENSION SNOMED Code(s): 07102774 (4) Lung cancer Current Visit: Yes Status: Chronic Code(s): C34.90 - MALIGNANT NEOPLASM OF UNSP PART OF UNSP BRONCHUS OR LUNG SNOMED Code(s): 600187295 (5) CVA (cerebral vascular accident) Current Visit: No Status: Acute Code(s): I63.9 - CEREBRAL INFARCTION, UNSPECIFIED SNOMED Code(s): 709864108 (6) Tobacco dependence Current Visit: No Status: Acute Code(s): F17.200 - NICOTINE DEPENDENCE, UNSPECIFIED, UNCOMPLICATED SNOMED Code(s): 33317454 (7) History of CVA (cerebrovascular accident) Current Visit: No Status: Resolved Code(s): Z86.73 - PRSNL HX OF TIA (TIA), AND CEREB INFRC W/O RESID DEFICITS SNOMED Code(s): 795970489 (8) History of myocardial infarction Current Visit: No Status: Resolved Code(s): I25.2 - OLD MYOCARDIAL INFARCTION SNOMED Code(s): 069158029 Plan: 1. Continue left pleural chest tube to waterseal. Will continue to monitor for complete resolution of air leak. We may consider using a Pneumostat device to be able to discharge patient home. 2. Encourage incentive spirometry 10 times every hour while awake. 3. Bronchodilators per pulmonology. 4. GI/DVT prophylaxis. 5. Pain control with current medication regimen. 6. Increase activity, encourage ambulation in the hallway. 7. Will monitor daily labs and x-rays. 8. Pathology results demonstrates infiltrating moderately differentiated squamous carcinoma with keratinization centrally involving and puckering the visceral pleura. One of 15 nodes is involved by metastatic squamous carcinoma, L6 lymph node. 9. More recommendations to follow based on patient's clinical course. Time with Patient: Greater than 30
--- NOTE | 2017-12-26 10:46 | P.PN ---
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 This is a 67-year-old male patient with known history of left upper lobe mass, spiculated, highly suspicious for malignancy. PET scan was done and showed increased activity within the primary tumor with negative uptake within the mediastinal lymph nodes. The patient underwent navigational bronchoscopy and the findings was positive for squamous cell carcinoma. The patient was diagnosed having stage I squamous cell cancer and the patient was referred to surgical resection by Dr. Harpal Bey. The preop PFT showed an FEV1 of 2.36 L which is 72% of predicted. Diffusion capacity was 20.29 which is 65% of predicted. Today, the patient underwent a left upper lobe resection. The patient is currently being seen postop. He is calm and comfortable. No complaints. The left-sided chest tube is in place. No evidence of any air leak. No evidence of any residual pneumothorax. Some limited atelectatic changes in lung bases was seen. Otherwise he is hemodynamically stable. Pain is under good control. He is receiving tramadol 50 mg 4 times a day on a when necessary basis for pain in addition to Toradol. Hemodynamically stable. Afebrile. He is currently on 2 L of oxygen by nasal cannula with a pulse ox of 98%. On and I'm seeing this patient for a follow-up. The patient is sitting up on a chair. Chest tube still in place. The amount of output is 25 mL over the past shift and 65 mL since last night. Minimal amount of air leak present. Chest x-ray shows Expansion of the right lung. Chest tube is in a good location.. The patient using incentive spirometer. No magistral difficulties for now. No fever. No chills. No pain. No other complaints otherwise for now. Blood work is within normal limits On today's evaluation of 12/22/2017, the patient is still having some minor air leak through the chest tube. The chest x-ray from today shows no evidence of any pneumothorax. No significant fluid acute ablation in the pleural VAC. Patient himself has no specific complaints. He continues to use incentive spirometer. He has been sitting up on a chair. No other significant events over the past 24 hours. On today's evaluation of 12/23/2017, the patient is postop day #4 following a left upper lobe resection and mediastinal lymph node dissection. The patient doing well. No magistral difficulties. No cough sputum production chest that is so wheezing. He remains hemodynamics is stable. He is on room air oxygen. Chest x-ray from today shows no evidence of any pneumothorax. The left lung is well expanded. The patient has no significant drainage overnight and overall drainage has been 60 mL over the past 24 hours. There is on and off positive intermittent air leak still present in the pleural VAC. He is currently on water seal. On 12/24/2017 patient seen in follow-up. He is calm and comfortable, currently on room air, with pulse ox of 94%, afebrile, hemodynamically stable. Still has the left-sided chest tube in place which is currently to waterseal, no air leak noted. His pain is reasonably controlled, lung sounds are positive for a few crackles at the bases, no rhonchi or wheezes noted. Incentive spirometry effort is [id number] today. Patient has been ambulating, tolerating activity well. Today's chest x-ray showed stable chest, with left-sided chest tube in place within the left apical region and there is a less than 10% left-sided pneumothorax. No evidence for infiltrate, no evidence for atelectasis. Today' s labs have been noted, CBC was within normal limits, electrolytes and renal profile were unremarkable. The patient is seen again today 12/25/2017 in follow-up on the selective care unit. He is currently sitting up in a chair at the bedside. He is awake and alert in no acute distress. He's been up ambulating with assistance. Denies any worsening shortness of breath at this time. He is maintaining good O2 saturations in the 90s on room air. He's been afebrile. Hemodynamically stable. Pathology report was positive for invasive squamous cell carcinoma with one of 15 lymph nodes involved by metastatic squamous cell carcinoma level 6 lymph node. Chest x-ray shows small left apical pneumothorax. Chest tube remains in place, to waterseal. Expiratory leak present. Continues to work well with the incentive spirometer. The patient is seen again today 12/26/2017 in follow-up on the selective care unit. He is currently resting quite comfortably in bed. Awake and alert in no acute distress. He denies any worsening shortness of breath, cough or congestion. He is maintaining good O2 saturations in the 90s on room air. Today's chest x-ray shows persistent left apical pneumothorax somewhat smaller today compared to yesterday. He does have a continued leak on exhalation. Objective - Vital Signs Vital signs: Vital Signs Temp 98.7 F 12/26/17 07:55 Pulse 104 H 12/26/17 08:00 Resp 16 12/26/17 08:00 BP 150/87 12/26/17 07:55 Pulse Ox 94 L 12/26/17 07:55 Intake & Output 12/25/17 12/26/17 12/26/17 18:59 06:59 18:59 Intake Total 840 20 240 Output Total 60 75 0 Balance 780 -55 240 Weight 78.3 kg Intake: IV 20 0.9 20 Oral 840 240 Output: Chest Tube Drainage 60 55 0 Chest Tube Left Lateral 60 55 0 Chest Urine 20 Other: Voiding Method Toilet - Exam No acute distress, oriented 3. On room air. HEENT examination is grossly unremarkable. Mucous membranes are moist. No oral lesions. TMs and EACs are normal. Nasal mucosa is normal. Neck supple. Full range of motion. No adenopathy thyromegaly or neck vein distention. Cardiovascular examination reveals regular rhythm rate. S1-S2 normal. No S3 or S4. No discernible murmur noted. Lungs reveal a few scattered rhonchi. Breath sounds are diminished. A few crackles at the bases. Surgical wound site over the left chest area is dry clean and intact. Chest tube is in place. Diminished breath on the left compared to the right. There is intermittent air leak seen in the pleural VAC. Abdomen soft bowel sounds are heard. No masses or tenderness. Extremities are intact. No cyanosis clubbing or edema. Skin is without rash or lesion. - Labs CBC & Chem 7: 12/26/17 05:37 12/26/17 05:37 Labs: Abnormal Lab Results - Last 24 Hours (Table) 12/26/17 Range/Units 05:37 Chloride 108 H (98-107) mmol/L BUN 30 H (9-20) mg/dL Assessment and Plan Assessment: Impression: 1 stage I, non-small cell lung cancer of a squamous cell type. Patient is status post robotic-assisted thoracoscopic upper lobe resection with mediastinal lymph node dissection. Patient is postop day #6. Pathology is positive for moderately differentiated squamous cell carcinoma with extensive necrosis and fibrosis associated with lymphoid tissue. One of 15 lymph nodes is positive for metastatic squamous carcinoma at L6. The patient continues to have a small amount of air leak on the Pleur-evac. Chest x-ray showed slight improvement in the pneumothorax on the left, chest tube remains in place. 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 Pham. Small apical pneumothorax on the left remains. Chest tube remains. Air leak is present. Cardiothoracic is following. He may be discharged with a chest tube in place. We'll continue with his current medications. Increase his activity as tolerated. Continue to encourage increased use of the incentive spirometer and cough and deep breathing exercises. We'll continue to follow. I, the cosigning physician, performed a history & physical examination of the patient. Lungs sounds few scattered rhonchi more so on the left. Maintaining good O2 saturations in the 90s on room air. I discussed the assessment and plan of care with my nurse practitioner, Maria Elena Iglesias. I attest to the above note as dictated by her.
[2017-12-26] MEDS: ATORVASTATIN 80 MG TAB PO SCH (21:24)
[2017-12-27] MEDS: PANTOPRAZOLE 40 MG TABLET PO SCH (06:41)
[2017-12-27 07:57] VITALS: TEMP 98.6
[2017-12-27] MEDS: IPRATROPIUM-ALBUTEROL 3 ML NEB IH SCH ×3 (08:00→16:14)
--- NOTE | 2017-12-27 08:12 | XR ---
EXAMINATION TYPE: XR chest 1V portable DATE OF EXAM: 12/27/2017 COMPARISON: Prior chest x-ray 12/26/2017 HISTORY: Status post lobectomy. TECHNIQUE: Single frontal view of the chest is obtained. FINDINGS: Left-sided chest tube remains in place. Relative lucency in the left hemithorax likely due to lobectomy change. No evident pneumothorax or pleural effusion. Subcutaneous emphysema is present. Right lung is clear and stable. Cardiac mediastinal silhouette, pulmonary vascularity and sandoval not s ignificantly changed. IMPRESSION: Stable postoperative findings. No sizable pneumothorax.
[2017-12-27] MEDS: METOPROLOL TARTRATE 25 MG TAB PO SCH (08:14)
[2017-12-27] MEDS: CLOPIDOGREL 75 MG TAB PO SCH (08:14)
[2017-12-27] MEDS: ASPIRIN 325 MG TAB PO SCH (08:14)
[2017-12-27] MEDS: HEPARIN SODIUM,PORCINE 5,000 UNIT/ML 1 ML VIAL SQ SCH (08:14)
[2017-12-27] MEDS: LISINOPRIL 10 MG TAB PO SCH (08:14)
[2017-12-27] MEDS: traMADol 50 MG TAB PO SCH ×2 (08:14→14:01)
[2017-12-27] MEDS: BRIMONIDINE TARTRATE 0.2% DROPS 5 ML BTL BOTH EYES SCH (09:24)
--- NOTE | 2017-12-27 09:47 | CDI ---
Last Revision, January 2017 Documentation Clarification Form Date: 12/27/2017 9:39:00 AM From: Christin Godinez RN Admit Date: 12/20/2017 5:47:00 AM Patient Name: Zhou Alvarado Visit Number: [id number] ATTENTION: The Clinical Documentation Specialists (CDI) and [facility] Coding Staff appreciate your assistance in clarifying documentation. Please respond to the clarification below the line at the bottom and electronically sign. The CDI & [facility] Coding staff will review the response and follow-up if needed. Please note: Queries are made part of the Legal Health Record. If you have any questions, please contact the author of this message via ITS. Harpal Cho MD, Can you please clarify the following documentation? CXR 12/20 :Status post left upper lobectomy with appropriately placed left thoracostomy tube with no residual pneumothorax. Pneumothorax is documented in the CXR 12/21. Patients Admitting Diagnosis: left upper lobe lung cancer Post-Operative Diagnosis:left upper lobe lung cancer Procedure performed: left robotic assisted thoracoscopic upper lobectomy with mediastinal lymph node dissection History/Risk Factors:stroke, HTN, [place] Clinical Indicators:. CXR 12/20: IMPRESSION: Status post left upper lobectomy with appropriately placed left thoracostomy tube with no residual pneumothorax. CXR 12/21: Tiny left apical pneumothorax persists. CXR 12/22: resolution of the pt. tiny left sided apical pneumothorax. PN 12/26: Today's chest x-ray showed stable chest, with left-sided chest tube in place within the left apical region and there is a less than 10% left -sided pneumothorax. CXR: 12/27 No evident pneumothorax or pleural effusion Treatment: Chest Tube, incentive spirometer Consults: Pulmonary In order to accurately reflect this patients severity of illness, please clarify if pneumothorax is: Ruled in Ruled out And if Pneumothorax is a complication of the surgical procedure? An expected post-procedural or post-surgical condition; Integral to the procedure; Inherent to the procedure; An unexpected post-procedural or post-surgical condition related to surgical care; Other, please specify Unable to determine postoperative pneumothorax is an unexpected but potential outcome of any thoracic surgery, inherent to the procedure MTDD
--- NOTE | 2017-12-27 10:55 | P.PN ---
Subjective Progress Note Date: 12/27/17 Principal diagnosis: Lung cancer left upper lobe, stage I squamous cell carcinoma. Previous medical history of hypertension, hyperlipidemia, myocardial infarction, stroke with near total loss of vision in the left eye, previous tobacco dependence, and COPD with a preoperative FEV1 72% of predicted. POD #7 left robotic-assisted thoracoscopic upper lobectomy with mediastinal lymph node dissection. Postoperative minimal pneumothorax, an unexpected but potential outcome inherent to the type of surgery. Patient is currently sitting up in the bed in no acute distress. States pain is controlled on current medications. Denies shortness of breath. The patient has been ambulating around the hallway. No new complaints. Chest tube continues to waterseal, expiratory air leak still present. Objective - Vital Signs Vital signs: Vital Signs Temp 98.6 F 12/27/17 07:56 Pulse 92 12/27/17 08:19 Resp 18 12/27/17 08:00 BP 149/90 12/27/17 07:56 Pulse Ox 92 L 12/27/17 07:56 Intake & Output 12/26/17 12/27/17 12/27/17 18:59 06:59 18:59 Intake Total 480 100 180 Output Total 0 0 120 Balance 480 100 60 Weight 77.6 kg Intake: Oral 480 100 180 Output: Chest Tube Drainage 0 0 120 Chest Tube Left Lateral 0 0 120 Chest Other: Voiding Method Toilet # Voids 1 1 - Constitutional General appearance: Present: cooperative, no acute distress - Respiratory Details: Lungs sounds diminished bilaterally. Respirations even, nonlabored. Currently on room air with oxygen saturation 93%. Left pleural chest tube present to waterseal, no drainage overnight, 30 mL serous drainage in the last 24 hours, positive air leak present with expiration and coughing. - Cardiovascular Details: S1, S2 present. Regular rate and rhythm, sinus rhythm on telemetry. Palpable peripheral pulses bilaterally. No edema present. No calf pain or tenderness noted. SCDs present. - Gastrointestinal Gastrointestinal Comment(s): Abdomen soft, nontender, nondistended. Active bowel sounds present 4 quadrants. Tolerating diet. Positive bowel movement 12/26. - Genitourinary Genitourinary Comment(s): Patient continues to void clear, yellow urine. - Integumentary Integumentary Comment(s): Skin is warm and dry with evidence of good perfusion. Left lateral wall incisions well approximated. - Neurologic Neurologic: Present: CNII-XII intact - Musculoskeletal Musculoskeletal: Present: gait normal, strength equal bilaterally - Psychiatric Psychiatric: Present: A&O x's 3, appropriate affect, intact judgment & insight - Allied health notes Allied health notes reviewed: nursing - Labs CBC & Chem 7: 12/26/17 05:37 12/26/17 05:37 - Imaging and Cardiology Chest x-ray: report reviewed, image reviewed Assessment and Plan (1) Hypertension Current Visit: Yes Status: Chronic Code(s): I10 - ESSENTIAL (PRIMARY) HYPERTENSION SNOMED Code(s): 66357454 (2) History of CVA (cerebrovascular accident) Current Visit: No Status: Resolved Code(s): Z86.73 - PRSNL HX OF TIA (TIA), AND CEREB INFRC W/O RESID DEFICITS SNOMED Code(s): 005061803 (3) Tobacco dependence in remission Current Visit: No Status: Resolved Code(s): F17.201 - NICOTINE DEPENDENCE, UNSPECIFIED, IN REMISSION SNOMED Code(s): 688760776 (4) Lung cancer Current Visit: Yes Status: Chronic Code(s): C34.90 - MALIGNANT NEOPLASM OF UNSP PART OF UNSP BRONCHUS OR LUNG SNOMED Code(s): 605748296 (5) Hyperlipidemia Current Visit: Yes Status: Chronic Code(s): E78.5 - HYPERLIPIDEMIA, UNSPECIFIED SNOMED Code(s): 35655748 (6) Mass of upper lobe of left lung Current Visit: Yes Status: Chronic Code(s): R91.8 - OTHER NONSPECIFIC ABNORMAL FINDING OF LUNG FIELD SNOMED Code(s): 311629319 (7) History of myocardial infarction Current Visit: No Status: Resolved Code(s): I25.2 - OLD MYOCARDIAL INFARCTION SNOMED Code(s): 766149399 (8) COPD (chronic obstructive pulmonary disease) Current Visit: Yes Status: Chronic Code(s): J44.9 - CHRONIC OBSTRUCTIVE PULMONARY DISEASE, UNSPECIFIED SNOMED Code(s): 41155185 Plan: 1. Continue left pleural chest tube to waterseal. Will continue to monitor for complete resolution of air leak. We will transition to a Pneumostat device to be able to send the patient home if the product is available. 2. Encourage incentive spirometry 10 times every hour while awake. 3. Bronchodilators per pulmonology. 4. GI/DVT prophylaxis. 5. Pain control with current medication regimen. 6. Increase activity, ambulate in hallway. 7. Will monitor x-rays. 8. Pathology demonstrates 3.3 x 2.5 x 2 cm infiltrating moderately differentiated squamous carcinoma with keratinization centrally involving and puckering the visceral pleura. One of 15 lymph nodes is involved with metastatic squamous carcinoma, L6 lymph node. 9. More recommendations to follow. Time with Patient: Greater than 30
[2017-12-27 11:32] VITALS: BP 118/80; RESP 16
--- NOTE | 2017-12-27 12:41 | P.PN ---
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 PET scan was done and showed increased activity within the primary tumor with negative uptake within the mediastinal lymph nodes. The patient underwent navigational bronchoscopy and the findings was positive for squamous cell carcinoma. The patient was diagnosed having stage I squamous cell cancer and the patient was referred to surgical resection by Dr. Harpal Bey. The preop PFT showed an FEV1 of 2.36 L which is 72% of predicted. Diffusion capacity was 20.29 which is 65% of predicted. Today, the patient underwent a left upper lobe resection. The patient is currently being seen postop. He is calm and comfortable. No complaints. The left-sided chest tube is in place. No evidence of any air leak. No evidence of any residual pneumothorax. Some limited atelectatic changes in lung bases was seen. Otherwise he is hemodynamically stable. Pain is under good control. He is receiving tramadol 50 mg 4 times a day on a when necessary basis for pain in addition to Toradol. Hemodynamically stable. Afebrile. He is currently on 2 L of oxygen by nasal cannula with a pulse ox of 98%. On and I'm seeing this patient for a follow-up. The patient is sitting up on a chair. Chest tube still in place. The amount of output is 25 mL over the past shift and 65 mL since last night. Minimal amount of air leak present. Chest x-ray shows Expansion of the right lung. Chest tube is in a good location.. The patient using incentive spirometer. No magistral difficulties for now. No fever. No chills. No pain. No other complaints otherwise for now. Blood work is within normal limits On today's evaluation of 12/22/2017, the patient is still having some minor air leak through the chest tube. The chest x-ray from today shows no evidence of any pneumothorax. No significant fluid acute ablation in the pleural VAC. Patient himself has no specific complaints. He continues to use incentive spirometer. He has been sitting up on a chair. No other significant events over the past 24 hours. On today's evaluation of 12/23/2017, the patient is postop day #4 following a left upper lobe resection and mediastinal lymph node dissection. The patient doing well. No magistral difficulties. No cough sputum production chest that is so wheezing. He remains hemodynamics is stable. He is on room air oxygen. Chest x-ray from today shows no evidence of any pneumothorax. The left lung is well expanded. The patient has no significant drainage overnight and overall drainage has been 60 mL over the past 24 hours. There is on and off positive intermittent air leak still present in the pleural VAC. He is currently on water seal. On 12/24/2017 patient seen in follow-up. He is calm and comfortable, currently on room air, with pulse ox of 94%, afebrile, hemodynamically stable. Still has the left-sided chest tube in place which is currently to waterseal, no air leak noted. His pain is reasonably controlled, lung sounds are positive for a few crackles at the bases, no rhonchi or wheezes noted. Incentive spirometry effort is [id number] today. Patient has been ambulating, tolerating activity well. Today's chest x-ray showed stable chest, with left-sided chest tube in place within the left apical region and there is a less than 10% left-sided pneumothorax. No evidence for infiltrate, no evidence for atelectasis. Today' s labs have been noted, CBC was within normal limits, electrolytes and renal profile were unremarkable. On 12/27/2017 patient seen in follow-up on selective care units. Patient has a left pleural chest tube to waterseal, however there is a persistent expiratory air leak present. Clinically patient is calm and comfortable, denies any shortness of breath, denies any discomfort, he is tolerating ambulation, no fever or chills, vital signs are stable. CT surgery is following, and the plan is for the chest tube to remain in place until the resolution of the air leak, at that time he will be transitioned to a pneumostat device. Room air pulse ox is 94%, minus signs are stable, respirations are even and nonlabored. Lung sounds positive for a few rhonchi. His incentive spirometry effort is 1752- 2000 ML today. Objective - Vital Signs Vital signs: Vital Signs Temp 98.6 F 12/27/17 07:56 Pulse 77 12/27/17 12:00 Resp 16 12/27/17 12:00 BP 118/80 12/27/17 11:27 Pulse Ox 94 L 12/27/17 11:27 Intake & Output 12/26/17 12/27/17 12/27/17 18:59 06:59 18:59 Intake Total 480 100 180 Output Total 0 0 120 Balance 480 100 60 Weight 77.6 kg Intake: Oral 480 100 180 Output: Chest Tube Drainage 0 0 120 Chest Tube Left Lateral 0 0 120 Chest Other: Voiding Method Toilet # Voids 1 1 1 - Exam No acute distress, oriented 3. HEENT examination is grossly unremarkable. Mucous membranes are moist. No oral lesions. TMs and EACs are normal. Nasal mucosa is normal. Neck supple. Full range of motion. No adenopathy thyromegaly or neck vein distention. Cardiovascular examination reveals regular rhythm rate. S1-S2 normal. No S3 or S4. No discernible murmur noted. Lungs reveal a few scattered rhonchi. Breath sounds are diminished. Surgical wound site over the left chest area is dry clean and intact. Chest tube is in place. Diminished breath on the left compared to the right. There is intermittent air leak seen in the pleural VAC. Abdomen soft bowel sounds are heard. No masses or tenderness. Extremities are intact. No cyanosis clubbing or edema. Skin is without rash or lesion. - Labs CBC & Chem 7: 12/26/17 05:37 12/26/17 05:37 Assessment and Plan Plan: 1 stage I, non-small cell lung cancer of a squamous cell type. Patient is status post robotic-assisted thoracoscopic upper lobe resection with mediastinal lymph node dissection. Patient is postop day #7. Pathology is positive for moderately differentiated squamous cell carcinoma with extensive necrosis and fibrosis associated with lymphoid tissue. One of 15 lymph nodes is positive for metastatic squamous carcinoma at L6. The patient continues to have a small amount of air leak on the Pleur-evac. 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 Patient has distant expiratory air leak in his chest tube. CT surgery is following. Chest tube is to remain in place until the resolution of the air leak. CT surgery is planned and on converting into a pneumostat device. Clinically patient remains stable, denies any worsening shortness of breath, tolerating ambulation. We'll continue to follow I performed a history & physical examination of the patient and discussed their management with my nurse practitioner, Beverly Marion. I reviewed the nurse practitioner's note and agree with the documented findings and plan of care. Lung sounds are diminished, with bibasilar crackles. The findings and the impression was discussed with the patient. I attest to the documentation by the nurse practitioner. Time with Patient: Less than 30
[2017-12-27 13:11] VITALS: PULSE 90
[2017-12-27 13:48] VITALS: BMI 25.2
--- NOTE | 2017-12-31 07:59 | CDI ---
Last Revision, January 2017 Documentation Clarification Form Date: 12/31/17 From: BHAVANA Austin Phone: If you have question, contact Neeta L[facility] [employer] Display Specialist at M-F 8:30 am to 6pm. Admit Date: 12/20/2017 5:47:00 AM Patient Name: Zhou Alvarado Visit Number: [id number] Discharge Date: 12/27/17 ATTENTION: The Clinical Documentation Specialists (CDI) and [facility] Coding Staff appreciate your assistance in clarifying documentation. Please respond to the clarification below the line at the bottom and electronically sign. The CDI & [facility] Coding staff will review the response and follow-up if needed. Please note: Queries are made part of the Legal Health Record. If you have any questions, please contact the author of this message via ITS. Harpal Brown MD Mr. Alvarado was seen on 12/20 for a DC lobectomy and mediastinal lymph node dissection. The final diagnosis of the pathology report states: Level 6 lymph node biopsy metastatic moderately differentiated squamous cell carcinoma In your professional opinion, do you agree with the pathology report specifying level 6 mediastinal lymph node as metastatic carcinoma? Yes No Other (please specify) Unable to determine MTDD
== END 2017-12-27 16:46 | disposition home or self-care (01) | DRG 164 ==
LOC: 2ORMAIN 05:47 → 3SCARD 11:17
PROVIDERS: ADMIT Thoracic Surgery (Cardiothoracic Vascular Surgery); ATTEND Thoracic Surgery (Cardiothoracic Vascular Surgery)
PROC: 07B74ZX Excision of Thorax Lymphatic, Percutaneous Endoscopic Approach, Diagnostic (ICD-10-PCS; principal; 2017-12-20 07:30)
PROC: 0BTG4ZZ Resection of Left Upper Lung Lobe, Percutaneous Endoscopic Approach (ICD-10-PCS; principal; 2017-12-20 07:30)
PROC: 8E0W4CZ Robotic Assisted Procedure of Trunk Region, Percutaneous Endoscopic Approach (ICD-10-PCS; principal; 2017-12-20 07:30)
DX: C34.12 Malignant neoplasm of upper lobe, left bronchus or lung (principal); C77.1 Secondary and unspecified malignant neoplasm of intrathoracic lymph nodes; J95.811 Postprocedural pneumothorax; I10 Essential (primary) hypertension; I25.5 Ischemic cardiomyopathy; E78.5 Hyperlipidemia, unspecified; I25.10 Atherosclerotic heart disease of native coronary artery without angina pectoris; J44.9 Chronic obstructive pulmonary disease, unspecified; F17.211 Nicotine dependence, cigarettes, in remission; H54.62 Unqualified visual loss, left eye, normal vision right eye; I69.398 Other sequelae of cerebral infarction; I25.2 Old myocardial infarction; Z79.02 Long term (current) use of antithrombotics/antiplatelets; Z79.899 Other long term (current) drug therapy; Z79.82 Long term (current) use of aspirin; Z82.49 Family history of ischemic heart disease and other diseases of the circulatory system
CPT/HCPCS: 71045; 71046; 80048; 85025; 85027; 86850; 86900; 86901; 88305; 88309; 94640; 94760

== ENCOUNTER 2017-12-28 09:35 | Emergency (ER) | payer MEDICARE ==
[2017-12-28] MEDS ORDERED: IPRATROPIUM-ALBUTEROL 3 ML NEB INHALATION STA (10:28)
--- NOTE | 2017-12-28 10:44 | ED ---
SOB HPI - General Chief Complaint: Shortness of Breath Stated Complaint: post lung surgery/SOB Time Seen by Provider: 12/28/17 09:47 Source: patient, RN notes reviewed, old records reviewed Mode of arrival: wheelchair Limitations: no limitations - History of Present Illness Initial Comments: This is a 67-year-old male the ER for evaluation. Today patient presents for evaluation regards to cough congestion shortness of breath. Patient is recent hospital admission with left lung thoracentesis and drainage. Patient also has COPD and smokes. Patient does admit to smoking and states the smoking exacerbated his condition is chest pain denies shortness of breath currently improved with oxygenation, patient is not on home O2 MD Complaint: shortness of breath, cough -: hour(s) Severity: moderate Severity scale (1-10): 3 Consistency: constant Improves With: oxygen, bronchodilators Worsens With: movement - Related Data Home Medications Medication Instructions Recorded Confirmed Ibuprofen [Motrin Ib] 400 mg PO Q6H PRN 08/27/17 12/28/17 Metoprolol Succinate [Toprol XL] 25 mg PO DAILY 12/17/17 12/28/17 Brimonidine Tartrate [Alphagan P 1 drops BOTH EYES Q8H 12/20/17 12/28/17 0.1% Ophth Soln] Previous Rx's Medication Instructions Recorded Lisinopril [Zestril] 10 mg PO DAILY #15 tab 08/27/17 Aspirin 325 mg PO DAILY #30 tab 09/22/17 Atorvastatin [Lipitor] 80 mg PO HS #30 tab 09/22/17 Clopidogrel [Plavix] 75 mg PO DAILY #30 tab 09/22/17 Acetaminophen Tab [Tylenol] 325 - 650 mg PO Q4HR PRN tab 12/27/17 Allergies Allergy/AdvReac Type Severity Reaction Status Date / Time No Known Allergies Allergy Verified 12/28/17 09:56 Review of Systems ROS Statement: Those systems with pertinent positive or pertinent negative responses have been documented in the HPI. ROS Other: All systems not noted in ROS Statement are negative. Past Medical History Past Medical History: Cancer, CVA/TIA, Hyperlipidemia, Hypertension, Myocardial Infarction ([place]) Additional Past Medical History / Comment(s): Non-small cell lung cancer of a squamous cell type stage I, coronary artery disease with previous [place] in 1998, history of CVA with some residual visual deficits involving the left eye occurring in August 2017, hypertension, hyperlipidemia Last Myocardial Infarction Date:: 1998 History of Any Multi-Drug Resistant Organisms: None Reported Past Surgical History: Back Surgery, Heart Catheterization Past Anesthesia/Blood Transfusion Reactions: No Reported Reaction Past Psychological History: No Psychological Hx Reported Smoking Status: Former smoker Past Alcohol Use History: None Reported Past Drug Use History: None Reported - Past Family History Mother Family Medical History: No Reported History Father Additional Family Medical History / Comment(s): alcoholism General Exam Limitations: no limitations General appearance: alert, in no apparent distress Head exam: Present: atraumatic, normocephalic, normal inspection Eye exam: Present: normal appearance, PERRL, EOMI. Absent: scleral icterus, conjunctival injection, periorbital swelling ENT exam: Present: normal exam, mucous membranes moist Neck exam: Present: normal inspection. Absent: tenderness, meningismus, lymphadenopathy Respiratory exam: Present: normal lung sounds bilaterally. Absent: respiratory distress, wheezes, rales, rhonchi, stridor Cardiovascular Exam: Present: regular rate, normal rhythm, normal heart sounds. Absent: systolic murmur, diastolic murmur, rubs, gallop, clicks GI/Abdominal exam: Present: soft, normal bowel sounds. Absent: distended, tenderness, guarding, rebound, rigid Extremities exam: Present: normal inspection, full ROM, normal capillary refill. Absent: tenderness, pedal edema, joint swelling, calf tenderness Back exam: Present: normal inspection Neurological exam: Present: alert, oriented X3, CN II-XII intact Psychiatric exam: Present: normal affect, normal mood Skin exam: Present: warm, dry, intact, normal color. Absent: rash Course Vital Signs 12/28/17 12/28/17 12/28/17 09:42 10:07 11:01 Temperature 98.6 F Pulse Rate 56 L 82 Respiratory 26 H 16 16 Rate Blood Pressure 148/97 O2 Sat by Pulse 95 Oximetry 12/28/17 12/28/17 11:15 11:58 Temperature 98 F Pulse Rate 83 89 Respiratory 16 18 Rate Blood Pressure 155/96 O2 Sat by Pulse 95 Oximetry - Reevaluation(s) Reevaluation #1: Record is reviewed A she is able to ambulate without significant dyspnea Medical Decision Making - Medical Decision Making 67 male the ER for evaluation of shortness of breath COPD exacerbation secondary to smoking. X-ray negative labwork normal. Patient does have continued drainage from left thoracentesis tube, patient can be discharged home - Lab Data Result diagrams: 12/28/17 10:29 12/28/17 10:29 Lab Results 12/28/17 12/28/17 12/28/17 Range/Units 10:29 10:29 10:29 WBC 11.4 H (3.8-10.6) k/uL RBC 5.09 (4.30-5.90) m/uL Hgb 16.0 (13.0-17.5) gm/dL Hct 47.7 (39.0-53.0) % MCV 93.7 (80.0-100.0) fL MCH 31.4 (25.0-35.0) pg MCHC 33.6 (31.0-37.0) g/dL RDW 12.7 (11.5-15.5) % Plt Count 336 (150-450) k/uL Neutrophils % 81 % Lymphocytes % 10 % Monocytes % 6 % Eosinophils % 2 % Basophils % 1 % Neutrophils # 9.2 H (1.3-7.7) k/uL Lymphocytes # 1.2 (1.0-4.8) k/uL Monocytes # 0.7 (0-1.0) k/uL Eosinophils # 0.2 (0-0.7) k/uL Basophils # 0.1 (0-0.2) k/uL PT (9.0-12.0) sec INR (<1.2) APTT (22.0-30.0) sec Sodium 137 (137-145) mmol/L Potassium 5.6 H (3.5-5.1) mmol/L Chloride 107 (98-107) mmol/L Carbon Dioxide 20 L (22-30) mmol/L Anion Gap 10 mmol/L BUN 28 H (9-20) mg/dL Creatinine 1.35 H (0.66-1.25) mg/dL Est GFR (CKD-EPI)AfAm 63 (>60 ml/min/1.73 sqM) Est GFR (CKD-EPI)NonAf 54 (>60 ml/min/1.73 sqM) Glucose 115 H (74-99) mg/dL Calcium 9.7 (8.4-10.2) mg/dL Magnesium 2.3 (1.6-2.3) mg/dL Total Bilirubin 0.8 (0.2-1.3) mg/dL AST 63 H (17-59) U/L ALT 70 (21-72) U/L Alkaline Phosphatase 87 (38-126) U/L Total Creatine Kinase 301 H (55-170) U/L CK-MB (CK-2) 1.9 (0.0-2.4) ng/mL CK-MB (CK-2) Rel Index 0.6 Troponin I <0.012 (0.000-0.034) ng/mL Total Protein 7.1 (6.3-8.2) g/dL Albumin 4.0 (3.5-5.0) g/dL 12/28/17 Range/Units 10:29 WBC (3.8-10.6) k/uL RBC (4.30-5.90) m/uL Hgb (13.0-17.5) gm/dL Hct (39.0-53.0) % MCV (80.0-100.0) fL MCH (25.0-35.0) pg MCHC (31.0-37.0) g/dL RDW (11.5-15.5) % Plt Count (150-450) k/uL Neutrophils % % Lymphocytes % % Monocytes % % Eosinophils % % Basophils % % Neutrophils # (1.3-7.7) k/uL Lymphocytes # (1.0-4.8) k/uL Monocytes # (0-1.0) k/uL Eosinophils # (0-0.7) k/uL Basophils # (0-0.2) k/uL PT 9.7 (9.0-12.0) sec INR 1.0 (<1.2) APTT 24.3 (22.0-30.0) sec Sodium (137-145) mmol/L Potassium (3.5-5.1) mmol/L Chloride (98-107) mmol/L Carbon Dioxide (22-30) mmol/L Anion Gap mmol/L BUN (9-20) mg/dL Creatinine (0.66-1.25) mg/dL Est GFR (CKD-EPI)AfAm (>60 ml/min/1.73 sqM) Est GFR (CKD-EPI)NonAf (>60 ml/min/1.73 sqM) Glucose (74-99) mg/dL Calcium (8.4-10.2) mg/dL Magnesium (1.6-2.3) mg/dL Total Bilirubin (0.2-1.3) mg/dL AST (17-59) U/L ALT (21-72) U/L Alkaline Phosphatase (38-126) U/L Total Creatine Kinase (55-170) U/L CK-MB (CK-2) (0.0-2.4) ng/mL CK-MB (CK-2) Rel Index Troponin I (0.000-0.034) ng/mL Total Protein (6.3-8.2) g/dL Albumin (3.5-5.0) g/dL - EKG Data -: EKG Interpreted by Me (EKG shows sinus rhythm rate of 86, UT 146, QRS 114, QTc 466) EKG shows normal: sinus rhythm Rate: normal - Radiology Data Radiology results: report reviewed (Chest x-rays negative for acute disease), image reviewed Disposition Clinical Impression: COPD (chronic obstructive pulmonary disease) Disposition: HOME SELF-CARE Condition: Good Instructions: Chronic Bronchitis (ED) Is patient prescribed a controlled substance at d/c from ED?: No Referrals: Efrain Vazquez DO [Primary Care Provider] - 1-2 days
[2017-12-28 11:00] LABS: Basophils # (A) 0.1 k/uL (0-0.2); Basophils % (A) 1 %; Eosinophils # (A) 0.2 k/uL (0-0.7); Eosinophils % (A) 2 %; HCT 47.7 % (39.0-53.0); Lymphocytes # (A) 1.2 k/uL (1.0-4.8); Lymphocytes % (A) 10 %; MCH 31.4 pg (25.0-35.0); MCHC 33.6 g/dL (31.0-37.0); MCV 93.7 fL (80.0-100.0); Mean Platelet Volume 6.6; Monocytes # (A) 0.7 k/uL (0-1.0); Monocytes % (A) 6 %; Neutrophils # (A) 9.2 k/uL (1.3-7.7); Neutrophils % (A) 81 %; Platelet Count 336 k/uL (150-450); RBC 5.09 m/uL (4.30-5.90); RDW 12.7 % (11.5-15.5); WBC 11.4 k/uL (3.8-10.6)
[2017-12-28 11:08] LABS: Calcium 9.7 mg/dL (8.4-10.2); Magnesium 2.3 mg/dL (1.6-2.3); Potassium 5.6 mmol/L (3.5-5.1); Total Bilirubin 0.8 mg/dL (0.2-1.3); Total Protein 7.1 g/dL (6.3-8.2)
[2017-12-28 11:20] LABS: Creatine Kinase 301 U/L (55-170)
[2017-12-28 11:24] LABS: Partial Thromboplastin Time 24.3 sec (22.0-30.0); Prothrombin Time 9.7 sec (9.0-12.0)
--- NOTE | 2017-12-28 11:30 | XR ---
EXAMINATION TYPE: XR chest 2V DATE OF EXAM: 12/28/2017 COMPARISON: 12/27/2017 INDICATION: Difficulty breathing history of cancer TECHNIQUE: Frontal and lateral views of the chest are obtained. FINDINGS: The heart size is normal. The pulmonary vasculature is normal. The lungs are clear. There is a chest tube present on the left with the tip directed towards the ape x. No pneumothorax is evident. IMPRESSION: 1. Left-sided chest tube remains in position. 2. No pneumothorax.
[2017-12-28 11:33] LABS: Creatine Kinase MB 1.9 ng/mL (0.0-2.4); Troponin I <0.012 ng/mL (0.000-0.034)
[2017-12-28 11:59] VITALS: BP 155/96; PULSE 89; RESP 18; TEMP 98
== END 2017-12-28 11:58 | disposition home or self-care (01) ==
LOC: EC 09:35
DX: J44.9 Chronic obstructive pulmonary disease, unspecified (principal); I10 Essential (primary) hypertension; I25.10 Atherosclerotic heart disease of native coronary artery without angina pectoris; I25.2 Old myocardial infarction; I69.398 Other sequelae of cerebral infarction; H57.89 Other specified disorders of eye and adnexa; F17.200 Nicotine dependence, unspecified, uncomplicated; Z79.899 Other long term (current) drug therapy; Z85.118 Personal history of other malignant neoplasm of bronchus and lung; Z95.818 Presence of other cardiac implants and grafts; Z98.890 Other specified postprocedural states
CPT/HCPCS: 36415; 71046; 80053; 82550; 82553; 83735; 84484; 85025; 85610; 85730; 94640; 99285

== ENCOUNTER → 2018-01-03 | Outpatient (CLI) | payer MEDICARE ==
--- NOTE | 2018-01-03 13:24 | XR ---
EXAMINATION TYPE: XR chest 2V DATE OF EXAM: 01/03/2018 COMPARISON: Chest x-ray from 6 days ago. HISTORY: Left-sided lobectomy 2 weeks ago with chest tube. TECHNIQUE: Frontal and lateral views of the chest are obtained. FINDINGS: There is interval removal of left-sided chest tube with small apical lateral pneumothorax estimated 5-10%. There is better visualization or new left posterior fourth rib fracture. No suspicio us focal airspace opacity or pleural effusion is seen bilaterally. No new mediastinal shift is presen t. The cardiac silhouette size is stable and within normal limits. The osseous structures are intac t. IMPRESSION: Interval removal of left-sided chest tube with small left apical lateral pneumothorax es timated 5-10%.
== END | disposition home or self-care (01) ==
LOC: RADXRMAIN 12:40
PROVIDERS: ATTEND Thoracic Surgery (Cardiothoracic Vascular Surgery)
DX: Z48.813 Encounter for surgical aftercare following surgery on the respiratory system (principal); Z97.8 Presence of other specified devices; Z90.2 Acquired absence of lung [part of]
CPT/HCPCS: 71046

== ENCOUNTER 2019-01-25 09:42 | Emergency (ER) | payer MEDICARE ==
[2019-01-25 10:29] LABS: Basophils # (A) 0.1 k/uL (0-0.2); Basophils % (A) 0 %; Eosinophils # (A) 0.1 k/uL (0-0.7); Eosinophils % (A) 1 %; HCT 42.8 % (39.0-53.0); HGB 14.5 gm/dL (13.0-17.5); Lymphocytes # (A) 1.3 k/uL (1.0-4.8); Lymphocytes % (A) 10 %; Mean Platelet Volume 6.2; Monocytes # (A) 0.5 k/uL (0-1.0); Monocytes % (A) 4 %; Neutrophils # (A) 10.5 k/uL (1.3-7.7); Neutrophils % (A) 83 %; Platelet Count 435 k/uL (150-450); RDW 12.6 % (11.5-15.5); WBC 12.6 k/uL (3.8-10.6)
--- NOTE | 2019-01-25 10:29 | XR ---
EXAMINATION TYPE: XR chest 2V DATE OF EXAM: 01/25/2019 COMPARISON: Chest x-ray January 03, 2018. HISTORY: Chest pain. TECHNIQUE: Frontal and lateral views of the chest are obtained. FINDINGS: There is elevated left hemidiaphragm with small left pleural effusion and associated left basilar atelectasis and/or infiltrate. New tiny right pleural effusion. The cardiac silhouette size i s upper limits of normal. The osseous structures are intact. IMPRESSION: New Elevated left hemidiaphragm with small left pleural effusion and associated left bas ilar atelectasis and/or infiltrate. New tiny right pleural effusion.
--- NOTE | 2019-01-25 10:30 | XR ---
EXAMINATION TYPE: XR Hip Complete RT DATE OF EXAM: 01/25/2019 CLINICAL HISTORY: Pain. TECHNIQUE: AP and frogleg views of the right hip are obtained. COMPARISON: None. FINDINGS: Some demineralization. There is no acute fracture/dislocation evident in the right hip. Mod erate to severe superior joint space loss right hip. Right groin vascular calcification. IMPRESSION: As above.
[2019-01-25 10:38] LABS: Albumin 4.1 g/dL (3.5-5.0); Calcium 10.4 mg/dL (8.4-10.2); Magnesium 2.1 mg/dL (1.6-2.3); Potassium 4.5 mmol/L (3.5-5.1); Total Bilirubin 0.6 mg/dL (0.2-1.3); Total Protein 7.3 g/dL (6.3-8.2)
[2019-01-25 10:49] LABS: Partial Thromboplastin Time 25.1 sec (22.0-30.0); Prothrombin Time 10.5 sec (9.0-12.0)
[2019-01-25 11:00] LABS: D-Dimer 1.57 mg/L FEU (<0.60)
--- NOTE | 2019-01-25 11:06 | ED ---
General Adult HPI - General Chief complaint: Chest Pain Stated complaint: RT HIP PAIN, COLBY Time Seen by Provider: 01/25/19 09:52 Source: patient, RN notes reviewed, old records reviewed Mode of arrival: ambulatory Limitations: no limitations - History of Present Illness Initial comments: 68-year-old male presenting for evaluation of dyspnea, cough, mild chest pain, and right hip pain. Patient's symptoms have been ongoing for many months including the dyspnea and right hip pain. He does report some left-sided chest pain which is worse with deep inspiration. He reports this as a very mild pain and again ongoing for many months. He has remote history of lung cancer status post resection. He is not on chemo at this time. He denies nausea or vomiting. Denies diaphoresis. His hip pain has also been chronic for several months. This is pain radiating from his right hip to his foot. He does not report any low back pain. No history of sciatica. He states the pain is predominantly in his right hip. Denies numbness or tingling. - Related Data Home Medications Medication Instructions Recorded Confirmed Ibuprofen [Motrin Ib] 400 mg PO Q6H PRN 08/27/17 12/28/17 Metoprolol Succinate [Toprol XL] 25 mg PO DAILY 12/17/17 12/28/17 Brimonidine Tartrate [Alphagan P 1 drops BOTH EYES Q8H 12/20/17 12/28/17 0.1% Ophth Soln] Previous Rx's Medication Instructions Recorded Lisinopril [Zestril] 10 mg PO DAILY #15 tab 08/27/17 Aspirin 325 mg PO DAILY #30 tab 09/22/17 Atorvastatin [Lipitor] 80 mg PO HS #30 tab 09/22/17 Clopidogrel [Plavix] 75 mg PO DAILY #30 tab 09/22/17 Acetaminophen Tab [Tylenol] 325 - 650 mg PO Q4HR PRN tab 12/27/17 Azithromycin [Zithromax Z-pack] 0 mg PO DIRECTED #6 tab 01/25/19 Allergies Allergy/AdvReac Type Severity Reaction Status Date / Time No Known Allergies Allergy Verified 12/28/17 09:56 Review of Systems ROS Statement: Those systems with pertinent positive or pertinent negative responses have been documented in the HPI. ROS Other: All systems not noted in ROS Statement are negative. 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 occurring in August 2017, hypertension, hyperlipidemia Last Myocardial Infarction Date:: 1998 History of Any Multi-Drug Resistant Organisms: None Reported Past Surgical History: Back Surgery, Heart Catheterization Past Anesthesia/Blood Transfusion Reactions: No Reported Reaction Past Psychological History: No Psychological Hx Reported Smoking Status: Current some day smoker Past Alcohol Use History: None Reported Past Drug Use History: None Reported - Past Family History Mother Family Medical History: No Reported History Father Additional Family Medical History / Comment(s): alcoholism General Exam Limitations: no limitations General appearance: alert, in no apparent distress Head exam: Present: atraumatic, normocephalic Eye exam: Present: normal appearance, PERRL ENT exam: Present: normal exam Neck exam: Present: normal inspection. Absent: tenderness, meningismus Respiratory exam: Present: wheezes (Scattered wheezing), decreased breath sounds (Decreased breath sounds on the left lung bases). Absent: respiratory distress Cardiovascular Exam: Present: normal rhythm, tachycardia GI/Abdominal exam: Present: soft. Absent: distended, tenderness, guarding Extremities exam: Present: normal inspection, full ROM (Normal range of motion at the right hip), normal capillary refill, other (Distal pulses are 2+). Absent: pedal edema Back exam: Present: normal inspection, full ROM, other (Lumbar incision well- healed). Absent: tenderness, muscle spasm Neurological exam: Present: alert, oriented X3, CN II-XII intact. Absent: motor sensory deficit Psychiatric exam: Present: normal affect, normal mood Skin exam: Present: warm, dry, intact. Absent: cyanosis, diaphoretic Course Vital Signs 01/25/19 01/25/19 01/25/19 09:47 09:54 09:56 Temperature 98.3 F Pulse Rate 110 H Pulse Rate [ 108 H [employer] ] Respiratory 18 20 Rate Blood Pressure 163/107 O2 Sat by Pulse 96 Oximetry 01/25/19 01/25/19 01/25/19 10:06 10:08 11:00 Temperature Pulse Rate 85 98 84 Pulse Rate [ [employer] ] Respiratory 18 18 18 Rate Blood Pressure 175/102 165/114 O2 Sat by Pulse 96 99 95 Oximetry EKG Findings - EKG Comments: EKG Findings:: EKG: Normal sinus rhythm, occasional PVC T-wave inversion in the inferior leads, rate of 89, ND interval 146, QRS duration 118, QTC 457, no ST segment elevation. Medical Decision Making - Medical Decision Making 68-year-old male history of left-sided lung CA, status post resection presenting with several months of dyspnea, left-sided chest pain, and right hip pain. He was urged to present to the emergency department by his sister for follow-up. He states these issues have been long-standing no acute change. He has a chest x-ray which shows a elevation of the left hemidiaphragm and small bilateral effusion. He has CBC showed white count 12.6, stable hemoglobin. He has an elevated d-dimer at 1.57. CT is performed which shows concern for left hilar mass, involvement of the mediastinum as well as the liver. Patient is informed of these results. I prefer the patient be admitted for urgent evaluation. He declines prefers outpatient follow-up. He does have a relationship with the appropriate providers. His sister is at bedside and both are eager for discharge and outpatient follow-up. They do not want admission. They state they will make the appropriate appointments. Given the mild leukocytosis and concern for possible infiltrate versus atel ectasis, patient will be covered with antibiotics. He will return the emergency department with worsening or changing symptoms. - Lab Data Result diagrams: 01/25/19 10:06 01/25/19 10:06 Lab Results 01/25/19 01/25/19 01/25/19 Range/Units 10:06 10:06 10:06 WBC 12.6 H (3.8-10.6) k/uL RBC 4.70 (4.30-5.90) m/uL Hgb 14.5 (13.0-17.5) gm/dL Hct 42.8 (39.0-53.0) % MCV 91.0 (80.0-100.0) fL MCH 31.0 (25.0-35.0) pg MCHC 34.0 (31.0-37.0) g/dL RDW 12.6 (11.5-15.5) % Plt Count 435 (150-450) k/uL Neutrophils % 83 % Lymphocytes % 10 % Monocytes % 4 % Eosinophils % 1 % Basophils % 0 % Neutrophils # 10.5 H (1.3-7.7) k/uL Lymphocytes # 1.3 (1.0-4.8) k/uL Monocytes # 0.5 (0-1.0) k/uL Eosinophils # 0.1 (0-0.7) k/uL Basophils # 0.1 (0-0.2) k/uL PT 10.5 (9.0-12.0) sec INR 1.0 (<1.2) APTT 25.1 (22.0-30.0) sec D-Dimer 1.57 H (<0.60) mg/L FEU Sodium 137 (137-145) mmol/L Potassium 4.5 (3.5-5.1) mmol/L Chloride 104 (98-107) mmol/L Carbon Dioxide 23 (22-30) mmol/L Anion Gap 10 mmol/L BUN 15 (9-20) mg/dL Creatinine 1.25 (0.66-1.25) mg/dL Est GFR (CKD-EPI)AfAm 69 (>60 ml/min/1.73 sqM) Est GFR (CKD-EPI)NonAf 60 (>60 ml/min/1.73 sqM) Glucose 114 H (74-99) mg/dL Calcium 10.4 H (8.4-10.2) mg/dL Magnesium 2.1 (1.6-2.3) mg/dL Total Bilirubin 0.6 (0.2-1.3) mg/dL AST 30 (17-59) U/L ALT 17 L (21-72) U/L Alkaline Phosphatase 144 H (38-126) U/L Troponin I (0.000-0.034) ng/mL NT-Pro-B Natriuret Pep pg/mL Total Protein 7.3 (6.3-8.2) g/dL Albumin 4.1 (3.5-5.0) g/dL 01/25/19 01/25/19 Range/Units 10:06 10:06 WBC (3.8-10.6) k/uL RBC (4.30-5.90) m/uL Hgb (13.0-17.5) gm/dL Hct (39.0-53.0) % MCV (80.0-100.0) fL MCH (25.0-35.0) pg MCHC (31.0-37.0) g/dL RDW (11.5-15.5) % Plt Count (150-450) k/uL Neutrophils % % Lymphocytes % % Monocytes % % Eosinophils % % Basophils % % Neutrophils # (1.3-7.7) k/uL Lymphocytes # (1.0-4.8) k/uL Monocytes # (0-1.0) k/uL Eosinophils # (0-0.7) k/uL Basophils # (0-0.2) k/uL PT (9.0-12.0) sec INR (<1.2) APTT (22.0-30.0) sec D-Dimer (<0.60) mg/L FEU Sodium (137-145) mmol/L Potassium (3.5-5.1) mmol/L Chloride (98-107) mmol/L Carbon Dioxide (22-30) mmol/L Anion Gap mmol/L BUN (9-20) mg/dL Creatinine (0.66-1.25) mg/dL Est GFR (CKD-EPI)AfAm (>60 ml/min/1.73 sqM) Est GFR (CKD-EPI)NonAf (>60 ml/min/1.73 sqM) Glucose (74-99) mg/dL Calcium (8.4-10.2) mg/dL Magnesium (1.6-2.3) mg/dL Total Bilirubin (0.2-1.3) mg/dL AST (17-59) U/L ALT (21-72) U/L Alkaline Phosphatase (38-126) U/L Troponin I 0.028 (0.000-0.034) ng/mL NT-Pro-B Natriuret Pep 1580 pg/mL Total Protein (6.3-8.2) g/dL Albumin (3.5-5.0) g/dL Disposition Clinical Impression: Lung mass, Pneumonia Disposition: HOME SELF-CARE Condition: Fair Instructions (If sedation given, give patient instructions): Bacterial Pneumonia (ED), Chest Pain (ED) Additional Instructions: CT performed in the emergency department does show concern for left lung mass. Please follow up with pulmonology, oncology, and your primary care physician. Please return with worsening or changing symptoms. Prescriptions: Azithromycin [Zithromax Z-pack] 0 mg PO DIRECTED #6 tab Is patient prescribed a controlled substance at d/c from ED?: No Referrals: Efrain Vazquez DO [Primary Care Provider] - 1-2 days Kashif Avendano DO [Doctor of Osteopathic Medicine] - 1-2 days Antonino Dominguez MD [STAFF PHYSICIAN] - 1-2 days Harpal Bey MD [STAFF PHYSICIAN] - 1-2 days Time of Disposition: 11:48
--- NOTE | 2019-01-25 11:32 | CT ---
EXAMINATION TYPE: CT angio chest DATE OF EXAM: 01/25/2019 COMPARISON: PET CT October 13, 2017. Most recent chest x-ray earlier today an older studies. HISTORY: chest tightness, COLBY, lung CA CT DLP: 267.7 mGycm. Automated Exposure Control for Dose Reduction was Utilized. CONTRAST: CTA scan of the thorax is performed with IV Contrast, patient injected with 72 mL of Isovue 370, pulm onary embolism protocol. MIP Images are created on CT scanner and reviewed. FINDINGS: LUNGS: Exam suboptimal due to respiratory motion artifact limiting evaluation for subcentimeter nodul es. There is background moderate underlying emphysematous change present. There is no elevated left h emidiaphragm with new small left pleural effusion and left basilar irregular consolidation and/or ate lectasis with more central nodular infiltrates present. Small 1 cm focal area of irregular infiltrate and/or scarring anterior right midlung image 58. No pneumothorax bilaterally. MEDIASTINUM: There is satisfactory enhancement of the pulmonary artery and its branches, there is no CT evidence for pulmonary embolism. There is no cardiomegaly or pericardial effusion is seen. There is new irregular soft tissue prevascular space extending inferiorly into the AP window and encasing p ortion of the left pulmonary artery, neoplastic recurrence is likely. There is extension to left sandoval r region. Abnormal lymph node anterior to this measuring 1.5 x 1.1 cm axial image 43 is noted. 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 OTHER: New scattered hypodense lesions throughout the liver are consistent with interval development of metastatic disease. IMPRESSION: 1. No CT evidence for acute pulmonary embolism. 2. Confirmation of new elevated left hemidiaphragm with small left pleural effusion and left basilar consolidation and/or atelectasis. There is likely neoplastic recurrence with nodularity and extension of irregular consolidation to the left hilar region. New left Basilar disease cannot be excluded. Th ere is suspected new mediastinal and left hilar disease. New hepatic metastatic disease is present. A ll findings can be better evaluated with repeat PET CT if desired.
[2019-01-25 12:09] VITALS: BP 148/102; PULSE 85; RESP 19; TEMP 98.2
== END 2019-01-25 12:09 | disposition home or self-care (01) ==
LOC: EC 09:42
DX: J18.9 Pneumonia, unspecified organism (principal); R91.8 Other nonspecific abnormal finding of lung field; J90 Pleural effusion, not elsewhere classified; J98.6 Disorders of diaphragm; R79.1 Abnormal coagulation profile; R00.0 Tachycardia, unspecified; M25.551 Pain in right hip; M79.671 Pain in right foot; I10 Essential (primary) hypertension; I25.2 Old myocardial infarction; I25.10 Atherosclerotic heart disease of native coronary artery without angina pectoris; I69.998 Other sequelae following unspecified cerebrovascular disease; H53.9 Unspecified visual disturbance; F17.200 Nicotine dependence, unspecified, uncomplicated; Z79.899 Other long term (current) drug therapy; Z85.118 Personal history of other malignant neoplasm of bronchus and lung; Z90.2 Acquired absence of lung [part of]; Z95.818 Presence of other cardiac implants and grafts; Z98.890 Other specified postprocedural states; Z53.20 Procedure and treatment not carried out because of patient's decision for unspecified reasons
CPT/HCPCS: 36415; 93005; 85379; 83880; 80053; 83735; 84484; 85025; 85610; 85730; 73502; 71046; 71275; 99285; Q9967

== ENCOUNTER → 2019-02-05 | Outpatient (CLI) | payer MEDICARE ==
--- NOTE | 2019-02-05 10:51 | XR ---
EXAMINATION TYPE: XR femur RT DATE OF EXAM: 02/05/2019 CLINICAL HISTORY: Nontraumatic right femoral pain. Lung cancer. TECHNIQUE: Two views of the right femur are obtained. COMPARISON: 01/25/2019 FINDINGS: There is mild diffuse osseous demineralization. There is no acute fracture or dislocation seen in the right femur. Joint space narrowing is seen of the right femoral acetabular joint. The rig ht hip and knee joints appear aligned with mild joint space narrowing of the medial compartment of th e knee. Mild atherosclerosis is seen. Incidentally noted fabella. The overlying soft tissue appears unremarkable. IMPRESSION: There is no acute fracture or dislocation in the right femur. Mild medial compartment ar thropathy of the right knee and mild femoral acetabular arthropathy.
--- NOTE | 2019-02-05 23:43 | MR ---
EXAMINATION TYPE: MR brain wo/w con DATE OF EXAM: 02/05/2019 COMPARISON: 09/21/2017 HISTORY: Lung CA, headache CONTRAST: Standard multiplanar, multisequence MRI departmental protocol utilizing 7 mL intravenous Gadavist haven olinium contrast. There is diffuse cerebral cortical atrophy. There is no mass effect nor midline shift. There is a wed ge-shaped 4.5 x 3 cm area of abnormal increased signal on the FLAIR images in the left posterior temp oral lobe. There is no pathologic enhancing focus. There is no mass effect. On the FLAIR images there is diffuse increased signal in the periventricular white matter with cholec ystectomy areas that measure up to 1 cm. The brainstem is intact. There is no pathologic enhancement. Cerebellum is intact. There is mucosal thickening left maxillary sinus. There is normal contrast opacification of the venous sinuses. Sella turcica appears normal. Impression nonenhancing wedge-shaped lesion in the left posterior temporal lobe consistent with old cortical in farct that has increased in size compared to previous exam. No enhancement seen to suggest metastatic disease. Diffuse white matter changes around the ventricles probably relates to chronic small vessel ischemia. Mild atrophy of the corpus callosum. Diffuse atrophy.
== END | disposition home or self-care (01) ==
LOC: RADMRIMAIN 08:25
PROVIDERS: ATTEND Internal Medicine Hematology & Oncology
DX: M12.861 Other specific arthropathies, not elsewhere classified, right knee (principal); M12.851 Other specific arthropathies, not elsewhere classified, right hip; G93.9 Disorder of brain, unspecified; R90.89 Other abnormal findings on diagnostic imaging of central nervous system; G31.89 Other specified degenerative diseases of nervous system; C34.12 Malignant neoplasm of upper lobe, left bronchus or lung; E78.5 Hyperlipidemia, unspecified
CPT/HCPCS: 73552; 70553; A9585

== ENCOUNTER → 2019-02-07 | Outpatient (CLI) | payer MEDICARE ==
[~2019-02-07] MED LIST changes: -DEXAMETHASONE SOD PHOSPHATE 10 MG/ML 1 ML VIAL IV ONE; -LIDOCAINE 1% 20 ML VIAL (10MG/ML) FOR IV START INTRADERMA PRN; -MIDAZOLAM 2 MG/2 ML VIAL IV PRN; -ONDANSETRON 4 MG/2 ML VIAL IVP ONE; +SODIUM CHLORIDE 0.9% 1,000 ML IV SCH; +SODIUM CHLORIDE 0.9% 500 ML 500 ML in EMPTY BAG 1 BAG IV PRN; +ZOLEDRONIC ACID 4 MG in SODIUM CHLORIDE 0.9% 100 ML IV NR; -ceFAZolin IN SWFI 2 GM/20 ML SYRINGE IVP ONE; -fentaNYL (PF) 50 MCG/ML 2 ML AMP IV PRN
[2019-02-07 12:35] VITALS: BP 148/96; PULSE 117; RESP 16; TEMP 97.6
== END | disposition home or self-care (01) ==
LOC: PROCWHC3 12:15
PROVIDERS: ATTEND Internal Medicine Hematology & Oncology
DX: C34.12 Malignant neoplasm of upper lobe, left bronchus or lung (principal); E83.52 Hypercalcemia
CPT/HCPCS: 96360; 96361; 96367; J3489

== ENCOUNTER → 2019-02-08 | Outpatient (CLI) | payer MEDICARE ==
--- NOTE | 2019-02-11 07:26 | PE ---
EXAMINATION TYPE: PET CT fusion skull to thigh DATE OF EXAM: 02/08/2019 COMPARISON: PET CT October 13, 2017. Most recent chest CT January 25, 2019. HISTORY: Lung cancer progress study. Left-sided lung cancer diagnosed in 2018 without treatment. TECHNIQUE: Following the intravenous administration of 10.19 mCi of F-18 FDG, whole body images are performed from the skull base to the midthigh. Images are reviewed on the computer in the coronal, a xial, and sagittal planes. Reconstructed rotating images are created on independent workstation and reviewed on the computer. A noncontrast CT is performed in conjunction with the PET scan. SCAN: Initial Scan FINDINGS: SKULL BASE AND NECK: Wedge-shaped area of diminished hypermetabolic uptake left parietal level axial image 3 correlates with known posterior watershed infarct on recent MRI. No areas of abnormal hypermetabolic uptake. CHEST, MEDIASTINUM, AND HILAR REGION: Background fairly moderate to advanced underlying emphysematous change. Small left pleural effusion slightly larger from most recent CT with suspected adjacent pleu ral thickening as there is mild hypermetabolic uptake left lateral aspect, max SUV axial image 109 is 3.34. There are several suspicious hypermetabolic mediastinal lymph nodes some somewhat confluent appearanc e prevascular space, for reference anterior group axial image 86 measures 1.9 x 2.0 cm with max SUV o f 6.2. Abnormal hypermetabolic 1.4 x 1.1 cm right paratracheal lymph node axial image 86 with max SUV of 5.2. ABDOMEN AND PELVIS: Hepatic metastatic disease confirmed with multiple hypermetabolic hypodense kamala s for reference left hepatic lobe lesion measures 2.2 cm lateral segment axial image 139 Max SUV of 7 .15. Some larger hypodense centrally ametabolic lesions consistent with central necrosis are noted sc attered throughout the liver. They are new from prior PET/CT consistent with metastatic disease. OSSEOUS STRUCTURES: Diffuse osseous metastatic disease is now present. Destructive lytic hypermetabol ic bony lesion posterior C1 level axial image 36 noted. Additional hypermetabolic lytic lesions lowe r cervical spine noted axial image 51 for reference. Destructive lytic lesion left T1 rib axial image 60 with max SUV of 7.96. Hypermetabolic 2.0 cm lytic lesion left scapula near glenoid axial image 68 with max SUV of 10.93. Innumerable additional hypermetabolic destructive lesions are seen for refere nce left initial tuberosity lesion measures 4.2 x 2.8 cm axial image 222 with max SUV of 12.71. Addit ional involvement throughout the pelvis and thoracolumbar spine and multiple bilateral ribs are noted . One of larger lesions right L4 level beginning to encroach on spinal canal axial image 178 is noted . Lesion upper lumbar spine encroaches near spinal canal axial image 147. OTHER CT: Moderate calcified plaque bilateral carotid bulb level. Ascending aorta measures up to 3.5 cm in diameter. Descending aorta measures 3.4 cm in diameter. Moderate to severe three-vessel coronar y artery calcification is present. Gallbladder is distended margins with dependent rim calcified roun d gallstone. Ectatic abdominal aorta measuring up to 2.9 cm transversely axial image 175. IMPRESSION: Advanced lung cancer identified as detailed above with with marked osseous metastatic dis ease and hepatic metastatic disease both noted. Some of the destructive osseous lesions beginning to encroach upon spinal canal as noted above.
== END | disposition home or self-care (01) ==
LOC: RADPETMAIN 14:48
PROVIDERS: ATTEND Internal Medicine Hematology & Oncology
DX: C78.7 Secondary malignant neoplasm of liver and intrahepatic bile duct (principal); C79.51 Secondary malignant neoplasm of bone; C34.12 Malignant neoplasm of upper lobe, left bronchus or lung; J43.9 Emphysema, unspecified; J90 Pleural effusion, not elsewhere classified; I25.10 Atherosclerotic heart disease of native coronary artery without angina pectoris; I65.29 Occlusion and stenosis of unspecified carotid artery; I77.811 Abdominal aortic ectasia; K80.20 Calculus of gallbladder without cholecystitis without obstruction
CPT/HCPCS: 78815; A9552

== ENCOUNTER 2019-02-14 15:39 | Inpatient (IN) | payer MEDICARE ==
[2019-02-14] MEDS ORDERED: SODIUM CHLORIDE 0.9% 1,000 ML IV STA ×2 (15:56→18:16)
[2019-02-14] MEDS ORDERED: IPRATROPIUM-ALBUTEROL 3 ML NEB INHALATION STA (15:56)
--- NOTE | 2019-02-14 15:59 | ED ---
SOB HPI - General Chief Complaint: Shortness of Breath Stated Complaint: Sob Time Seen by Provider: 02/14/19 15:47 Source: patient, RN notes reviewed, old records reviewed Mode of arrival: ambulatory Limitations: no limitations - History of Present Illness Initial Comments: This is a 68-year-old male here with significant shortness of breath shortness o f breath 3 hours. No chest pain) increasing significant shortness of breath. Symptoms began while hanging out with his son this morning no significant physical activity patient is improved on O2 and he has not been debrided she was at home. Family states is very stubborn and does not really take care of himself. He does have diagnosis of lung cancer and COPD. Denies recent smoking. No fevers does have increased cough and congestion MD Complaint: shortness of breath, cough, anxiety -: days(s) Severity: moderate Severity scale (1-10): 7 Consistency: constant Improves With: oxygen, rest, bronchodilators Worsens With: exertion, movement Known History Of: COPD, other (Lung cancer) Context: recent URI Associated Symptoms: pain with inspiration, cough, sputum production, palpitations Treatments Prior to Arrival: oxygen - Related Data Home Medications Medication Instructions Recorded Confirmed Metoprolol Succinate [Toprol XL] 25 mg PO HS 12/17/17 02/14/19 Lisinopril [Zestril] 20 mg PO HS 02/10/19 02/14/19 Clopidogrel [Plavix] 75 mg PO HS 02/14/19 02/14/19 oxyCODONE-APAP 10-325MG [Percocet 1 tab PO Q6H PRN 02/14/19 02/14/19 10-325 mg] Previous Rx's Medication Instructions Recorded Atorvastatin [Lipitor] 80 mg PO HS #30 tab 09/22/17 Allergies Allergy/AdvReac Type Severity Reaction Status Date / Time No Known Allergies Allergy Verified 02/14/19 17:50 Review of Systems ROS Statement: Those systems with pertinent positive or pertinent negative responses have been documented in the HPI. ROS Other: All systems not noted in ROS Statement are negative. 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 Last Myocardial Infarction Date:: 1998 History of Any Multi-Drug Resistant Organisms: None Reported Past Surgical History: Back Surgery, Heart Catheterization Past Anesthesia/Blood Transfusion Reactions: No Reported Reaction Past Psychological History: No Psychological Hx Reported Smoking Status: Current some day smoker Past Alcohol Use History: None Reported Past Drug Use History: None Reported - Past Family History Mother Family Medical History: No Reported History Father Additional Family Medical History / Comment(s): alcoholism General Exam Limitations: no limitations General appearance: alert, in no apparent distress Head exam: Present: atraumatic, normocephalic, normal inspection Eye exam: Present: normal appearance, PERRL, EOMI. Absent: scleral icterus, conjunctival injection, periorbital swelling ENT exam: Present: normal exam, mucous membranes moist Neck exam: Present: normal inspection. Absent: tenderness, meningismus, lymphadenopathy Respiratory exam: Present: respiratory distress, wheezes, accessory muscle use, decreased breath sounds, prolonged expiratory. Absent: rales, rhonchi, stridor Cardiovascular Exam: Present: normal rhythm, tachycardia, normal heart sounds. Absent: systolic murmur, diastolic murmur, rubs, gallop, clicks GI/Abdominal exam: Present: soft, normal bowel sounds. Absent: distended, tenderness, guarding, rebound, rigid Extremities exam: Present: normal inspection, full ROM, normal capillary refill. Absent: tenderness, pedal edema, joint swelling, calf tenderness Back exam: Present: normal inspection Neurological exam: Present: alert, oriented X3, CN II-XII intact Psychiatric exam: Present: normal affect, normal mood Skin exam: Present: warm, dry, intact, normal color. Absent: rash Course Vital Signs 02/14/19 02/14/19 02/14/19 15:43 15:45 15:52 Temperature 97.7 F Pulse Rate 112 H Pulse Rate [ 110 H Bartender ] Respiratory 30 H 30 H Rate Blood Pressure 132/85 O2 Sat by Pulse 93 L 96 Oximetry 02/14/19 02/14/19 02/14/19 16:00 16:13 16:29 Temperature Pulse Rate 102 H 100 99 Pulse Rate [ Bartender ] Respiratory 21 Rate Blood Pressure 131/95 O2 Sat by Pulse 97 Oximetry 02/14/19 02/14/19 02/14/19 16:30 17:00 17:30 Temperature Pulse Rate 89 98 89 Pulse Rate [ Bartender ] Respiratory 18 18 20 Rate Blood Pressure 119/85 126/82 105/73 O2 Sat by Pulse 99 99 98 Oximetry 02/14/19 02/14/19 02/14/19 18:00 18:30 19:00 Temperature Pulse Rate 98 115 H Pulse Rate [ Bartender ] Respiratory 18 24 Rate Blood Pressure 134/85 122/75 130/78 O2 Sat by Pulse 98 97 Oximetry 02/14/19 19:30 Temperature Pulse Rate 112 H Pulse Rate [ Bartender ] Respiratory 24 Rate Blood Pressure 156/90 O2 Sat by Pulse 98 Oximetry - Reevaluation(s) Reevaluation #1: 02/14/19 16:33 Medical records reviewed Reevaluation #2: 02/14/19 19:44 She has no significant improvement with shortness of breath cough or congestion Medical Decision Making - Medical Decision Making 68 male to the ED for a evaluation patient with severe shortness of breath [employer] with lung cancer history hypoxia patient will be admitted for breathing treatments and further evaluation and management - Lab Data Result diagrams: 02/14/19 16:15 02/14/19 16:15 Lab Results 02/14/19 02/14/19 02/14/19 Range/Units 16:15 16:15 16:15 WBC 9.9 (3.8-10.6) k/uL RBC 4.71 (4.30-5.90) m/uL Hgb 14.4 (13.0-17.5) gm/dL Hct 42.0 (39.0-53.0) % MCV 89.2 (80.0-100.0) fL MCH 30.6 (25.0-35.0) pg MCHC 34.3 (31.0-37.0) g/dL RDW 12.5 (11.5-15.5) % Plt Count 433 (150-450) k/uL Neutrophils % 84 % Lymphocytes % 9 % Monocytes % 5 % Eosinophils % 1 % Basophils % 1 % Neutrophils # 8.3 H (1.3-7.7) k/uL Lymphocytes # 0.9 L (1.0-4.8) k/uL Monocytes # 0.5 (0-1.0) k/uL Eosinophils # 0.1 (0-0.7) k/uL Basophils # 0.1 (0-0.2) k/uL PT (9.0-12.0) sec INR (<1.2) APTT (22.0-30.0) sec Sodium 131 L (137-145) mmol/L Potassium 5.8 H (3.5-5.1) mmol/L Chloride 100 (98-107) mmol/L Carbon Dioxide 16 L (22-30) mmol/L Anion Gap 15 mmol/L BUN 16 (9-20) mg/dL Creatinine 1.01 (0.66-1.25) mg/dL Est GFR (CKD-EPI)AfAm 89 (>60 ml/min/1.73 sqM) Est GFR (CKD-EPI)NonAf 77 (>60 ml/min/1.73 sqM) Glucose 104 H (74-99) mg/dL Calcium 8.2 L (8.4-10.2) mg/dL Magnesium 2.3 (1.6-2.3) mg/dL Total Bilirubin 1.8 H (0.2-1.3) mg/dL AST 62 H (17-59) U/L ALT 16 (4-49) U/L Alkaline Phosphatase 189 H (38-126) U/L Troponin I (0.000-0.034) ng/mL NT-Pro-B Natriuret Pep 706 pg/mL Total Protein 8.1 (6.3-8.2) g/dL Albumin 4.3 (3.5-5.0) g/dL 02/14/19 02/14/19 Range/Units 16:15 16:15 WBC (3.8-10.6) k/uL RBC (4.30-5.90) m/uL Hgb (13.0-17.5) gm/dL Hct (39.0-53.0) % MCV (80.0-100.0) fL MCH (25.0-35.0) pg MCHC (31.0-37.0) g/dL RDW (11.5-15.5) % Plt Count (150-450) k/uL Neutrophils % % Lymphocytes % % Monocytes % % Eosinophils % % Basophils % % Neutrophils # (1.3-7.7) k/uL Lymphocytes # (1.0-4.8) k/uL Monocytes # (0-1.0) k/uL Eosinophils # (0-0.7) k/uL Basophils # (0-0.2) k/uL PT 10.9 (9.0-12.0) sec INR 1.0 (<1.2) APTT 28.1 (22.0-30.0) sec Sodium (137-145) mmol/L Potassium (3.5-5.1) mmol/L Chloride (98-107) mmol/L Carbon Dioxide (22-30) mmol/L Anion Gap mmol/L BUN (9-20) mg/dL Creatinine (0.66-1.25) mg/dL Est GFR (CKD-EPI)AfAm (>60 ml/min/1.73 sqM) Est GFR (CKD-EPI)NonAf (>60 ml/min/1.73 sqM) Glucose (74-99) mg/dL Calcium (8.4-10.2) mg/dL Magnesium (1.6-2.3) mg/dL Total Bilirubin (0.2-1.3) mg/dL AST (17-59) U/L ALT (4-49) U/L Alkaline Phosphatase (38-126) U/L Troponin I 0.014 (0.000-0.034) ng/mL NT-Pro-B Natriuret Pep pg/mL Total Protein (6.3-8.2) g/dL Albumin (3.5-5.0) g/dL - EKG Data -: EKG Interpreted by Me (EKG shows sinus tachycardia rate of 102, DE 130, QRS 104, QTC 474) - Radiology Data Radiology results: report reviewed (Sectors unchanged from prior CT chest is negative for PE does show significant lung CA unchanged in size from prior), image reviewed Disposition Clinical Impression: Tobacco dependence, Lung cancer, COPD (chronic obstructive pulmonary disease), Lung mass Disposition: ADMITTED IP TO THIS HOSP Condition: Fair Is patient prescribed a controlled substance at d/c from ED?: No Referrals: Efrain Vazquez DO [Primary Care Provider] - 1-2 days
[2019-02-14 16:41] LABS: Basophils # (A) 0.1 k/uL (0-0.2); Basophils % (A) 1 %; Eosinophils # (A) 0.1 k/uL (0-0.7); Eosinophils % (A) 1 %; HGB 14.4 gm/dL (13.0-17.5); Lymphocytes # (A) 0.9 k/uL (1.0-4.8); Lymphocytes % (A) 9 %; MCH 30.6 pg (25.0-35.0); MCHC 34.3 g/dL (31.0-37.0); MCV 89.2 fL (80.0-100.0); Monocytes # (A) 0.5 k/uL (0-1.0); Monocytes % (A) 5 %; Neutrophils # (A) 8.3 k/uL (1.3-7.7); Neutrophils % (A) 84 %; Platelet Count 433 k/uL (150-450); RBC 4.71 m/uL (4.30-5.90); RDW 12.5 % (11.5-15.5); WBC 9.9 k/uL (3.8-10.6)
[2019-02-14 16:47] LABS: Partial Thromboplastin Time 28.1 sec (22.0-30.0); Prothrombin Time 10.9 sec (9.0-12.0)
[2019-02-14 16:54] LABS: Albumin 4.3 g/dL (3.5-5.0); Calcium 8.2 mg/dL (8.4-10.2); Magnesium 2.3 mg/dL (1.6-2.3); Total Bilirubin 1.8 mg/dL (0.2-1.3); Total Protein 8.1 g/dL (6.3-8.2)
--- NOTE | 2019-02-14 16:54 | XR ---
EXAMINATION TYPE: XR chest 2V DATE OF EXAM: 02/14/2019 COMPARISON: 01/25/2019 HISTORY: Chest pain TECHNIQUE: 2 views FINDINGS: There is elevated left diaphragm. There is some atelectasis left lung base. There is coarse interstitial density in the right lung. There is no heart failure. There are chest leads. Bony thora x is intact. IMPRESSION: Chronic elevated left diaphragm with left basilar atelectasis unchanged. Mild pulmonary f ibrosis.
[2019-02-14 17:05] LABS: Potassium 5.8 mmol/L (3.5-5.1)
[2019-02-14] MEDS ORDERED: SODIUM CHLORIDE 0.9% 500 ML 500 ML IV STA (18:16)
--- NOTE | 2019-02-14 19:02 | CT ---
EXAMINATION TYPE: CT angio chest DATE OF EXAM: 02/14/2019 COMPARISON: 01/25/2019 HISTORY: SOB, hx of PE, lung ca CT DLP: 299.2 mGycm Automated exposure control for dose reduction was used. CONTRAST: Performed with IV Contrast, patient injected with 75cc mL of Isovue 370. There are 3-D post processed images. There is pulmonary emphysema. There is a 1.5 cm cavitating infiltrate right middle lobe. There is olga e bilateral patchy reticular nodular infiltrate in the mid and lower lung hinkle. There is significan t elevation of the left diaphragm with atelectasis left lung base. There is increased density in the mediastinum and at the pulmonary sandoval bilaterally with lymph nodes that measure up to 1.5 cm. There is narrowing of the proximal left pulmonary artery. Stenosis is approximate 50%. I see no filli ng defects of the pulmonary arteries. Thoracic aorta shows no aneurysm or dissection. There is occlus ion of the left lower lobe bronchus. There are some destructive changes involving L1 and T12 and T11 vertebral bodies with areas of ostial lysis and osteosclerosis. There is L1 25% compression fracture. There is left pleural effusion. There are numerous hypodense lesions throughout the liver that measure up to 6.2 cm. IMPRESSION: No evidence of pulmonary embolism. Mediastinal and bronchial adenopathy. Encasement of the left pulmo nary artery with luminal narrowing up to 50%. No evidence of pulmonary embolism. Obstruction of the left lower lobe bronchus with extensive consolidation and atelectasis left lung ba se. Left pleural effusion. Chest unchanged compared to recent exam. Hepatic metastatic disease unchanged. Evidence of osseous metastatic disease in the thoracic spine with pathologic compression fracture of L1 and areas of osteolysis. This is significantly progressed compared to recent CT scan.
[2019-02-14] MEDS ORDERED: methylPREDNISolone SOD SUCCI 125 MG/2 ML VIAL IV STA (19:42)
[2019-02-14] MEDS: SODIUM CHLORIDE 0.9% 1,000 ML IV SCH (20:02)
[2019-02-14] MEDS: ALBUTEROL NEBULIZED 2.5 MG/3 ML INHALATION SCH (20:52)
[2019-02-14] MEDS: IPRATROPIUM-ALBUTEROL 3 ML NEB INHALATION PRN (20:53)
[2019-02-15] MEDS: methylPREDNISolone SOD SUCCI 125 MG/2 ML VIAL IV SCH ×4 (00:06→17:32)
[2019-02-15] MEDS ORDERED: LISINOPRIL 10 MG TAB PO SCH (00:23)
[2019-02-15] MEDS: ATORVASTATIN 80 MG TAB PO SCH ×2 (00:30→21:13)
[2019-02-15] MEDS: CLOPIDOGREL 75 MG TAB PO SCH ×2 (00:30→21:13)
[2019-02-15] MEDS: METOPROLOL SUCCINATE (ER) 25 MG TAB.ER.24H PO SCH ×2 (00:30→21:13)
[2019-02-15 06:59] LABS: Glucose,Whole Blood 155 mg/dL (75-99)
[2019-02-15] MEDS: INSULIN ASPART (NovoLOG) 100 UNIT/ML VIAL SQ SCH ×4 (08:01→22:42)
[2019-02-15] MEDS: ENOXAPARIN 40 MG/0.4 ML SYRINGE SQ SCH (08:01)
[2019-02-15] MEDS: SODIUM CHLORIDE 0.9% 1,000 ML IV SCH ×2 (08:01→17:29)
[2019-02-15] MEDS: ALBUTEROL NEBULIZED 2.5 MG/3 ML INHALATION SCH ×4 (09:10→21:16)
[2019-02-15 12:03] LABS: Glucose,Whole Blood 138 mg/dL (75-99)
[2019-02-15 17:19] LABS: Glucose,Whole Blood 139 mg/dL (75-99)
--- NOTE | 2019-02-15 20:41 | P.HPIM ---
History of Present Illness H&P Date: 02/15/19 Chief Complaint: Short of breath History of presenting complaint: This is a pleasant [address] alexi Vazquez. 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 Patient also had squamosal non-small cell lung cancer that was surgically treated. Patient is a long-st anding smoker and does cut back. Patient for 3-4 days been having increasingly short of breath and significant amount of wheezing. Could not breathe at rest. No leg swelling. No fever no chills. No edema. Some cough is present. Admitted with COPD exacerbation. Started on bronchodilators and steroids. Patient's daughter the bedside. Patient is still smoking a few cigarettes day. In October 2017 patient had thoracoscopic upper lobectomy and mediastinal lymph node dissection. Positive for squamous cell carcinoma. Negative for disease in the lymph nodes ". PET scan was negative for the lymph nodes in the hilum. Review of systems: GEN.: Tired EYES: Some decreased vision to the left eye HEENT: None NECK: None RESPIRATORY: As above CARDIOVASCULAR: None GASTROINTESTINAL: None GENITOURINARY: None MUSCULOSKELETAL: None LYMPHATICS: None HEMATOLOGICAL: None PSYCHIATRY: None NEUROLOGICAL: None Social history: Averaged about 2 packs a day for about 50 years now down to a to few cigarettes a day. Son lives with him.. Used to work in construction. Physical examination: VITAL SIGNS: 97.7, 112, 30, 132/85, 93% room air GENERAL: BMI 21.4, propped up in bed, short of breath at rest. EYES: Pupils equal. Conjunctiva normal. HEENT: External appearance of nose and ears normal, oral cavity grossly normal. NECK: JVD not raised; masses not palpable. HEART: First and second heart sounds are normal; no edema. LUNGS:[ Respiratory rate increased, diminished breath sounds prolonged expiration wheezing, accessory muscles overbooking, not able to speak in full sentences. ABDOMEN: Soft, nontender, liver spleen not palpable, no masses palpable. PSYCH: [Alert and oriented x3; mood and affect slightly anxious l. NEUROLOGICAL: Cranial nerves grossly intact; no facial asymmetry, power and sensation grossly intact. LYMPHATICS: No lymph nodes palpable in the axilla and neck INVESTIGATIONS, reviewed in the clinical context: White count 9.9 hemoglobin 40.4 L for 33 potassium 5.8 creatinine 1.019 total bilirubin 1.8 proBNP 706 EKG tracing personally reviewed by me-normal sinus rhythm Chest CTA-emphysema, 1.5 tablet infiltrate right middle lobe bilateral patchy reticular nodular infiltrate in the mid and lower lung hinkle. Significant elevation of the left diaphragm. Lymphadenopathy. Nares of the proximal left pulmonary artery with about a 50% stenosis. Occlusion of the left lower lobe bronchus. Destructive changes involving L1 and T12 T11 vertebral bodies. Abdomen is 21% compression fracture. Numerous hypodense lesions throughout the liver. Assessment: -Acute severe COPD exacerbation and a smoker -Left upper lobe lobectomy or squamous cells lung cancer in 2018 -Abnormal computed tomography scan of the chest, strongly suggestive of metastatic disease -Coronary artery disease with prior DC -Hyperlipidemia -Essential hypertension -Chronic nicotine dependence patient cigarette smoker -Possible pneumonia Plan: Patient started on nebulized bronchodilators, IV steroids. Put the patient on IV ceftriaxone. Lovenox for DVT prophylaxis. Home medications resumed. Consultationsmade to oncology, pulmonary. Smoke cessation counseling: This was done with the patient. Nicotine patch is being given. More than 3 minutes was spent for this Past Medical History Past Medical History: Coronary Artery Disease (CAD), Cancer, CVA/TIA, Hyperlipidemia, Hypertension, Myocardial Infarction (DC) Additional Past Medical History / Comment(s): Non-small cell lung cancer of a squamous cell type stage I, history of CVA with some residual visual deficits involving the left eye occurring in August 2017. Last Myocardial Infarction Date:: 1998 History of Any Multi-Drug Resistant Organisms: None Reported Past Surgical History: Back Surgery, Heart Catheterization Past Anesthesia/Blood Transfusion Reactions: No Reported Reaction Past Psychological History: No Psychological Hx Reported Smoking Status: Current some day smoker Past Alcohol Use History: None Reported Additional Past Alcohol Use History / Comment(s): smoking since age 16, currently smoking 3 cigarettes per day. Past Drug Use History: None Reported - Past Family History Mother Family Medical History: No Reported History Father Additional Family Medical History / Comment(s): alcoholism Medications and Allergies Home Medications Medication Instructions Recorded Confirmed Type Atorvastatin [Lipitor] 80 mg PO HS #30 tab 09/22/17 02/14/19 Rx Metoprolol Succinate [Toprol XL] 25 mg PO HS 12/17/17 02/14/19 History Lisinopril [Zestril] 20 mg PO HS 02/10/19 02/14/19 History Clopidogrel [Plavix] 75 mg PO HS 02/14/19 02/14/19 History oxyCODONE-APAP 10-325MG [Percocet 1 tab PO Q6H PRN 02/14/19 02/14/19 History 10-325 mg] Allergies Allergy/AdvReac Type Severity Reaction Status Date / Time No Known Allergies Allergy Verified 02/14/19 17:50 Physical Exam Vitals: Vital Signs Temp Pulse Pulse Pulse Resp BP BP 02/15/19 06:40 97.9 F 76 18 167/89 02/15/19 00:00 110 H 24 02/14/19 22:00 98.0 F 90 20 150/80 02/14/19 21:33 98.7 F 100 24 120/87 02/14/19 21:02 96 02/14/19 20:53 99 02/14/19 20:06 98.7 F 105 H 20 119/83 02/14/19 19:30 112 H 24 156/90 02/14/19 19:00 115 H 24 130/78 02/14/19 18:30 122/75 02/14/19 18:00 98 18 134/85 02/14/19 17:30 89 20 105/73 02/14/19 17:00 98 18 126/82 02/14/19 16:30 89 18 119/85 02/14/19 16:29 99 02/14/19 16:13 100 02/14/19 16:00 102 H 21 131/95 02/14/19 15:52 02/14/19 15:45 110 H 30 H 02/14/19 15:43 97.7 F 112 H 30 H 132/85 Pulse Ox 02/15/19 06:40 94 L 02/15/19 00:00 02/14/19 22:00 97 02/14/19 21:33 98 02/14/19 21:02 02/14/19 20:53 99 02/14/19 20:06 99 02/14/19 19:30 98 02/14/19 19:00 97 02/14/19 18:30 02/14/19 18:00 98 02/14/19 17:30 98 02/14/19 17:00 99 02/14/19 16:30 99 02/14/19 16:29 02/14/19 16:13 02/14/19 16:00 97 02/14/19 15:52 96 02/14/19 15:45 02/14/19 15:43 93 L Intake and Output 02/14/19 02/15/19 02/15/19 22:59 06:59 14:59 Intake Total 300 Output Total 175 200 Balance -175 -200 300 Intake: Oral 300 Output: Urine 175 200 Other: Weight 65.771 kg 65.771 kg Results CBC & Chem 7: 02/14/19 16:15 02/14/19 16:15 Labs: Abnormal Lab Results - Last 24 Hours (Table) 02/14/19 02/14/19 02/15/19 Range/Units 16:15 16:15 06:55 Neutrophils # 8.3 H (1.3-7.7) k/uL Lymphocytes # 0.9 L (1.0-4.8) k/uL Sodium 131 L (137-145) mmol/L Potassium 5.8 H (3.5-5.1) mmol/L Carbon Dioxide 16 L (22-30) mmol/L Glucose 104 H (74-99) mg/dL POC Glucose (mg/dL) 155 H (75-99) mg/dL Calcium 8.2 L (8.4-10.2) mg/dL Total Bilirubin 1.8 H (0.2-1.3) mg/dL AST 62 H (17-59) U/L Alkaline Phosphatase 189 H (38-126) U/L Thrombosis Risk Factor Assmnt - Choose All That Apply Each Factor Represents 1 point: Abnormal pulmonary function (COPD) Each Risk Factor Represents 2 Points: Age 61-74 years, Malignancy Thrombosis Risk Factor Assessment Total Risk Factor Score: 5 Thrombosis Risk Factor Assessment Level: High Risk
[2019-02-15] MEDS: BUDESONIDE 1 MG/2 ML NEBU INHALATION SCH (21:16)
[2019-02-15 21:25] LABS: African American GFR (CKD) >90 (>60 ml/min/1.73 sqM); Anion Gap 8 mmol/L; Blood Urea Nitrogen 15 mg/dL (9-20); Calcium 7.7 mg/dL (8.4-10.2); Carbon Dioxide 19 mmol/L (22-30); Chloride 108 mmol/L (98-107); Glucose 130 mg/dL (74-99); Non-African American GFR(CKD) 81 (>60 ml/min/1.73 sqM); Potassium 4.7 mmol/L (3.5-5.1); Sodium 135 mmol/L (137-145)
[2019-02-15 21:29] LABS: Glucose,Whole Blood 136 mg/dL (75-99)
--- NOTE | 2019-02-15 21:51 | CONS ---
CONSULTATION DATE OF SERVICE: February 15, 2019. REASON FOR CONSULTATION: Lung carcinoma. CHIEF COMPLAINTS: Chest pain and shortness of breath. HISTORY OF PRESENT ILLNESS: Zhou is a very pleasant 68 years old gentleman very well known to me. He was initially diagnosed with lung carcinoma in August of 2017. At that time, he lost vision in his left eye and had a CT angiogram of the head and neck, which revealed a 2.7 cm mass in the left upper lobe. He had a brain MRI at that time, which was negative, then subsequently had a PET scan done in September of 2017 which revealed a suspicious 2.4 cm mass in the left upper lobe and enlarged prevascular node measuring 1.6 cm without suspicious uptake. Subsequently, the patient underwent bronchoscopy and biopsy of the left upper lobe mass, which was positive for squamous cell carcinoma of the lung and on December 20, 2017, he had left upper lobe lobectomy and regional node dissection. Pathology revealed a 3.3 cm invasive squamous cell carcinoma in the left upper lobe and 1 out of 15 nodes was positive. It was at L6 node and he had evidence of visceral invasion. There was evidence of invasion of the visceral pleura. The visceral margins were involved with malignancy. At that time, adjuvant chemotherapy and radiation therapy was recommended to him, but he declined treatment at that time. He did well until summer when he started to have progressive weakness, right leg pain, progressive dyspnea and weight loss. He lost over 25 pounds and he did have a repeat CT scan of the chest on 01/25/2019 which revealed small left pleural effusion. New mediastinal node partially encasing the left pulmonary artery, left hilar node, multiple suspicious liver lesions. There was about 13 liver lesions, the largest measuring up to 3 cm in size and also he has hypercalcemia. I did see the patient in the office recently and he did have a repeat PET scan in the outpatient setting which revealed diffuse metastatic disease and diffuse osseous metastases with lytic lesion in his spine and also there was a lesion starting to cause encroachment at the spinal cord at L4 level. He was referred to Radiation Oncology and he did start palliative radiation therapy and the plan was to repeat the liver biopsy as an outpatient to confirm recurrent breast carcinoma and to also obtain molecular studies on the liver biopsy. However, the patient came into the emergency department with significant shortness of breath, significant dyspnea and he did have a repeat CT scan of the chest which was negative for pulmonary embolus and he ended up being admitted to the hospital for further evaluation. He feels tired. He is short of breath. He has some chest pain and he continues to have right hip pain and back pain. He denies nausea or vomiting. He lost a lot of weight. He has generalized fatigue. No fever or chills. No headaches. No blurry vision. Of note, the patient did have a brain MRI in the outpatient setting, which was negative for metastatic disease. PAST MEDICAL HISTORY: As stated, he has a history of hyperlipidemia as stated above he has lung carcinoma. PAST SURGICAL HISTORY: Left upper lobe lobectomy, back surgery. FAMILY HISTORY: Negative for hematologic or oncologic disorders. SOCIAL HISTORY: He is a smoker. He smokes about half a pack of cigarettes daily. No alcohol abuse or substance abuse. ALLERGIES: There are no known drug allergies. HOME MEDICATION: Include Lipitor 80 mg daily, Percocet 10/325 mg daily. REVIEW OF SYSTEMS: As stated above in the history of present illness. PHYSICAL EXAMINATION: He is alert, oriented x3. He does not appear to be in acute distress at this time. Well developed, well nourished. His vital signs are temperature 98.8, afebrile, pulse 82 regular, respiration 18, blood pressure 147/84, pulse ox 96 percent on 2 L nasal cannula. HEENT: Normocephalic, atraumatic. No obvious icterus. NECK: Supple. Chest equal expansion bilaterally. LUNGS: Scattered rhonchi in all hinkle. HEART: Regular rate and rhythm. ABDOMEN: Soft. There is no obvious organomegaly or masses. Bowel sounds present. EXTREMITIES revealed no edema. SKIN: No significant bruise or ecchymosis. LYMPHATICS: No peripherally enlarged cervical or supraclavicular lymph node. MUSCULOSKELETAL: He has percussion tenderness in his lumbar spine and also there is pain upon moving his right leg. LAB DATA: WBC are 9.9, hemoglobin 14.4, hematocrit 42.0, platelets are 444. Sodium 131, potassium 5.8, chloride is 108, BUN is 16, creatinine 1.1. His calcium level is 8.2. IMPRESSION: 1. Clinical and radiographic picture highly suggestive of recurrent and metastatic squamous cell carcinoma of his lung. 2. Diffuse bone metastases including multiple lytic lesions on his spine and the lesion is starting to cause encasement involving the spinal canal at the level of L4 as stated above. RECOMMENDATIONS: 1. The patient was supposed to have a liver biopsy in the outpatient setting. We will schedule it to be done as an inpatient. 2. May continue palliative radiation therapy to his L4 level. 3. The patient calcium level now has normalized. He did have hypercalcemia recently and he received IV hydration and Zometa in the outpatient setting 10 days ago. 4. Continue with current pain medication regimen. 5. Reconsult Radiation Oncology to resume his palliative radiation therapy. Thank you very much. MMODL / IJN: [id number] /
[2019-02-16] MEDS: methylPREDNISolone SOD SUCCI 40 MG/ML 1 ML VIAL IV SCH ×4 (00:03→23:05)
[2019-02-16] MEDS: oxyCODONE-APAP 10-325MG 1 EACH TAB PO PRN ×3 (03:02→17:06)
[2019-02-16] MEDS: IPRATROPIUM-ALBUTEROL 3 ML NEB INHALATION PRN (03:08)
[2019-02-16] MEDS: SODIUM CHLORIDE 0.9% 1,000 ML IV SCH ×3 (03:59→20:49)
[2019-02-16] MEDS: BUDESONIDE 1 MG/2 ML NEBU INHALATION SCH ×2 (07:26→19:35)
[2019-02-16] MEDS: ALBUTEROL NEBULIZED 2.5 MG/3 ML INHALATION SCH ×4 (07:26→19:35)
[2019-02-16 07:27] LABS: Glucose,Whole Blood 121 mg/dL (75-99)
[2019-02-16] MEDS: INSULIN ASPART (NovoLOG) 100 UNIT/ML VIAL SQ SCH ×4 (07:55→20:47)
[2019-02-16] MEDS: ENOXAPARIN 40 MG/0.4 ML SYRINGE SQ SCH (07:57)
[2019-02-16 11:27] LABS: Glucose,Whole Blood 120 mg/dL (75-99)
--- NOTE | 2019-02-16 12:40 | P.CNPUL ---
History of Present Illness Consult date: 02/15/19 Reason for consult: dyspnea, COPD History of present illness: 68-year-old male patient with known history of metastatic squamous cell carcinoma. The patient is coming in for shortness of breath and his presentation currently is typical of an acute COPD exacerbation. Nevertheless, the patient is lung history dates back in 2017 and back in November 2017 the patient was found to have a left upper lobe mass that was biopsied and was consistent with squamous cell carcinoma. The patient underwent a PET scan that showed localized disease. Underwent a left upper lobe resection and the postsurgical staging was T2 N2 as the patient had lymph node positive and evidence of vessel invasion. There were several margins were involved with malignancy. Adjuvant chemotherapy and radiation therapy was recommended and the patient declined. Subsequently progressed and he developed metastatic disease. He has lost more than 25 pounds. His most recent PET scan showing metastatic disease with skeletal metastases involving the cervical lumbar and thoracic spine addition to hepatitic metastases. The patient is currently receiving palliative radiation therapy to his back. In terms of his breathing, is more short of breath and bronchospastic and wheezy. Angiogram was done and showed no evidence of any pulmonary embolism and the patient was found to have extensive metastatic disease with enlarging left perihilar mass with encasing of the left pulmonary artery in addition to skeletal metastases involving L1 and T12 and T11 and 25% compression fraction of L1. The patient also has a tiny left-sided pleural effusion. There was also emphysema. A 1.5 cm cavitating infiltrate in the right middle lobe as well as also present. Review of Systems Constitutional: Reports fatigue, Reports weakness, Reports weight loss Eyes: left decreased vision, left loss of vision, denies blurred vision, denies bulging eye, denies diplopia, denies discharge, denies dry eye, denies irritat ion, denies itching, denies pain, denies photophobia, denies loss of peripheral vision, denies tunnel vision/blind spots Ears: deny: decreased hearing, ear discharge, earache, tinnitus Ears, nose, mouth and throat: Reports as per HPI Breasts: absent: as per HPI, gynecomastia Cardiovascular: Reports decreased exercise tolerance, Reports dyspnea on exertion Respiratory: Reports cough, Reports dyspnea, Reports wheezing Gastrointestinal: Reports as per HPI Genitourinary: Reports as per HPI Musculoskeletal: Reports as per HPI, Reports low back pain Musculoskeletal: absent: ankle pain, ankle stiffness, ankle swelling, as per HPI, elbow pain, elbow stiffness, elbow swelling, foot pain, foot stiffness, foot swelling, hand pain, hand stiffness, hand swelling, hip pain, hip stiffness, hip swelling, knee pain, knee stiffness, knee swelling, shoulder pain, shoulder stiffness, shoulder swelling, wrist pain, wrist stiffness, wrist swelling Integumentary: Reports as per HPI Neurological: Reports as per HPI Endocrine: Reports as per HPI Hematologic/Lymphatic: Reports as per HPI Allergic/Immunologic: Reports as per HPI Past Medical History Past Medical History: Coronary Artery Disease (CAD), Cancer, CVA/TIA, Hyperlipidemia, Hypertension, Myocardial Infarction (HI) Additional Past Medical History / Comment(s): 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, history of CVA with some residual visual deficits involving the left eye occurring in August 2017. Last Myocardial Infarction Date:: 1998 History of Any Multi-Drug Resistant Organisms: None Reported Past Surgical History: Back Surgery, Heart Catheterization Past Anesthesia/Blood Transfusion Reactions: No Reported Reaction Past Psychological History: No Psychological Hx Reported Smoking Status: Current some day smoker Past Alcohol Use History: None Reported Additional Past Alcohol Use History / Comment(s): smoking since age 16, currently smoking 3 cigarettes per day. Past Drug Use History: None Reported - Past Family History Mother Family Medical History: No Reported History Father Additional Family Medical History / Comment(s): alcoholism Medications and Allergies Home Medications Medication Instructions Recorded Confirmed Type Atorvastatin [Lipitor] 80 mg PO HS #30 tab 09/22/17 02/14/19 Rx Metoprolol Succinate [Toprol XL] 25 mg PO HS 12/17/17 02/14/19 History Lisinopril [Zestril] 20 mg PO HS 02/10/19 02/14/19 History Clopidogrel [Plavix] 75 mg PO HS 02/14/19 02/14/19 History oxyCODONE-APAP 10-325MG [Percocet 1 tab PO Q6H PRN 02/14/19 02/14/19 History 10-325 mg] Allergies Allergy/AdvReac Type Severity Reaction Status Date / Time No Known Allergies Allergy Verified 02/14/19 17:50 Physical Exam Vitals: Vital Signs Temp Pulse Pulse Resp BP Pulse Ox 02/16/19 11:15 76 02/16/19 11:08 76 02/16/19 07:41 80 02/16/19 07:27 72 02/16/19 07:00 97.6 F 76 16 144/85 97 02/16/19 03:24 80 02/16/19 03:08 75 02/16/19 00:07 160/96 02/15/19 20:35 98.4 F 100 24 179/105 97 02/15/19 14:35 98.8 F 82 18 147/84 96 Intake and Output 02/15/19 02/16/19 02/16/19 22:59 06:59 14:59 Intake Total 300 Output Total 225 325 300 Balance -225 -325 0 Intake: Oral 300 Output: Urine 225 325 300 Other: Voiding Method Toilet Urinal The patient appeared well nourished and normally developed. Vital signs as documented. Head exam is unremarkable. No scleral icterus or corneal arcus noted. Neck is without jugular venous distension, thyromegaly, or carotid bruits. Carotid upstrokes are brisk bilaterally. Lungs are diminished bilaterally along with scattered expiratory wheezes throughout the lung hinkle bilaterally.Cardiac exam reveals the PMI to be normally sized and situated. Rhythm is regular. First and second heart sounds normal. No murmurs, rubs or gallops. Abdominal exam reveals normal bowel sounds, no masses, no organomegaly and no aortic enlargement. Extremities are nonedematous and both femoral and pedal pulses are normal..Examination of the skin revealed no evidence of signif icant rashes, suspicious appearing nevi or other concerning lesions.neurologically the patient is awake and alert and there is no focal neurological deficit Results - Laboratory Findings CBC and BMP: 02/14/19 16:15 02/15/19 20:36 PT/INR, D-dimer PT 10.9 sec (9.0-12.0) 02/14/19 16:15 INR 1.0 (<1.2) 02/14/19 16:15 Abnormal lab findings: Abnormal Labs 02/14/19 02/14/19 02/15/19 16:15 16:15 06:55 Neutrophils # 8.3 H Lymphocytes # 0.9 L Sodium 131 L Potassium 5.8 H Chloride Carbon Dioxide 16 L Glucose 104 H POC Glucose (mg/dL) 155 H Calcium 8.2 L Total Bilirubin 1.8 H AST 62 H Alkaline Phosphatase 189 H 12/21/19 12/21/19 12/21/19 11:52 17:17 20:36 Neutrophils # Lymphocytes # Sodium 135 L Potassium Chloride 108 H Carbon Dioxide 19 L Glucose 130 H POC Glucose (mg/dL) 138 H 139 H Calcium 7.7 L Total Bilirubin AST Alkaline Phosphatase 02/15/19 02/16/19 02/16/19 21:26 07:16 11:21 Neutrophils # Lymphocytes # Sodium Potassium Chloride Carbon Dioxide Glucose POC Glucose (mg/dL) 136 H 121 H 120 H Calcium Total Bilirubin AST Alkaline Phosphatase - Diagnostic Findings Chest x-ray: image reviewed CT scan - chest: image reviewed Assessment and Plan Assessment: 1 acute COPD exacerbation with secondary shortness of breath 2 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
--- NOTE | 2019-02-16 12:58 | P.PN ---
Subjective Progress Note Date: 02/16/19 on 02/16/2019 the patient is seen me in follow-up. The patient is slightly less short of breath compared to yesterday. Less bronchospastic and wheezy compared to yesterday. Limited cough and congestion. He is aching all over especially in his back. He is taking Percocet for that. He was seen by medical oncology yesterday by Dr. Tomlinson. No new complaints. No nausea. No vomiting. No diarrhea. No abdominal pain. He has poor appetite and he has lost approximately 25 pounds. No hemoptysis. Objective - Vital Signs Vital signs: Vital Signs Temp 97.6 F 02/16/19 07:00 Pulse 76 02/16/19 11:15 Resp 16 02/16/19 07:00 BP 144/85 02/16/19 07:00 Pulse Ox 97 02/16/19 07:00 Intake & Output 02/15/19 02/16/19 02/16/19 18:59 06:59 18:59 Intake Total 600 600 Output Total 550 300 Balance 600 -550 300 Intake: Oral 600 600 Output: Urine 550 300 Other: Voiding Method Toilet Urinal # Voids 300 - Exam The patient appeared well nourished and normally developed. Vital signs as documented. Head exam is unremarkable. No scleral icterus or corneal arcus noted. Neck is without jugular venous distension, thyromegaly, or carotid bruits. Carotid upstrokes are brisk bilaterally. Lungs are diminished bilaterally along with scattered expiratory wheezes throughout the lung hinkle bilaterally.Cardiac exam reveals the PMI to be normally sized and situated. Rhythm is regular. First and second heart sounds normal. No murmurs, rubs or gallops. Abdominal exam reveals normal bowel sounds, no masses, no organomegaly and no aortic enlargement. Extremities are nonedematous and both femoral and pedal pulses are normal..Examination of the skin revealed no evidence of significant rashes, suspicious appearing nevi or other concerning le sions.neurologically the patient is awake and alert and there is no focal neurological deficit - Labs CBC & Chem 7: 02/14/19 16:15 02/15/19 20:36 Labs: Abnormal Lab Results - Last 24 Hours (Table) 02/15/19 02/15/19 02/15/19 Range/Units 17:17 20:36 21:26 Sodium 135 L (137-145) mmol/L Chloride 108 H (98-107) mmol/L Carbon Dioxide 19 L (22-30) mmol/L Glucose 130 H (74-99) mg/dL POC Glucose (mg/dL) 139 H 136 H (75-99) mg/dL Calcium 7.7 L (8.4-10.2) mg/dL 02/16/19 02/16/19 Range/Units 07:16 11:21 Sodium (137-145) mmol/L Chloride (98-107) mmol/L Carbon Dioxide (22-30) mmol/L Glucose (74-99) mg/dL POC Glucose (mg/dL) 121 H 120 H (75-99) mg/dL Calcium (8.4-10.2) mg/dL Assessment and Plan Assessment: 1 acute COPD exacerbation with secondary shortness of breath 2 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
[2019-02-16 17:06] LABS: Glucose,Whole Blood 120 mg/dL (75-99)
[2019-02-16] MEDS: METOPROLOL SUCCINATE (ER) 25 MG TAB.ER.24H PO SCH (20:30)
[2019-02-16] MEDS: ATORVASTATIN 80 MG TAB PO SCH (20:30)
[2019-02-16] MEDS: CLOPIDOGREL 75 MG TAB PO SCH (20:30)
[2019-02-16 20:42] LABS: Glucose,Whole Blood 138 mg/dL (75-99)
--- NOTE | 2019-02-16 22:23 | P.PN ---
Progress Note - Text Progress Note Date: 02/16/19 Chief Complaint: Short of breath History of presenting complaint: This is a pleasant [address] alexi Vazquez. 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 Patient also had squamosal non-small cell lung cancer that was surgically treated. Patient is a long- standing smoker and does cut back. Patient for 3-4 days been having increasingly short of breath and significant amount of wheezing. Could not breathe at rest. No leg swelling. No fever no chills. No edema. Some cough is present. Admitted with COPD exacerbation. Started on bronchodilators and steroids. Patient's daughter the bedside. Patient is still smoking a few cigarettes day. In October 2017 patient had thoracoscopic upper lobectomy and mediastinal lymph node dissection. Positive for squamous cell carcinoma. Negative for disease in the lymph nodes ". 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 admitted with COPD exacerbation Today-sitting up, still short of breath and wheezing. Short of breath at rest. Some cough. Did tolerate some diet Review of systems: Was done for constitutional, cardiovascular, GI, pulmonary. relevant finding as above Active Medications Albuterol Sulfate (Ventolin Nebulized) 2.5 mg INHALATION RT-QID [facility] Last Admin: 02/16/19 19:35 Dose: 2.5 mg Documented by: Albuterol/Ipratropium (Duoneb 0.5 Mg-3 Mg/3 Ml Soln) 3 ml INHALATION RT-Q4H PRN PRN Reason: Shortness Of Breath Or Wheezing Last Admin: 02/16/19 03:08 Dose: 3 ml Documented by: Atorvastatin Calcium (Lipitor) 80 mg PO [facility] Last Admin: 02/16/19 20:30 Dose: 80 mg Documented by: Budesonide (Pulmicort) 1 mg INHALATION RT-BID [facility] Last Admin: 02/16/19 19:35 Dose: 1 mg Documented by: Clopidogrel Bisulfate (Plavix) 75 mg PO HS [facility] Last Admin: 02/16/19 20:30 Dose: 75 mg Documented by: Enoxaparin Sodium (Lovenox) 40 mg SQ DAILY [facility] Last Admin: 02/16/19 07:57 Dose: 40 mg Documented by: Sodium Chloride (Saline 0.9%) 1,000 mls @ 100 mls/hr IV .Q10H [facility] Last Admin: 02/16/19 20:49 Dose: 100 mls/hr Documented by: Insulin Aspart (Novolog) 0 unit SQ ACHS [facility]; Protocol Last Admin: 02/16/19 20:47 Dose: 1 unit Documented by: Methylprednisolone Sodium Succinate (Solu-Medrol) 40 mg IV Q8HR [facility] Last Admin: 02/16/19 17:06 Dose: 40 mg Documented by: Metoprolol Succinate (Toprol Xl) 25 mg PO HS [facility] Last Admin: 02/16/19 20:30 Dose: 25 mg Documented by: Oxycodone/Acetaminophen (Percocet 10-325) 1 each PO Q6H PRN PRN Reason: Pain Last Admin: 02/16/19 17:06 Dose: 1 each Documented by: Physical examination: VITAL SIGNS: 97.6, 76, 16, 144/85, 97% on 2 L GENERAL: sitting up, short of breath at restt. EYES: Pupils equal. Conjunctiva normal. HEENT: External appearance of nose and ears normal, oral cavity grossly normal. NECK: JVD not raised; masses not palpable. HEART: First and second heart sounds are normal; no edema. LUNGS:[ Respiratory rate increased, diminished breath sounds prolonged expiration wheezing, ABDOMEN: Soft, nontender, liver spleen not palpable, no masses palpable. PSYCH: [Alert and oriented x3; mood and affect slightly anxious l. NEUROLOGICAL: Cranial nerves grossly intact; no facial asymmetry, power and sensation grossly intact. LYMPHATICS: No lymph nodes palpable in the axilla and neck INVESTIGATIONS, reviewed in the clinical context: White count 9.9 hemoglobin 40.4 L for 33 potassium 5.8 creatinine 1.019 total bilirubin 1.8 proBNP 706 EKG tracing personally reviewed by me-normal sinus rhythm Chest CTA-emphysema, 1.5 tablet infiltrate right middle lobe bilateral patchy re ticular nodular infiltrate in the mid and lower lung hinkle. Significant elevation of the left diaphragm. Lymphadenopathy. Nares of the proximal left pulmonary artery with about a 50% stenosis. Occlusion of the left lower lobe bronchus. Destructive changes involving L1 and T12 T11 vertebral bodies. Abdomen is 21% compression fracture. Numerous hypodense lesions throughout the liver. 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 -Coronary artery disease with prior AK -Hyperlipidemia -Essential hypertension -Chronic nicotine dependence patient cigarette smoker -Possible pneumonia Plan: continue withDuoNeb, Solu-Medrol, inhaled steroids. Slow to respond. Care discussed with the patient.radiation oncology to be really consulted for palliation treatment. Being followed by oncology and pulmonary.
[2019-02-17] MEDS: oxyCODONE-APAP 10-325MG 1 EACH TAB PO PRN ×4 (00:35→19:44)
[2019-02-17 07:03] LABS: Glucose,Whole Blood 170 mg/dL (75-99)
[2019-02-17] MEDS: BUDESONIDE 1 MG/2 ML NEBU INHALATION SCH ×2 (07:15→19:31)
[2019-02-17] MEDS: ALBUTEROL NEBULIZED 2.5 MG/3 ML INHALATION SCH (07:15)
[2019-02-17] MEDS: methylPREDNISolone SOD SUCCI 40 MG/ML 1 ML VIAL IV SCH ×3 (07:39→23:24)
[2019-02-17] MEDS: INSULIN ASPART (NovoLOG) 100 UNIT/ML VIAL SQ SCH ×4 (07:40→20:54)
[2019-02-17] MEDS: ENOXAPARIN 40 MG/0.4 ML SYRINGE SQ SCH (07:40)
--- NOTE | 2019-02-17 08:00 | P.PN ---
Subjective this is a pleasant 68 years old male with past medical history of small cell lung cancer with metastasis to the thoracic spine and pathological fracture of L1, history of stroke and left eye blindness. Presents with acute COPD exacerbation and his been evaluated by a toll booth operator. Patient is controlled currently on steroids and IV hydration. also he had a CT angiogram of the thorax showing obstruction of the left lower bronchus with atelectasis and left pleural effusion but no pulmonary embolism. Patient is aware of his diagnosis of cancer, patient is aware of his other medical problem, is not on home oxygen. He states that his breathing is improving by 30%, with little cough and occasional white phlegm but no chest pain. His back pain is controlled. He has regular bowel movements. And no other complaints.vital signs stable and he is saturating 98% on 2 L and sugar is controlled. radiation oncologist been consulted and is pending. restart his home lisinopril for blood pressure on the high side. Discussed with the staff Review of systems CONSTITUTIONAL: No fever, no malaise, no fatigue. HEENT: No recent visual problems or hearing problems. Denied any sore throat. CARDIOVASCULAR: no palpitations, no syncope. PULMONARY: no hemoptysis. GASTROINTESTINAL: No diarrhea, no nausea, no vomiting, no abdominal pain. Normoactive bowel sounds. NEUROLOGICAL: No headaches, no weakness, no numbness. HEMATOLOGICAL: Denies any bleeding or petechiae. GENITOURINARY: Denies any burning micturition, frequency, or urgency. MUSCULOSKELETAL/RHEUMATOLOGICAL: Denies any joint pain, swelling, or any muscle pain. ENDOCRINE: Denies any polyuria or polydipsia. Active Medications Generic Name Dose Route Start Last Admin Trade Name Randallq PRN Reason Stop Dose Admin Albuterol Sulfate 2.5 mg 02/14/19 20:00 02/17/19 07:15 Ventolin Nebulized INHALATION 2.5 mg RT-QID [facility] Administration Albuterol/Ipratropium 3 ml 02/14/19 19:42 02/16/19 03:08 Duoneb 0.5 Mg-3 Mg/3 Ml Soln INHALATION 3 ml RT-Q4H PRN Administration Shortness Of Breath Or Wheezing Atorvastatin Calcium 80 mg 02/15/19 00:23 02/16/19 20:30 Lipitor PO 80 mg HS [facility] Administration Budesonide 1 mg 02/15/19 20:26 02/17/19 07:15 Pulmicort INHALATION 1 mg RT-BID [facility] Administration Calcium Carbonate 1 each 02/17/19 12:30 Oscal 500+D PO TID-W/MEALS [facility] Clopidogrel Bisulfate 75 mg 02/15/19 00:23 02/16/19 20:30 Plavix PO 75 mg HS [facility] Administration Enoxaparin Sodium 40 mg 02/15/19 09:00 02/17/19 07:40 Lovenox SQ Not Given DAILY [facility] Famotidine 20 mg 02/17/19 09:00 Pepcid IV Q12HR [facility] Ceftriaxone Sodium 1 gm/ 50 mls @ 100 mls/hr 02/16/19 22:30 02/16/19 23:05 Sodium Chloride IVPB 100 mls/hr Q24H [facility] Administration Insulin Aspart 0 unit 02/15/19 07:30 02/17/19 07:40 Novolog SQ 3 unit ACHS [facility] Administration Protocol Lisinopril 20 mg 02/17/19 21:00 Zestril PO HS [facility] Methylprednisolone Sodium Succinate 40 mg 02/16/19 00:00 02/17/19 07:39 Solu-Medrol IV 40 mg Q8HR [facility] Administration Metoprolol Succinate 25 mg 02/15/19 00:24 02/16/19 20:30 Toprol Xl PO 25 mg HS [facility] Administration Oxycodone/Acetaminophen 1 each 02/15/19 00:19 02/17/19 05:51 Percocet 10-325 PO 1 each Q6H PRN Administration Pain Objective - Vital Signs Vital signs: Vital Signs Temp 98.2 F 02/17/19 05:48 Pulse 76 02/17/19 07:33 Resp 16 02/17/19 05:48 BP 151/94 02/17/19 06:51 Pulse Ox 98 02/17/19 07:15 Intake & Output 02/16/19 02/17/19 02/17/19 18:59 06:59 18:59 Intake Total 900 Output Total 300 600 Balance 600 -600 Intake: Oral 900 Output: Urine 300 600 Other: Voiding Method Toilet Urinal # Voids 1 0 # Bowel Movements 0 - Exam GENERAL: The patient is alert and oriented x3, not in any acute distress. Well developed, well nourished. HEENT: Pupils are round and equally reacting to light. EOMI. No scleral icterus. No conjunctival pallor. Normocephalic, atraumatic. No pharyngeal erythema. No thyromegaly. CARDIOVASCULAR: S1 and S2 present. No murmurs, rubs, or gallops. -PULMONARY: Chest is clear to auscultation, scattered wheezing with prolonged expiration ABDOMEN: Soft, nontender, nondistended, normoactive bowel sounds. No palpable organomegaly. MUSCULOSKELETAL: No joint swelling or deformity. EXTREMITIES: No cyanosis, clubbing, or pedal edema. NEUROLOGICAL: Gross neurological examination did not reveal any focal deficits. SKIN: No rashes. no petechiae. - Labs CBC & Chem 7: 02/14/19 16:15 02/15/19 20:36 Labs: Abnormal Lab Results - Last 24 Hours (Table) 02/16/19 02/16/19 02/16/19 Range/Units 11:21 16:56 20:40 POC Glucose (mg/dL) 120 H 120 H 138 H (75-99) mg/dL 02/17/19 Range/Units 07:00 POC Glucose (mg/dL) 170 H (75-99) mg/dL Assessment and Plan Assessment: -Acute severe COPD exacerbation with smoker, slow to respond -Left upper lobe lobectomy or squamous cells lung cancer in 2018 -obstruction of the left lower bronchus with atelectasis and left pleural effusion -meticulous cystic lesions to the thoracic spine with pathological fracture of L1, radiation oncologist is been consulted -history ofCoronary artery disease with prior [place] -Hyperlipidemia -Essential hypertension -Chronic nicotine dependence patient cigarette smoker Plan: this is a pleasant 68 years old male who presents with COPD and metastatic lesion to the spine. Continue with steroids and encourage hydration. Continue with pain management. Follow-up radiation oncology. Incentive spirometry. We'll see if the patient might benefit from a brace.restart lisinopril and follow blood pressure. At calcium-vitamin D Labs and medication were reviewed.. Continue same treatment. Continue with symptomatic treatment. Resume home medication. Monitor lytes and vitals. DVT and GI prophylaxis. Further recommendations of the clinical course of the patient DVT prophylaxis: Subcutaneous Lovenox GI Prophylaxis: Pepcid PT/OT: Pending Prognosis is guarded
[2019-02-17 08:07] LABS: Basophils % (A) 0 %; Eosinophils # (A) 0.1 k/uL (0-0.7); Eosinophils % (A) 0 %; HCT 38.1 % (39.0-53.0); HGB 12.6 gm/dL (13.0-17.5); Lymphocytes # (A) 0.5 k/uL (1.0-4.8); Lymphocytes % (A) 3 %; MCH 30.6 pg (25.0-35.0); MCV 92.6 fL (80.0-100.0); Mean Platelet Volume 6.9; Monocytes # (A) 0.6 k/uL (0-1.0); Monocytes % (A) 4 %; Neutrophils # (A) 13.7 k/uL (1.3-7.7); Neutrophils % (A) 92 %; Platelet Count 479 k/uL (150-450); RBC 4.12 m/uL (4.30-5.90); WBC 14.8 k/uL (3.8-10.6)
[2019-02-17 08:22] LABS: ALT 23 U/L (4-49); AST 63 U/L (17-59); African American GFR (CKD) >90 (>60 ml/min/1.73 sqM); Albumin 3.3 g/dL (3.5-5.0); Alkaline Phosphatase 154 U/L (38-126); Anion Gap 8 mmol/L; Blood Urea Nitrogen 16 mg/dL (9-20); Calcium 7.6 mg/dL (8.4-10.2); Carbon Dioxide 19 mmol/L (22-30); Chloride 110 mmol/L (98-107); Glucose 131 mg/dL (74-99); Non-African American GFR(CKD) 84 (>60 ml/min/1.73 sqM); Potassium 4.9 mmol/L (3.5-5.1); Sodium 137 mmol/L (137-145); Total Bilirubin 0.6 mg/dL (0.2-1.3); Total Protein 6.4 g/dL (6.3-8.2)
[2019-02-17] MEDS ORDERED: FAMOTIDINE 20 MG/2 ML VIAL IV SCH (09:00)
--- NOTE | 2019-02-17 10:57 | P.PN ---
Subjective Progress Note Date: 02/17/19 Principal diagnosis: Acute exacerbation of COPD On 02/17/2019 patient seen in follow-up on medical surgical floor. He states his breathing is somewhat improved, still congested and wheezy, has a loose productive cough, on 2 L of oxygen his pulse ox 98%, patient is afebrile, he modynamically stable, he is on a combination of IV steroids nebulized bronchodilators and antibiotics. No fever or chills, he states he saw Dr. Tomlinson and discussed that she would like to resume treatment for his metastatic lung cancer. Objective - Vital Signs Vital signs: Vital Signs Temp 98.2 F 02/17/19 05:48 Pulse 76 02/17/19 07:33 Resp 16 02/17/19 05:48 BP 151/94 02/17/19 06:51 Pulse Ox 98 02/17/19 07:15 Intake & Output 02/16/19 02/17/19 02/17/19 18:59 06:59 18:59 Intake Total 900 240 Output Total 300 600 Balance 600 -600 240 Intake: Oral 900 240 Output: Urine 300 600 Other: Voiding Method Toilet Urinal # Voids 1 0 # Bowel Movements 0 - Exam GENERAL EXAM: Alert, less than, 68-year-old white male, on 2 L of oxygen with a pulse ox of 90% comfortable in no apparent distress. HEAD: Normocephalic/atraumatic. EYES: Normal reaction of pupils, equal size. Conjunctiva pink, sclera white. NOSE: Clear with pink turbinates. THROAT: No erythema or exudates. NECK: No masses, no JVD, no thyroid enlargement, no adenopathy. CHEST: No chest wall deformity. Symmetrical expansion. LUNGS: Equal air entry with diffuse rhonchi, and wheezing CVS: Regular rate and rhythm, normal S1 and S2, no gallops, no murmurs, no rubs ABDOMEN: Soft, nontender. No hepatosplenomegaly, normal bowel sounds, no guarding or rigidity. EXTREMITIES: No clubbing, no edema, no cyanosis, 2+ pulses and upper and lower extremities. MUSCULOSKELETAL: Muscle strength and tone normal. SPINE: No scoliosis or deformity SKIN: No rashes CENTRAL NERVOUS SYSTEM: Alert and oriented -3. No focal deficits, tone is normal in all 4 extremities. PSYCHIATRIC: Alert and oriented -3. Appropriate affect. Intact judgment and insight. - Labs CBC & Chem 7: 02/17/19 07:24 02/17/19 07:24 Labs: Abnormal Lab Results - Last 24 Hours (Table) 02/16/19 02/16/19 02/16/19 Range/Units 11:21 16:56 20:40 WBC (3.8-10.6) k/uL RBC (4.30-5.90) m/uL Hgb (13.0-17.5) gm/dL Hct (39.0-53.0) % Plt Count (150-450) k/uL Neutrophils # (1.3-7.7) k/uL Lymphocytes # (1.0-4.8) k/uL Chloride (98-107) mmol/L Carbon Dioxide (22-30) mmol/L Glucose (74-99) mg/dL POC Glucose (mg/dL) 120 H 120 H 138 H (75-99) mg/dL Calcium (8.4-10.2) mg/dL AST (17-59) U/L Alkaline Phosphatase (38-126) U/L Albumin (3.5-5.0) g/dL 02/17/19 02/17/19 02/17/19 Range/Units 07:00 07:24 07:24 WBC 14.8 H (3.8-10.6) k/uL RBC 4.12 L (4.30-5.90) m/uL Hgb 12.6 L (13.0-17.5) gm/dL Hct 38.1 L (39.0-53.0) % Plt Count 479 H (150-450) k/uL Neutrophils # 13.7 H (1.3-7.7) k/uL Lymphocytes # 0.5 L (1.0-4.8) k/uL Chloride 110 H (98-107) mmol/L Carbon Dioxide 19 L (22-30) mmol/L Glucose 131 H (74-99) mg/dL POC Glucose (mg/dL) 170 H (75-99) mg/dL Calcium 7.6 L (8.4-10.2) mg/dL AST 63 H (17-59) U/L Alkaline Phosphatase 154 H (38-126) U/L Albumin 3.3 L (3.5-5.0) g/dL Assessment and Plan Plan: Assessment #1. Acute exacerbation of COPD secondary dyspnea #2. Metastatic small cell carcinoma of the lung with diffuse metastasis to the spine and bone, currently receiving palliative radiation therapy to the spine #3. 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 Hyperlipidemia #5. Coronary artery disease #6. Hypertension #7. Generalized weakness Plan: Continue current medical treatment, IV steroids, antibiotics, Pulmicort and will add Perforomist. Patient is improving, encouraged patient to sit up in the chair, still congested and bronchospastic, not quite back to baseline. We'll continue to follow I performed a history & physical examination of the patient and discussed their management with my nurse practitioner, Beverly Marion. I reviewed the nurse practitioner's note and agree with the documented findings and plan of care. Lung sounds are positive for diffuse wheezes and rhonchi throughout the lung hinkle. The findings and the impression was discussed with the patient. I attest to the documentation by the nurse practitioner. Time with Patient: Less than 30
[2019-02-17] MEDS: IPRATROPIUM-ALBUTEROL 3 ML NEB INHALATION SCH ×3 (11:05→19:31)
[2019-02-17 11:57] LABS: Glucose,Whole Blood 122 mg/dL (75-99)
[2019-02-17] MEDS: CALCIUM CARB-VIT D 500MG-200UN 1 EACH TAB PO SCH ×2 (13:15→16:55)
--- NOTE | 2019-02-17 14:24 | P.PN ---
Subjective Progress Note Date: 02/17/19 Principal diagnosis: metastatic NSCLC, squamous cell In f/u today pt states breathing is less labored but still challenging, no other acute c/o. Objective - Vital Signs Vital signs: Vital Signs Temp 97.6 F 02/17/19 12:51 Pulse 83 02/17/19 12:51 Resp 17 02/17/19 12:51 BP 174/94 02/17/19 12:51 Pulse Ox 98 02/17/19 12:51 Intake & Output 02/16/19 02/17/19 02/17/19 18:59 06:59 18:59 Intake Total 900 240 Output Total 300 600 Balance 600 -600 240 Intake: Oral 900 240 Output: Urine 300 600 Other: Voiding Method Toilet Toilet Urinal Urinal # Voids 1 0 # Bowel Movements 0 - Constitutional General appearance: Present: cooperative, mild distress, thin - EENT EENT Comment(s): mouth and lips dry Eyes: Present: anicteric sclerae, EOMI ENT: Present: hearing grossly normal - Respiratory Respiratory: bilateral: diminished - Cardiovascular Rhythm: regular Heart sounds: normal: S1, S2 Abnormal Heart Sounds: Absent: systolic murmur, diastolic murmur, rub, S3 Gallop, S4 Gallop, click, other - Peripheral edema leg Peripheral Edema: bilateral: None - Gastrointestinal General gastrointestinal: Present: normal bowel sounds, soft - Musculoskeletal Musculoskeletal: Present: generalized weakness - Psychiatric Psychiatric: Present: A&O x's 3, appropriate affect - Labs CBC & Chem 7: 02/17/19 07:24 02/17/19 07:24 Labs: Abnormal Lab Results - Last 24 Hours (Table) 02/16/19 02/16/19 02/17/19 Range/Units 16:56 20:40 07:00 WBC (3.8-10.6) k/uL RBC (4.30-5.90) m/uL Hgb (13.0-17.5) gm/dL Hct (39.0-53.0) % Plt Count (150-450) k/uL Neutrophils # (1.3-7.7) k/uL Lymphocytes # (1.0-4.8) k/uL Chloride (98-107) mmol/L Carbon Dioxide (22-30) mmol/L Glucose (74-99) mg/dL POC Glucose (mg/dL) 120 H 138 H 170 H (75-99) mg/dL Calcium (8.4-10.2) mg/dL AST (17-59) U/L Alkaline Phosphatase (38-126) U/L Albumin (3.5-5.0) g/dL 02/17/19 02/17/19 02/17/19 Range/Units 07:24 07:24 11:55 WBC 14.8 H (3.8-10.6) k/uL RBC 4.12 L (4.30-5.90) m/uL Hgb 12.6 L (13.0-17.5) gm/dL Hct 38.1 L (39.0-53.0) % Plt Count 479 H (150-450) k/uL Neutrophils # 13.7 H (1.3-7.7) k/uL Lymphocytes # 0.5 L (1.0-4.8) k/uL Chloride 110 H (98-107) mmol/L Carbon Dioxide 19 L (22-30) mmol/L Glucose 131 H (74-99) mg/dL POC Glucose (mg/dL) 122 H (75-99) mg/dL Calcium 7.6 L (8.4-10.2) mg/dL AST 63 H (17-59) U/L Alkaline Phosphatase 154 H (38-126) U/L Albumin 3.3 L (3.5-5.0) g/dL Assessment and Plan (1) COPD exacerbation Narrative/Plan: Per Pulmonary treatment, pt doing better today. Current Visit: Yes Status: Acute Priority: High Code(s): J44.1 - CHRONIC OBSTRUCTIVE PULMONARY DISEASE W (ACUTE) EXACERBATION SNOMED Code(s): 542767643 (2) Squamous cell lung cancer Narrative/Plan: Pt recently had recurrence of disease. Having radiation to mass on spine encroaching on spinal cord. Sched for biopsy of liver, plavix will be placed on hold. New procedure date and time will be sched Current Visit: Yes Status: Chronic Priority: High Code(s): C34.90 - MALIGNANT NEOPLASM OF UNSP PART OF UNSP BRONCHUS OR LUNG SNOMED Code(s): 711887037 Plan: F/U with Dr. Angelica alejandro, appt in [place] paperwork
--- NOTE | 2019-02-17 16:05 | CDI ---
Documentation Clarification Form Date: 02/17/2019 03:51:50 PM From: Brielle Saeed RN CCDS Admit Date: 02/14/2019 07:44:00 PM Patient Name: Zhou Alvarado Visit Number: [id number] Discharge Date: ATTENTION: The Clinical Documentation Specialists (CDI) and [facility] Coding Staff appreciate your assistance in clarifying documentation. Please respond to the clarification below the line at the bottom and electronically sign. The CDI & [facility] Coding staff will review the response and follow-up if needed. Please note: Queries are made part of the Legal Health Record. If you have any questions, please contact the author of this message via ITS. Dr. Nunez Sheet The diagnosis possible pneumonia was documented the H & P and in 02/[address] Espinosa but is not noted in subsequent documentation. History/Risk Factors: 68 [id number] presents to the ED for increasing shortness of breath and wheezing. Medical history Squamous cell carcinoma; Chronic nicotine dependence; admitted with COPD exacerbation. Clinical Indicators: CXR Chronic elevated left diaphragm with left basilar atelectasis unchanged. Mild pulmonary fibrosis H & P Lung exam Respiratory rate increased diminished breath sounds prolonged expiration wheezing, accessory muscles overbooking, not able to speak in full sentences Treatment: 02/16 Ceftriaxone ivpb Q 24 hours : Ventolin; Duoneb; Pulmicort; Solumedrol 40mg iv q 8hrs Please clarify if the Pneumonia was * Present/active this admission * Treated and resolved this admission * Ruled out * Other, please specify * Clinically unable to determine (Last Query Form Revision: October 2018) no pneumonia MTDD
[2019-02-17 16:53] LABS: Glucose,Whole Blood 125 mg/dL (75-99)
--- NOTE | 2019-02-17 17:05 | P.PN ---
Subjective Progress Note Date: 02/17/19 Principal diagnosis: pain, metastatic non-small cell lung cancer Pt was hospitalized over the weekend. He was having difficulty with dyspnea and pain control. He states that his pain is still severe at times in the right hip. He notes the pain can be up to 10/10, but when he is taking his pain medication it can be as low as 3/10. He was able to ambulate with a walker today. Objective - Vital Signs Vital signs: Vital Signs Temp 97.6 F 02/17/19 12:51 Pulse 83 02/17/19 12:51 Resp 17 02/17/19 12:51 BP 174/94 02/17/19 12:51 Pulse Ox 98 02/17/19 12:51 Intake & Output 02/16/19 02/17/19 02/17/19 18:59 06:59 18:59 Intake Total 900 240 Output Total 300 600 Balance 600 -600 240 Intake: Oral 900 240 Output: Urine 300 600 Other: Voiding Method Toilet Toilet Urinal Urinal # Voids 1 0 6 # Bowel Movements 0 - Constitutional General appearance: Present: disheveled - EENT Eyes: Present: EOMI, PERRLA ENT: Present: NA/AT - Neck Neck: Absent: lymphadenopathy - Respiratory Respiratory: right: diminished, left: CTA - Cardiovascular Rhythm: regular - Gastrointestinal General gastrointestinal: Absent: distended, organomegaly - Integumentary Integumentary: Absent: calor, cellulitis - Neurologic Neurologic: Present: CNII-XII intact - Musculoskeletal Musculoskeletal: Present: generalized weakness, right sided weakness (RLE 4/5 strength) - Psychiatric Psychiatric: Present: A&O x's 3, appropriate affect - Labs CBC & Chem 7: 02/17/19 07:24 02/17/19 07:24 Labs: Abnormal Lab Results - Last 24 Hours (Table) 02/16/19 02/16/19 02/17/19 Range/Units 16:56 20:40 07:00 WBC (3.8-10.6) k/uL RBC (4.30-5.90) m/uL Hgb (13.0-17.5) gm/dL Hct (39.0-53.0) % Plt Count (150-450) k/uL Neutrophils # (1.3-7.7) k/uL Lymphocytes # (1.0-4.8) k/uL Chloride (98-107) mmol/L Carbon Dioxide (22-30) mmol/L Glucose (74-99) mg/dL POC Glucose (mg/dL) 120 H 138 H 170 H (75-99) mg/dL Calcium (8.4-10.2) mg/dL AST (17-59) U/L Alkaline Phosphatase (38-126) U/L Albumin (3.5-5.0) g/dL 02/17/19 02/17/19 02/17/19 Range/Units 07:24 07:24 11:55 WBC 14.8 H (3.8-10.6) k/uL RBC 4.12 L (4.30-5.90) m/uL Hgb 12.6 L (13.0-17.5) gm/dL Hct 38.1 L (39.0-53.0) % Plt Count 479 H (150-450) k/uL Neutrophils # 13.7 H (1.3-7.7) k/uL Lymphocytes # 0.5 L (1.0-4.8) k/uL Chloride 110 H (98-107) mmol/L Carbon Dioxide 19 L (22-30) mmol/L Glucose 131 H (74-99) mg/dL POC Glucose (mg/dL) 122 H (75-99) mg/dL Calcium 7.6 L (8.4-10.2) mg/dL AST 63 H (17-59) U/L Alkaline Phosphatase 154 H (38-126) U/L Albumin 3.3 L (3.5-5.0) g/dL 02/17/19 Range/Units 16:49 WBC (3.8-10.6) k/uL RBC (4.30-5.90) m/uL Hgb (13.0-17.5) gm/dL Hct (39.0-53.0) % Plt Count (150-450) k/uL Neutrophils # (1.3-7.7) k/uL Lymphocytes # (1.0-4.8) k/uL Chloride (98-107) mmol/L Carbon Dioxide (22-30) mmol/L Glucose (74-99) mg/dL POC Glucose (mg/dL) 125 H (75-99) mg/dL Calcium (8.4-10.2) mg/dL AST (17-59) U/L Alkaline Phosphatase (38-126) U/L Albumin (3.5-5.0) g/dL - Imaging and Cardiology Chest x-ray: report reviewed, image reviewed Assessment and Plan Plan: 68 year old male with history of a 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 He was recommended to undergo adjuvant chemotherapy then radiotherapy, but ultimately did no treatment. He now presents with widely metastatic disease - highly suspicious for recurrent NSCLC. 1. Right hip pain: Likely related to large L4 lesion which is eccentric to the right with invasion of spinal canal. The patient is currently undergoing palliative radiation to this area - completed 1/5 treatments today. He was supposed to come in last week and did not show up. Continue Dexamethasone. We will continue to treat the patient while in-house. Of note, a bedbug was found in a sheet used by the patient during our outpatient visit last week - no such findings during his current hospital stay. Would recommend increasing current pain regimen. Patient had pain during his treatment today. 2. Metastatic NSCLC: Liver biopsy pending to confirm diagnosis - may be done later this week. Systemic therapy recommendations will depend on this. Time with Patient: Less than 30
[2019-02-17] MEDS ORDERED: ONDANSETRON 4 MG/2 ML VIAL IVP PRN (17:18)
--- NOTE | 2019-02-17 17:39 | P.CNOR ---
History of Present Illness - HPI Consult date: 02/17/19 Consult reason: fracture, low back pain History of present illness: Patient is seen and examined at bedside. He is a very pleasant 68-year-old male with a diagnosis of metastatic lung cancer. His multiple remote lesions at his liver and in his spine. He has been having back pain over the past several months mainly in his low back on the right side. He says he has some tenderness at the low back and his numbness down his right leg and weakness his right leg which has been present over the past few months. He's been having increasing difficulty with ambulating and using his right lower extremity. He says the pain is not specifically changed over the past few months. He does not have any specific incident or trauma. He normally lives alone with his son helping him. He has not driven in the past couple months. He has been receiving radiation treatment particular L4 vertebral body where there is a metastatic lesion. He says that this is the primary area of his pain. He denies pain up higher in his spine. Denies any changes upper extremity is. Denies changes in his bowel bladder function. He has weakness his right lower extremity which is present over the past couple of months. He has not had specific treatment in terms of bracing. Review of Systems As stated per HPI. Denies any change in bowel bladder function. He has weakness of her lower extremity. His difficulty ambulating. He has not used a brace. 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 Distant metastasis with multiple spots in his liver and multiple areas at his thoracic and lumbar spine Last Myocardial Infarction Date:: 1998 History of Any Multi-Drug Resistant Organisms: None Reported Past Surgical History: Back Surgery, Heart Catheterization Past Anesthesia/Blood Transfusion Reactions: No Reported Reaction Past Psychological History: No Psychological Hx Reported Smoking Status: Current some day smoker Past Alcohol Use History: None Reported Additional Past Alcohol Use History / Comment(s): smoking since age 16, currently smoking 3 cigarettes per day. Past Drug Use History: None Reported - Past Family History Mother Family Medical History: No Reported History Father Additional Family Medical History / Comment(s): alcoholism Medications and Allergies Home Medications Medication Instructions Recorded Confirmed Type Atorvastatin [Lipitor] 80 mg PO HS #30 tab 09/22/17 02/14/19 Rx Metoprolol Succinate [Toprol XL] 25 mg PO HS 12/17/17 02/14/19 History Lisinopril [Zestril] 20 mg PO HS 02/10/19 02/14/19 History Clopidogrel [Plavix] 75 mg PO HS 02/14/19 02/14/19 History oxyCODONE-APAP 10-325MG [Percocet 1 tab PO Q6H PRN 02/14/19 02/14/19 History 10-325 mg] Allergies Allergy/AdvReac Type Severity Reaction Status Date / Time No Known Allergies Allergy Verified 02/14/19 17:50 Physical Examination Osteopathic Statement: *. No significant issues noted on an osteopathic structural exam other than those noted in the History and Physical/Consult. - L Spine: dermatomal strength & reflexes bilateral Strength: hip flexion: 3/5 (His right lower extremity he has 0-1 out of 5 dorsiflexion at his great toe and ankle. He has about 3 out of 5 strength with hip flexion and knee extension. His left lower extremity has 5 out of 5 strength. His cast thighs soft nontender. His back has some tenderness to palpation diffusely. There is some skin changes with his radiation. No open wounds lacerations or abrasions. His abdomen soft nontender. His upper extremities have good active and passive range of motion. Neck has good active passive range of motion is nontender.) Results - Labs Labs: Abnormal Lab Results - Last 24 Hours (Table) 02/16/19 02/17/19 02/17/19 Range/Units 20:40 07:00 07:24 WBC (3.8-10.6) k/uL RBC (4.30-5.90) m/uL Hgb (13.0-17.5) gm/dL Hct (39.0-53.0) % Plt Count (150-450) k/uL Neutrophils # (1.3-7.7) k/uL Lymphocytes # (1.0-4.8) k/uL Chloride 110 H (98-107) mmol/L Carbon Dioxide 19 L (22-30) mmol/L Glucose 131 H (74-99) mg/dL POC Glucose (mg/dL) 138 H 170 H (75-99) mg/dL Calcium 7.6 L (8.4-10.2) mg/dL AST 63 H (17-59) U/L Alkaline Phosphatase 154 H (38-126) U/L Albumin 3.3 L (3.5-5.0) g/dL 02/17/19 02/17/19 02/17/19 Range/Units 07:24 11:55 16:49 WBC 14.8 H (3.8-10.6) k/uL RBC 4.12 L (4.30-5.90) m/uL Hgb 12.6 L (13.0-17.5) gm/dL Hct 38.1 L (39.0-53.0) % Plt Count 479 H (150-450) k/uL Neutrophils # 13.7 H (1.3-7.7) k/uL Lymphocytes # 0.5 L (1.0-4.8) k/uL Chloride (98-107) mmol/L Carbon Dioxide (22-30) mmol/L Glucose (74-99) mg/dL POC Glucose (mg/dL) 122 H 125 H (75-99) mg/dL Calcium (8.4-10.2) mg/dL AST (17-59) U/L Alkaline Phosphatase (38-126) U/L Albumin (3.5-5.0) g/dL H & H 02/14/19 02/17/19 Range/Units 16:15 07:24 Hgb 14.4 12.6 L (13.0-17.5) gm/dL Hct 42.0 38.1 L (39.0-53.0) % Coagulation 02/14/19 Range/Units 16:15 INR 1.0 (<1.2) Result Diagrams: 02/17/19 07:24 02/17/19 07:24 - Diagnostic results CT Scan - lumbar: report reviewed, image reviewed (The patient had a CTA and PET scan. I'm able to visualize areas of his lumbar spine where there are numerous lytic lesions particular L4 which seems to be taking of the entirety of the vertebral body. There are also lesions L3 L2 and L1 T12 T11 and T9. There is evidence of compression deformity at L1 with about 30% height loss. There is sclerosis around L1 as well.) Assessment and Plan Assessment: Metastatic lung cancer with multiple lesions at his thoracic and lumbar spine at T9 T11 T12 L1 L2 L3 and L4 Compression fracture L1 likely pathologic Large metastatic lesion L4 with recent radiation Right lower extremity weakness likely due to L4 mass, chronic Plan: The patient has a compression deformity of L1 which appears pathologic. There are multiple lytic lesions within his thoracic and lumbar spine and he is not having particular pain at the L1 vertebral body. He may have had a number of small fractures with various stages of healing at the L1 but he does have weakness at that further brain and can have some benefit with bracing. He has significant lesion at L4 and has had radiation for this and this seems to be the primary source of his pain and symptoms for his back. He can have some benefit with bracing for his lumbar spine and into his thoracic spine. He has not used a brace and would like to order him an LSO brace to be worn when he is out of bed for his comfort. He does not need to use the brace while in bed or drink bathing. I discussed this with him and he is agreeable. Is difficult to see the benefit of surgical intervention given the multiple areas through his spine. He is not having specific pain at the L1 area and I do not think that kyphoplasty at that area would give him significant functional benefit. He like to continue with conservative treatment and bracing for his lumbar spine at this point. The patient does have weakness has right lower extremity likely due to radicular issues stemming from the L4 vertebrae. He could have some benefit with an AFO brace during his mobilization. We do not have plans for surgical intervention at this point and once patient has the brace it is okay for him to continue management on an outpatient basis as he is able and follow-up with our clinic in approximately 3-4 weeks for recheck evaluation and repeat imaging
[2019-02-17] MEDS: FORMOTEROL FUMARATE 20 MCG/2 ML NEBU INHALATION SCH (19:31)
[2019-02-17 20:33] LABS: Glucose,Whole Blood 120 mg/dL (75-99)
[2019-02-17] MEDS: FAMOTIDINE 20 MG TAB PO SCH (20:54)
[2019-02-17] MEDS: METOPROLOL SUCCINATE (ER) 25 MG TAB.ER.24H PO SCH (20:54)
[2019-02-17] MEDS: ATORVASTATIN 80 MG TAB PO SCH (20:54)
[2019-02-17] MEDS: LISINOPRIL 20 MG TAB PO SCH (20:55)
[2019-02-18] MEDS: oxyCODONE-APAP 10-325MG 1 EACH TAB PO PRN ×4 (04:26→22:23)
[2019-02-18] MEDS: FORMOTEROL FUMARATE 20 MCG/2 ML NEBU INHALATION SCH ×2 (07:08→21:01)
[2019-02-18] MEDS: BUDESONIDE 1 MG/2 ML NEBU INHALATION SCH ×2 (07:08→21:01)
[2019-02-18] MEDS: IPRATROPIUM-ALBUTEROL 3 ML NEB INHALATION SCH ×4 (07:08→21:01)
[2019-02-18 07:39] LABS: Glucose,Whole Blood 137 mg/dL (75-99)
[2019-02-18] MEDS: ENOXAPARIN 40 MG/0.4 ML SYRINGE SQ SCH (07:44)
[2019-02-18] MEDS: CALCIUM CARB-VIT D 500MG-200UN 1 EACH TAB PO SCH ×3 (08:14→16:43)
[2019-02-18] MEDS: FAMOTIDINE 20 MG TAB PO SCH ×2 (08:14→21:15)
[2019-02-18] MEDS: methylPREDNISolone SOD SUCCI 40 MG/ML 1 ML VIAL IV SCH ×3 (08:15→23:46)
[2019-02-18] MEDS: INSULIN ASPART (NovoLOG) 100 UNIT/ML VIAL SQ SCH ×5 (08:15→21:57)
[2019-02-18 08:44] LABS: Basophils # (A) 0.1 k/uL (0-0.2); Basophils % (A) 0 %; Eosinophils % (A) 0 %; HCT 42.5 % (39.0-53.0); HGB 13.8 gm/dL (13.0-17.5); Lymphocytes # (A) 0.5 k/uL (1.0-4.8); Lymphocytes % (A) 3 %; MCH 29.9 pg (25.0-35.0); MCHC 32.5 g/dL (31.0-37.0); Mean Platelet Volume 6.9; Monocytes # (A) 0.8 k/uL (0-1.0); Monocytes % (A) 5 %; Neutrophils # (A) 14.1 k/uL (1.3-7.7); Neutrophils % (A) 91 %; Platelet Count 431 k/uL (150-450); RBC 4.62 m/uL (4.30-5.90); WBC 15.6 k/uL (3.8-10.6)
[2019-02-18 08:54] LABS: ALT 32 U/L (4-49); AST 75 U/L (17-59); African American GFR (CKD) >90 (>60 ml/min/1.73 sqM); Albumin 3.6 g/dL (3.5-5.0); Alkaline Phosphatase 161 U/L (38-126); Anion Gap 11 mmol/L; Blood Urea Nitrogen 16 mg/dL (9-20); Calcium 7.9 mg/dL (8.4-10.2); Carbon Dioxide 19 mmol/L (22-30); Chloride 108 mmol/L (98-107); Glucose 125 mg/dL (74-99); Non-African American GFR(CKD) 81 (>60 ml/min/1.73 sqM); Sodium 138 mmol/L (137-145); Total Bilirubin 0.6 mg/dL (0.2-1.3); Total Protein 6.6 g/dL (6.3-8.2)
--- NOTE | 2019-02-18 11:45 | P.PN ---
Subjective Progress Note Date: 02/18/19 Principal diagnosis: metastatic NSCLC, squamous cell Patient a little bit confused today, he denies any nausea, pain, he is not really sure if his breathing is generally he looks more comfortable at least at rest. He states he is not able to expectorate much, not aware of coughing up any blood. Objective - Vital Signs Vital signs: Vital Signs Temp 97.8 F 02/18/19 07:25 Pulse 71 02/18/19 07:25 Resp 18 02/18/19 08:00 BP 177/101 02/18/19 07:25 Pulse Ox 98 02/18/19 07:25 Intake & Output 02/17/19 02/18/19 02/18/19 18:59 06:59 18:59 Intake Total 240 600 Balance 240 600 Intake: Oral 240 600 Other: Voiding Method Toilet Urinal # Voids 6 2 - Constitutional General appearance: Present: cooperative, no acute distress, thin - EENT Eyes: Present: anicteric sclerae, EOMI ENT: Present: hearing grossly normal - Respiratory Respiratory: bilateral: rales (anterior) - Cardiovascular Rhythm: regular - Peripheral edema leg Peripheral Edema: bilateral: None - Gastrointestinal General gastrointestinal: Present: soft - Neurologic Neurologic: Present: CNII-XII intact - Musculoskeletal Musculoskeletal: Present: generalized weakness - Psychiatric Psychiatric: Present: appropriate affect. Absent: intact judgment & insight - Labs CBC & Chem 7: 02/18/19 08:09 02/18/19 08:09 Labs: Abnormal Lab Results - Last 24 Hours (Table) 02/17/19 02/17/19 02/17/19 Range/Units 11:55 16:49 20:23 WBC (3.8-10.6) k/uL Neutrophils # (1.3-7.7) k/uL Lymphocytes # (1.0-4.8) k/uL Chloride (98-107) mmol/L Carbon Dioxide (22-30) mmol/L Glucose (74-99) mg/dL POC Glucose (mg/dL) 122 H 125 H 120 H (75-99) mg/dL Calcium (8.4-10.2) mg/dL AST (17-59) U/L Alkaline Phosphatase (38-126) U/L 02/18/19 02/18/19 02/18/19 Range/Units 07:34 08:09 08:09 WBC 15.6 H (3.8-10.6) k/uL Neutrophils # 14.1 H (1.3-7.7) k/uL Lymphocytes # 0.5 L (1.0-4.8) k/uL Chloride 108 H (98-107) mmol/L Carbon Dioxide 19 L (22-30) mmol/L Glucose 125 H (74-99) mg/dL POC Glucose (mg/dL) 137 H (75-99) mg/dL Calcium 7.9 L (8.4-10.2) mg/dL AST 75 H (17-59) U/L Alkaline Phosphatase 161 H (38-126) U/L Assessment and Plan (1) COPD exacerbation Narrative/Plan: Per Pulmonary treatment, respiratory status continues to improve Current Visit: Yes Status: Acute Priority: High Code(s): J44.1 - CHRONIC OBSTRUCTIVE PULMONARY DISEASE W (ACUTE) EXACERBATION SNOMED Code(s): 343765340 (2) Squamous cell lung cancer Narrative/Plan: Pt recently had recurrence of disease. Having radiation to mass on spine encroaching on spinal cord. Sched for biopsy of liver, plavix will be placed on hold. New procedure date and time sched with f/u-all appt dates and times as well as instructions to hold plavix in [place] Current Visit: Yes Status: Chronic Priority: High Code(s): C34.90 - MALIGNANT NEOPLASM OF UNSP PART OF UNSP BRONCHUS OR LUNG SNOMED Code(s): 549134716 Plan: Will f/u with Rad Onc re: radiation and MRI of the brain on 02/05. No order for repeat imaging at this time F/U with Dr. Angelica kaufman sched, appt in [place] paperwork
[2019-02-18 12:38] LABS: Glucose,Whole Blood 117 mg/dL (75-99)
--- NOTE | 2019-02-18 12:50 | P.PN ---
Subjective Progress Note Date: 02/18/19 Principal diagnosis: Acute exacerbation of chronic obstructive pulmonary disease. The patient is seen today 02/18/2019 in follow-up on the regular medical floor. He is currently resting comfortably in bed. Awake and alert in no acute distress. He denies any worsening shortness of breath, cough or congestion. Still not quite back to his baseline. He is maintaining O2 saturations in the 90s on 3 L/m per nasal cannula. White count 15.6. Hemoglobin 13.8. Creatinine 0.97. He is maintained on DuoNeb inhalations, Pulmicort and Perforomist inhalations, IV Solu-Medrol. Antibiotics in the form of ceftriaxone. Objective - Vital Signs Vital signs: Vital Signs Temp 97.8 F 02/18/19 07:25 Pulse 71 02/18/19 07:25 Resp 18 02/18/19 08:00 BP 177/101 02/18/19 07:25 Pulse Ox 98 02/18/19 07:25 Intake & Output 02/17/19 02/18/19 02/18/19 18:59 06:59 18:59 Intake Total 240 600 Balance 240 600 Intake: Oral 240 600 Other: Voiding Method Toilet Urinal # Voids 6 2 - Exam GENERAL EXAM: Alert, pleasant disheveled 68-year-old male patient, on 3 L of oxygen with a pulse ox of 98% comfortable in no apparent distress. HEAD: Normocephalic/atraumatic. EYES: Normal reaction of pupils, equal size. Conjunctiva pink, sclera white. NOSE: Clear with pink turbinates. THROAT: No erythema or exudates. NECK: No masses, no JVD, no thyroid enlargement, no adenopathy. CHEST: No chest wall deformity. Symmetrical expansion. LUNGS: Equal air entry with diffuse rhonchi, and wheezing CVS: Regular rate and rhythm, normal S1 and S2, no gallops, no murmurs, no rubs ABDOMEN: Soft, nontender. No hepatosplenomegaly, normal bowel sounds, no guarding or rigidity. EXTREMITIES: No clubbing, no edema, no cyanosis, 2+ pulses and upper and lower extremities. MUSCULOSKELETAL: Muscle strength and tone normal. SPINE: No scoliosis or deformity SKIN: No rashes CENTRAL NERVOUS SYSTEM: No focal deficits, tone is normal in all 4 extremities. PSYCHIATRIC: Alert and oriented -3. Appropriate affect. Intact judgment and insight. - Labs CBC & Chem 7: 02/18/19 08:09 02/18/19 08:09 Labs: Abnormal Lab Results - Last 24 Hours (Table) 02/17/19 02/17/19 02/18/19 Range/Units 16:49 20:23 07:34 WBC (3.8-10.6) k/uL Neutrophils # (1.3-7.7) k/uL Lymphocytes # (1.0-4.8) k/uL Chloride (98-107) mmol/L Carbon Dioxide (22-30) mmol/L Glucose (74-99) mg/dL POC Glucose (mg/dL) 125 H 120 H 137 H (75-99) mg/dL Calcium (8.4-10.2) mg/dL AST (17-59) U/L Alkaline Phosphatase (38-126) U/L 02/18/19 02/18/19 02/18/19 Range/Units 08:09 08:09 12:36 WBC 15.6 H (3.8-10.6) k/uL Neutrophils # 14.1 H (1.3-7.7) k/uL Lymphocytes # 0.5 L (1.0-4.8) k/uL Chloride 108 H (98-107) mmol/L Carbon Dioxide 19 L (22-30) mmol/L Glucose 125 H (74-99) mg/dL POC Glucose (mg/dL) 117 H (75-99) mg/dL Calcium 7.9 L (8.4-10.2) mg/dL AST 75 H (17-59) U/L Alkaline Phosphatase 161 H (38-126) U/L Assessment and Plan Assessment: #1. Acute exacerbation of COPD secondary dyspnea #2. 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 #3. 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 Hyperlipidemia #5. Coronary artery disease #6. Hypertension #7. Generalized weakness Plan: The patient was seen and evaluated by Dr. Pham. He is currently stable from the pulmonary standpoint. We'll continue the current treatment plan. The p atient does have metastatic non-small cell lung cancer. Liver biopsy pending to confirm diagnosis of recurrence. Medical and radiation oncology her on the case as well as orthopedics. I, the cosigning physician, performed a history & physical examination of the patient. Lungs sounds with few scattered rhonchi, bilateral end expiratory wheeze, diminishedr. Maintaining good O2 saturations in the 90s on 3 L/m per nasal cannula. I discussed the assessment and plan of care with my nurse practitioner, Maria Elena Iglesias. I attest to the above note as dictated by her.
[2019-02-18 17:09] LABS: Glucose,Whole Blood 114 mg/dL (75-99)
--- NOTE | 2019-02-18 21:07 | P.PN ---
Subjective this is a pleasant 68 years old male with past medical history of small cell lung cancer with metastasis to the thoracic spine and pathological fracture of L1, history of stroke and left eye blindness. Presents with acute COPD exacerbation and his been evaluated by a rug cleaning supervisor. Patient is controlled currently on steroids and IV hydration. also he had a CT angiogram of the thorax showing obstruction of the left lower bronchus with atelectasis and left pleural effusion but no pulmonary embolism. Patient is aware of his diagnosis of cancer, patient is aware of his other medical problem, is not on home oxygen. He states that his breathing is improving by 30%, with little cough and occasional white phlegm but no chest pain. His back pain is controlled. He has regular bowel movements. And no other complaints.vital signs stable and he is saturating 98% on 2 L and sugar is controlled. radiation oncologist been consulted and is pending. restart his home lisinopril for blood pressure on the high side. Discussed with the staff 02/18/2019 pt breathing is improving , and he is close to his baseline, minimal exertional dyspnea as per pt , pulmonary f/u is appreciated and pt is stable from their view pt liver Biopsy could not be done today as he was taking plavis, it is reschedule in his hospital on this coming tuesday 02/28 and pt is aware and he agree pt declined radiotherapy to his spine today, orthopedic team recommended brace which is pending to be delivered to the pt prior to discharge for his pathologic fracture i had extensive discussion with pt for rehab referral upon discharge he declined and wants to be around family at holiday season Objective - Vital Signs Vital signs: Vital Signs Temp 97.8 F 02/18/19 13:58 Pulse 68 02/18/19 13:58 Resp 18 02/18/19 15:57 BP 169/96 02/18/19 13:58 Pulse Ox 95 02/18/19 13:58 Intake & Output 02/18/19 02/18/19 02/19/19 06:59 18:59 06:59 Intake Total 600 800 Balance 600 800 Intake: Oral 600 800 Other: # Voids 2 3 - Exam GENERAL: The patient is alert and oriented x3, not in any acute distress. Well developed, well nourished. HEENT: Pupils are round and equally reacting to light. EOMI. No scleral icterus. No conjunctival pallor. Normocephalic, atraumatic. No pharyngeal erythema. No thyromegaly. CARDIOVASCULAR: S1 and S2 present. No murmurs, rubs, or gallops. -PULMONARY: Chest is clear to auscultation, scattered wheezing with prolonged expiration ABDOMEN: Soft, nontender, nondistended, normoactive bowel sounds. No palpable organomegaly. MUSCULOSKELETAL: No joint swelling or deformity. EXTREMITIES: No cyanosis, clubbing, or pedal edema. NEUROLOGICAL: Gross neurological examination did not reveal any focal deficits. SKIN: No rashes. no petechiae. - Labs CBC & Chem 7: 02/18/19 08:09 02/18/19 08:09 Labs: Abnormal Lab Results - Last 24 Hours (Table) 02/18/19 02/18/19 02/18/19 Range/Units 07:34 08:09 08:09 WBC 15.6 H (3.8-10.6) k/uL Neutrophils # 14.1 H (1.3-7.7) k/uL Lymphocytes # 0.5 L (1.0-4.8) k/uL Chloride 108 H (98-107) mmol/L Carbon Dioxide 19 L (22-30) mmol/L Glucose 125 H (74-99) mg/dL POC Glucose (mg/dL) 137 H (75-99) mg/dL Calcium 7.9 L (8.4-10.2) mg/dL AST 75 H (17-59) U/L Alkaline Phosphatase 161 H (38-126) U/L 02/18/19 02/18/19 Range/Units 12:36 17:04 WBC (3.8-10.6) k/uL Neutrophils # (1.3-7.7) k/uL Lymphocytes # (1.0-4.8) k/uL Chloride (98-107) mmol/L Carbon Dioxide (22-30) mmol/L Glucose (74-99) mg/dL POC Glucose (mg/dL) 117 H 114 H (75-99) mg/dL Calcium (8.4-10.2) mg/dL AST (17-59) U/L Alkaline Phosphatase (38-126) U/L Assessment and Plan Assessment: -Acute severe COPD exacerbation with smoker, slow to respond -Left upper lobe lobectomy or squamous cells lung cancer in 2018 -obstruction of the left lower bronchus with atelectasis and left pleural effusion -meticulous cystic lesions to the thoracic spine with pathological fracture of L1, radiation oncologist is been consulted -history ofCoronary artery disease with prior ND -Hyperlipidemia -Essential hypertension -Chronic nicotine dependence patient cigarette smoker Plan: this is a pleasant 68 years old male who presents with COPD and metastatic lesion to the spine. Continue with steroids and encourage hydration. Continue with pain management. Follow-up radiation oncology. Incentive spirometry. We'll see if the patient might benefit from a brace.restart lisinopril and follow blood pressure. At calcium-vitamin D Labs and medication were reviewed.. Continue same treatment. Continue with symptomatic treatment. Resume home medication. Monitor lytes and vitals. DVT and GI prophylaxis. Further recommendations of the clinical course of the patient DVT prophylaxis: Subcutaneous Lovenox GI Prophylaxis: Pepcid PT/OT: Pending Prognosis is guarded
[2019-02-18] MEDS: METOPROLOL SUCCINATE (ER) 25 MG TAB.ER.24H PO SCH (21:15)
[2019-02-18] MEDS: ATORVASTATIN 80 MG TAB PO SCH (21:15)
[2019-02-18] MEDS: LISINOPRIL 20 MG TAB PO SCH (21:15)
[2019-02-18 21:57] LABS: Glucose,Whole Blood 106 mg/dL (75-99)
[2019-02-19] MEDS: IPRATROPIUM-ALBUTEROL 3 ML NEB INHALATION PRN (04:34)
[2019-02-19 07:09] LABS: Glucose,Whole Blood 132 mg/dL (75-99)
[2019-02-19 07:25] LABS: Basophils % (A) 0 %; Eosinophils % (A) 0 %; HGB 14.5 gm/dL (13.0-17.5); Lymphocytes # (A) 0.6 k/uL (1.0-4.8); Lymphocytes % (A) 3 %; MCH 30.3 pg (25.0-35.0); MCHC 33.7 g/dL (31.0-37.0); MCV 89.8 fL (80.0-100.0); Monocytes # (A) 0.6 k/uL (0-1.0); Monocytes % (A) 3 %; Neutrophils # (A) 15.3 k/uL (1.3-7.7); Neutrophils % (A) 93 %; Platelet Count 491 k/uL (150-450); RBC 4.79 m/uL (4.30-5.90); RDW 12.9 % (11.5-15.5); WBC 16.5 k/uL (3.8-10.6)
[2019-02-19] MEDS: BUDESONIDE 1 MG/2 ML NEBU INHALATION SCH ×2 (07:46→19:44)
[2019-02-19] MEDS: FORMOTEROL FUMARATE 20 MCG/2 ML NEBU INHALATION SCH ×2 (07:46→19:44)
[2019-02-19] MEDS: IPRATROPIUM-ALBUTEROL 3 ML NEB INHALATION SCH ×4 (07:46→19:44)
[2019-02-19] MEDS: INSULIN ASPART (NovoLOG) 100 UNIT/ML VIAL SQ SCH ×4 (08:04→22:16)
[2019-02-19] MEDS: methylPREDNISolone SOD SUCCI 40 MG/ML 1 ML VIAL IV SCH ×2 (08:08→22:00)
[2019-02-19] MEDS: CALCIUM CARB-VIT D 500MG-200UN 1 EACH TAB PO SCH ×3 (08:08→17:25)
[2019-02-19] MEDS: FAMOTIDINE 20 MG TAB PO SCH ×2 (08:08→21:57)
[2019-02-19] MEDS: ENOXAPARIN 40 MG/0.4 ML SYRINGE SQ SCH (08:08)
[2019-02-19] MEDS: oxyCODONE-APAP 10-325MG 1 EACH TAB PO PRN ×2 (08:14→18:22)
--- NOTE | 2019-02-19 11:45 | P.PN ---
Subjective Progress Note Date: 02/19/19 Principal diagnosis: Acute exacerbation of chronic obstructive pulmonary disease. The patient is seen today 02/18/2019 in follow-up on the regular medical floor. He is currently resting comfortably in bed. Awake and alert in no acute distress. He denies any worsening shortness of breath, cough or congestion. Still not quite back to his baseline. He is maintaining O2 saturations in the 90s on 3 L/m per nasal cannula. White count 15.6. Hemoglobin 13.8. Creatinine 0.97. He is maintained on DuoNeb inhalations, Pulmicort and Perforomist inhalations, IV Solu-Medrol. Antibiotics in the form of ceftriaxone. the patient is seen today 02/19/2019 in follow-up on the regular medical floor. Currently sitting up at the bedside. Awake and alert in no acute distress. Breathing easier today as compared to yesterday. Maintaining O2 saturations in the 90s on 3 L/m per nasal cannula. white count 16.5. Hemoglobin 14.5. Objective - Vital Signs Vital signs: Vital Signs Temp 98 F 02/19/19 05:00 Pulse 106 H 02/19/19 08:04 Resp 20 02/19/19 05:00 BP 173/107 02/19/19 05:00 Pulse Ox 98 02/19/19 05:00 Intake & Output 02/18/19 02/19/19 02/19/19 18:59 06:59 18:59 Intake Total 800 150 Output Total 200 Balance 800 150 -200 Intake: Intake, IV Titration 50 Amount cefTRIAXone 1 gm In 50 Sodium Chloride 0.9% 50 ml @ 100 mls/hr IVPB Q24H [facility] Rx#:[id number] Oral 800 100 Output: Urine 200 Other: # Voids 3 2 1 - Exam GENERAL EXAM: Alert, pleasant disheveled 68-year-old male patient, on 3 L of oxygen with a pulse ox of 98% comfortable in no apparent distress. HEAD: Normocephalic/atraumatic. EYES: Normal reaction of pupils, equal size. Conjunctiva pink, sclera white. NOSE: Clear with pink turbinates. THROAT: No erythema or exudates. NECK: No masses, no JVD, no thyroid enlargement, no adenopathy. CHEST: No chest wall deformity. Symmetrical expansion. LUNGS: Equal air entry with diffuse rhonchi, and wheezing CVS: Regular rate and rhythm, normal S1 and S2, no gallops, no murmurs, no rubs ABDOMEN: Soft, nontender. No hepatosplenomegaly, normal bowel sounds, no guarding or rigidity. EXTREMITIES: No clubbing, no edema, no cyanosis, 2+ pulses and upper and lower extremities. MUSCULOSKELETAL: Muscle strength and tone normal. SPINE: No scoliosis or deformity SKIN: No rashes CENTRAL NERVOUS SYSTEM: No focal deficits, tone is normal in all 4 extremities. PSYCHIATRIC: Alert and oriented -3. Appropriate affect. Intact judgment and insight. - Labs CBC & Chem 7: 02/19/19 06:47 02/18/19 08:09 Labs: Abnormal Lab Results - Last 24 Hours (Table) 02/18/19 02/18/19 02/18/19 Range/Units 12:36 17:04 21:55 WBC (3.8-10.6) k/uL Plt Count (150-450) k/uL Neutrophils # (1.3-7.7) k/uL Lymphocytes # (1.0-4.8) k/uL POC Glucose (mg/dL) 117 H 114 H 106 H (75-99) mg/dL 02/19/19 02/19/19 Range/Units 06:47 07:01 WBC 16.5 H (3.8-10.6) k/uL Plt Count 491 H (150-450) k/uL Neutrophils # 15.3 H (1.3-7.7) k/uL Lymphocytes # 0.6 L (1.0-4.8) k/uL POC Glucose (mg/dL) 132 H (75-99) mg/dL Assessment and Plan Assessment: #1. Acute exacerbation of COPD secondary dyspnea #2. 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 #3. 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 Hyperlipidemia #5. Coronary artery disease #6. Hypertension #7. Generalized weakness Plan: The patient was seen and evaluated by Dr. Pham. We'll continue the current treatment plan. The patient does have metastatic non-small cell lung cancer. Liver biopsy pending to confirm diagnosis of recurrence. Medical and radiation oncology her on the case as well as orthopedics. I, the cosigning physician, performed a history & physical examination of the patient. Lungs sounds with few scattered rhonchi, bilateral end expiratory wheeze, diminishedr. Maintaining good O2 saturations in the 90s on 3 L/m per nasal cannula. I discussed the assessment and plan of care with my nurse practitioner, Maria Elena Iglesias. I attest to the above note as dictated by her.
[2019-02-19 11:58] LABS: Glucose,Whole Blood 111 mg/dL (75-99)
[2019-02-19 16:57] LABS: Glucose,Whole Blood 113 mg/dL (75-99)
[2019-02-19 20:26] LABS: Glucose,Whole Blood 107 mg/dL (75-99)
[2019-02-19] MEDS: METOPROLOL SUCCINATE (ER) 25 MG TAB.ER.24H PO SCH (21:57)
[2019-02-19] MEDS: ATORVASTATIN 80 MG TAB PO SCH (21:57)
[2019-02-19] MEDS: LISINOPRIL 20 MG TAB PO SCH (21:57)
[2019-02-20 07:26] LABS: Glucose,Whole Blood 118 mg/dL (75-99)
[2019-02-20] MEDS: INSULIN ASPART (NovoLOG) 100 UNIT/ML VIAL SQ SCH ×2 (08:29→12:35)
[2019-02-20] MEDS: FAMOTIDINE 20 MG TAB PO SCH (08:34)
[2019-02-20] MEDS: CALCIUM CARB-VIT D 500MG-200UN 1 EACH TAB PO SCH ×2 (08:34→12:52)
[2019-02-20] MEDS: methylPREDNISolone SOD SUCCI 40 MG/ML 1 ML VIAL IV SCH (08:34)
[2019-02-20] MEDS: ENOXAPARIN 40 MG/0.4 ML SYRINGE SQ SCH (08:34)
[2019-02-20] MEDS: oxyCODONE-APAP 10-325MG 1 EACH TAB PO PRN ×2 (08:38→15:29)
--- NOTE | 2019-02-20 09:20 | CDI ---
Documentation Clarification Form Date: 02/20/2019 08:26:49 AM From: Brielle Saeed RN CCDS Admit Date: 02/14/2019 07:44:00 PM Patient Name: Zhou Alvarado Visit Number: [id number] Discharge Date: ATTENTION: The Clinical Documentation Specialists (CDI) and [facility] Coding Staff appreciate your assistance in clarifying documentation. Please respond to the clarification below the line at the bottom and electronically sign. The CDI & [facility] Coding staff will review the response and follow-up if needed. Please note: Queries are made part of the Legal Health Record. If you have any questions, please contact the author of this message via ITS. Dr. Royal Pham The patient presented with increasing shortness of breath and wheezing. History/Risk Factors: 68-year-old male presents with medical history of COPD; 2018 patient had a thoracoscopic upper lobectomy and mediastinal lymph node dissection. Non-small cell lung cancer. Tobacco use: smoking since age 16; currently smoking 3 cigarettes per day. Clinical Indicators: Vital signs: 02/14 132/85 112 97.7 30 93% ra Lung/Breathing assessment: HP 02/15/2019 Respiratory rate increased, diminished breath sounds prolonged expiration wheezing, accessory muscles overbooking, not able to speak in full sentences Treatment: Breathing tx 02/14 Duoneb/Ipratropium PRN; Albuterol/Ipartropium QID scheduled; 02/17 Performist BID; 02/19 Solu-Medrol q 12 hr; 02/14 119/85 89 18 99% 3L nasal cannula;d 02/15 94% 2L nasal cannula 02/17 98% 3L nasal cannula ; 02/20/2019 2L nasal cannula In your professional opinion, can you please clarify if these findings signify one of the following conditions? * Acute Respiratory Failure * Acute on Chronic Respiratory Failure * Chronic Respiratory Failure * Acute Respiratory Distress * Acute Respiratory Insufficiency * Other Diagnosis, please specify * Unable to determine Specificity: If known, further specify (if known): With hypercapnia? (pCO2 >50 and pH <7.35) With hypoxia? (pO2 <60 mm Hg or SpO2 <91% on room air) (Last Query Form Revision: October 2018) MTDD
[2019-02-20] MEDS: FORMOTEROL FUMARATE 20 MCG/2 ML NEBU INHALATION SCH (09:23)
[2019-02-20] MEDS: BUDESONIDE 1 MG/2 ML NEBU INHALATION SCH (09:23)
[2019-02-20] MEDS: IPRATROPIUM-ALBUTEROL 3 ML NEB INHALATION SCH ×2 (09:23→12:39)
[2019-02-20 09:41] LABS: Basophils # (A) 0.1 k/uL (0-0.2); Basophils % (A) 0 %; Eosinophils % (A) 0 %; HCT 48.1 % (39.0-53.0); HGB 15.7 gm/dL (13.0-17.5); Lymphocytes # (A) 0.6 k/uL (1.0-4.8); Lymphocytes % (A) 3 %; MCH 29.7 pg (25.0-35.0); MCHC 32.8 g/dL (31.0-37.0); MCV 90.8 fL (80.0-100.0); Mean Platelet Volume 7.1; Monocytes # (A) 0.8 k/uL (0-1.0); Monocytes % (A) 4 %; Neutrophils # (A) 16.7 k/uL (1.3-7.7); Neutrophils % (A) 91 %; Platelet Count 457 k/uL (150-450); RDW 12.8 % (11.5-15.5); WBC 18.3 k/uL (3.8-10.6)
--- NOTE | 2019-02-20 10:59 | P.PN ---
Subjective Progress Note Date: 02/20/19 Principal diagnosis: Acute exacerbation of chronic obstructive pulmonary disease. The patient is seen today 02/18/2019 in follow-up on the regular medical floor. He is currently resting comfortably in bed. Awake and alert in no acute distress. He denies any worsening shortness of breath, cough or congestion. Still not quite back to his baseline. He is maintaining O2 saturations in the 90s on 3 L/m per nasal cannula. White count 15.6. Hemoglobin 13.8. Creatinine 0.97. He is maintained on DuoNeb inhalations, Pulmicort and Perforomist inhalations, IV Solu-Medrol. Antibiotics in the form of ceftriaxone. the patient is seen today 02/19/2019 in follow-up on the regular medical floor. Currently sitting up at the bedside. Awake and alert in no acute distress. Breathing easier today as compared to yesterday. Maintaining O2 saturations in the 90s on 3 L/m per nasal cannula. white count 16.5. Hemoglobin 14.5. The patient is seen today 02/20/2019 in follow-up on the regular medical floor. He is currently sitting up in bed. Awake and alert in no acute distress. Maintaining O2 saturations in the high 90s on 2 L/m per nasal cannula. He is afebrile. Hemodynamically stable. White count 18.3. Hemoglobin 15.7. Platelet count 457,000. He remains on bronchodilators, Pulmicort and Perforomist inhalations, IV Solu-Medrol, antibiotics in the form of ceftriaxone. He has been refusing some of his breathing treatments. Objective - Vital Signs Vital signs: Vital Signs Temp 97.8 F 02/20/19 05:00 Pulse 74 02/20/19 05:00 Resp 20 02/20/19 05:00 BP 147/98 02/20/19 05:00 Pulse Ox 99 02/20/19 05:00 Intake & Output 02/19/19 02/20/19 02/20/19 18:59 06:59 18:59 Intake Total 250 Output Total 350 200 Balance -350 50 Intake: Intake, IV Titration 50 Amount cefTRIAXone 1 gm In 50 Sodium Chloride 0.9% 50 ml @ 100 mls/hr IVPB Q24H [facility] Rx#:[id number] Oral 200 Output: Urine 350 200 Other: Voiding Method Toilet Urinal # Voids 1 2 # Bowel Movements 0 - Exam GENERAL EXAM: Alert, pleasant disheveled 68-year-old male patient, on 2 L of o xygen with a pulse ox of 99% comfortable in no apparent distress. HEAD: Normocephalic/atraumatic. EYES: Normal reaction of pupils, equal size. Conjunctiva pink, sclera white. NOSE: Clear with pink turbinates. THROAT: No erythema or exudates. NECK: No masses, no JVD, no thyroid enlargement, no adenopathy. CHEST: No chest wall deformity. Symmetrical expansion. LUNGS: Equal air entry with few scattered rhonchi, and wheezing CVS: Regular rate and rhythm, normal S1 and S2, no gallops, no murmurs, no rubs ABDOMEN: Soft, nontender. No hepatosplenomegaly, normal bowel sounds, no guarding or rigidity. EXTREMITIES: No clubbing, no edema, no cyanosis, 2+ pulses and upper and lower extremities. MUSCULOSKELETAL: Muscle strength and tone normal. SPINE: No scoliosis or deformity SKIN: No rashes CENTRAL NERVOUS SYSTEM: No focal deficits, tone is normal in all 4 extremities. PSYCHIATRIC: Alert and oriented -3. Appropriate affect. Intact judgment and insight. - Labs CBC & Chem 7: 02/20/19 09:07 02/18/19 08:09 Labs: Abnormal Lab Results - Last 24 Hours (Table) 02/19/19 02/19/19 02/19/19 Range/Units 11:56 16:47 20:16 WBC (3.8-10.6) k/uL Plt Count (150-450) k/uL Neutrophils # (1.3-7.7) k/uL Lymphocytes # (1.0-4.8) k/uL POC Glucose (mg/dL) 111 H 113 H 107 H (75-99) mg/dL 02/20/19 02/20/19 Range/Units 07:04 09:07 WBC 18.3 H (3.8-10.6) k/uL Plt Count 457 H (150-450) k/uL Neutrophils # 16.7 H (1.3-7.7) k/uL Lymphocytes # 0.6 L (1.0-4.8) k/uL POC Glucose (mg/dL) 118 H (75-99) mg/dL Assessment and Plan Assessment: #1. Acute hypoxemic respiratory failure secondary to an acute exacerbation of COPD secondary dyspnea #2. 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 #3. Chronic tobacco dependence #4. Hyperlipidemia #5. Coronary artery disease #6. Hypertension #7. Generalized weakness #8. 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 Pham. We will convert him to oral prednisone. Add Symbicort. Titrate down the FiO2 as tolerated. He is again educated regarding the importance of complete smoking cessation. Home once cleared medically The patient does have metastatic non-small cell lung cancer. Liver biopsy pending 02/28/2018 to confirm diagnosis of recurrence. Medical and radiation oncology her on the case. I, the cosigning physician, performed a history & physical examination of the patient. Lungs sounds with few scattered rhonchi, bilateral end expiratory wheeze, diminishedr. Maintaining good O2 saturations in the 90s on 2 L/m per nasal cannula. I discussed the assessment and plan of care with my nurse practitioner, Maria Elena Iglesias. I attest to the above note as dictated by her.
[2019-02-20 11:52] LABS: Glucose,Whole Blood 107 mg/dL (75-99)
[2019-02-20 11:58] VITALS: BMI 20.5
[2019-02-20 13:38] VITALS: BP 151/98; RESP 16; TEMP 98
[2019-02-20 14:28] VITALS: PULSE 69
[2019-02-20] MEDS ORDERED: CLOPIDOGREL 75 MG TAB PO SCH (15:00)
--- NOTE | 2019-02-20 15:42 | P.PN ---
Progress Note - Text Progress Note Date: 02/20/19 Patient had acute on chronic hypoxic respiratory failure secondary to underlying COPD exacerbation, and non-small cell lung cancer. This is for documentation purposes.
--- NOTE | 2019-02-20 15:49 | P.PN ---
Subjective Progress Note Date: 02/20/19 Principal diagnosis: metastatic NSCLC, squamous cell Patient standing up at the bedside with a walker with Physical Therapy standing by, he is a little short of breath, he had no other complaints at the moment Objective - Vital Signs Vital signs: Vital Signs Temp 98.0 F 02/20/19 12:50 Pulse 69 02/20/19 13:46 Resp 16 02/20/19 12:50 BP 151/98 02/20/19 12:50 Pulse Ox 98 02/20/19 13:46 Intake & Output 02/19/19 02/20/19 02/20/19 18:59 06:59 18:59 Intake Total 250 Output Total 350 200 Balance -350 50 Weight 63.049 kg Intake: Intake, IV Titration 50 Amount cefTRIAXone 1 gm In 50 Sodium Chloride 0.9% 50 ml @ 100 mls/hr IVPB Q24H [facility] Rx#:[id number] Oral 200 Output: Urine 350 200 Other: Voiding Method Toilet Toilet Urinal Urinal # Voids 1 2 2 # Bowel Movements 0 - Exam Well-developed, thin, mild to moderate degree of muscle wasting noted, gene ralized weakness requiring walker, patient also has a back brace for metastatic disease to the spine causing pain, patient is able to speak without too much difficulty in breathing - Labs CBC & Chem 7: 02/20/19 09:07 02/18/19 08:09 Labs: Abnormal Lab Results - Last 24 Hours (Table) 02/19/19 02/19/19 02/20/19 Range/Units 16:47 20:16 07:04 WBC (3.8-10.6) k/uL Plt Count (150-450) k/uL Neutrophils # (1.3-7.7) k/uL Lymphocytes # (1.0-4.8) k/uL POC Glucose (mg/dL) 113 H 107 H 118 H (75-99) mg/dL 02/20/19 02/20/19 Range/Units 09:07 11:35 WBC 18.3 H (3.8-10.6) k/uL Plt Count 457 H (150-450) k/uL Neutrophils # 16.7 H (1.3-7.7) k/uL Lymphocytes # 0.6 L (1.0-4.8) k/uL POC Glucose (mg/dL) 107 H (75-99) mg/dL Assessment and Plan (1) COPD exacerbation Narrative/Plan: Per Pulmonary treatment, respiratory status stable Current Visit: Yes Status: Acute Priority: High Code(s): J44.1 - CHRONIC OBSTRUCTIVE PULMONARY DISEASE W (ACUTE) EXACERBATION SNOMED Code(s): 292016984 (2) Squamous cell lung cancer Narrative/Plan: Pt recently had recurrence of disease. Having radiation to mass on spine encroaching on spinal cord. Sched for biopsy of liver, plavix will be placed on hold after Sunday's dose- procedure date changed to 02/28/18. Current Visit: Yes Status: Chronic Priority: High Code(s): C34.90 - MALIGNANT NEOPLASM OF UNSP PART OF UNSP BRONCHUS OR LUNG SNOMED Code(s): 662012451 Plan: Pt seeing Rad Onc while inpatient F/U with Dr. Angelica alejandro, appt in [place] paperwork
[2019-02-20] MEDS ORDERED: SYMBICORT 160-4.5 MCG INHALER INHALATION SCH (20:00)
--- NOTE | 2019-02-20 23:25 | P.DS ---
Providers Date of admission: 02/14/19 19:44 Attending physician: Jeffery Espinosa Consults: 02/14/19 19:42 Consult Physician Routine Consulting Provider: Antonino Dominguez Consult Reason/Comments: known Do you want consulting provider notified?: Yes 02/14/19 19:48 Consult Physician Routine Consulting Provider: Royal Pham Consult Reason/Comments: known Do you want consulting provider notified?: Yes 02/15/19 16:56 Consult Physician Routine Consulting Provider: Lui Feliciano Consult Reason/Comments: metastatic cancer,palliative radiation Do you want consulting provider notified?: Yes 02/17/19 15:48 Consult Physician Routine Consulting Provider: John Scales Consult Reason/Comments: fractured back Do you want consulting provider notified?: Yes Primary care physician: Efrain [facility] [employer] [facility] Course: diagnoses: -Acute severe COPD exacerbation with smoker, improved significantly -acute hypoxic respiratory failure -Left upper lobe lobectomy for squamous cells lung cancer in 2018 -obstruction of the left lower bronchus with atelectasis and left pleural effusion -metastatic lesions to the thoracic spine with pathological fracture of L1, status post radiotherapy to the spine -Memory impairment -history of Coronary artery disease with prior [place] -Hyperlipidemia -Essential hypertension -Chronic nicotine dependence patient cigarette smoker hospital course: this is a pleasant 68 years old male with past medical history of squamous cell lung cancer with metastasis to the thoracic spine and pathological fracture of L1, history of stroke and left eye blindness. Presents with acute COPD exacerbation and his been evaluated by a service liaison representative. patient has been treated with steroids, antibiotics and bronchodilators and oxygen. Patient showed interval improvement and on the day of discharge is present in his back close to normal and with minimal exertional dyspnea and improved coughing. Patient can be discharged on short course of antibiotics and Taper steroids. also he had a CT angiogram of the thorax showing obstruction of the left lower bronchus with atelectasis and left pleural effusion but no pulmonary embolism. Patient is aware of his diagnosis of cancer, patient is aware of his other medical problem, is not on home oxygen. Oncologist evaluated the patient and recommended liver biopsy as part of the treatment plan. Patient started receiving radiation therapy to his metastatic lesions to the spine and tolerated that well. Patient received 2/5 rounds of therapy. Spine orthopedic recommended a brace for the patient which is ordered. patient on the day of discharge is improved significantly in his back close to his baseline. He denies chest pain or dyspnea. No abdominal pain. No nausea vomiting. No change in urine or bowel habits. No fever She was cleared for discharge by all consultants including service liaison representative and oncologist Problems and management plan were discussed with the patient and he verbalized understanding and acceptance Patient was found stable and can be discharged home however he needs follow-up as an outpatient. Patient was instructed to follow up with PCP within one week and patient agrees on several occasions pt could not remember his illness , eg yesterday he could not remember he has lung cancer " there is something in my lung" and he needed several attempts to remind him with discharge instruction , so for safe discha rge i contact his sister on his request [phone] and discussed the case with her and his problems , pt lives with his son and he has 24 hr care between his son and sister. Ms. siegel was instructed about the need for f/u with his pcp, service liaison representative , oncologist and radiation oncologist and she kindly took note of them and agree with f/u recommendation , she is aware about the need for radiation therapy to his spine and that he got only one dose of five. also instructed for his brace use. she is made aware that he has appointment for liver Biopsy in [facility] next Sunday02/28/19 and that he needs to hols plavix starting this sunday ( upon my discussion with oncology team and their recommendation) pt does not need home oxygen upon discharge Gen: patient is a AAOx3, no distress CVS: S1-S2, RRR, no murmur -Lungs: B/L CTA, with mild bilateral scattered wheezing Abdomen: soft, no distention, no tenderness, positive bowel sounds Extremity: no leg edema or induration -musculoskeletal: Mild thoracic spine tenderness Time spent more than 35 minutes Patient Condition at Discharge: Fair Plan - Discharge Summary Discharge Rx Participant: Yes New Discharge Prescriptions: New Calcium Carb-Vit D 500Mg-200Un [Oscal 500+D] 1 each PO TID-W/MEALS #90 tab Famotidine [Pepcid] 20 mg PO BID #60 tab predniSONE 10 mg PO DIRECTED #30 tab Albuterol Inhaler [Ventolin Hfa Inhaler] 1 - 2 puff INHALATION RT-Q6H PRN #1 inhaler PRN Reason: Shortness Of Breath Or Wheezing Clopidogrel [Plavix] 75 mg PO DAILY #1 tab Continue Atorvastatin [Lipitor] 80 mg PO HS #30 tab Metoprolol Succinate [Toprol XL] 25 mg PO HS Lisinopril [Zestril] 20 mg PO HS oxyCODONE-APAP 10-325MG [Percocet 10-325 mg] 1 tab PO Q6H PRN PRN Reason: Pain Discontinued Clopidogrel [Plavix] 75 mg PO HS Discharge Medication List Atorvastatin [Lipitor] 80 mg PO HS #30 tab 09/22/17 [Rx] Metoprolol Succinate [Toprol XL] 25 mg PO HS 12/17/17 [History] Lisinopril [Zestril] 20 mg PO HS 02/10/19 [History] oxyCODONE-APAP 10-325MG [Percocet 10-325 mg] 1 tab PO Q6H PRN 02/14/19 [History] Albuterol Inhaler [Ventolin Hfa Inhaler] 1 - 2 puff INHALATION RT-Q6H PRN #1 inhaler 02/20/19 [Rx] Calcium Carb-Vit D 500Mg-200Un [Oscal 500+D] 1 each PO TID-W/MEALS #90 tab 02/20/19 [Rx] Clopidogrel [Plavix] 75 mg PO DAILY #1 tab 02/20/19 [Rx] Famotidine [Pepcid] 20 mg PO BID #60 tab 02/20/19 [Rx] predniSONE 10 mg PO DIRECTED #30 tab 02/20/19 [Rx] Follow up Appointment(s)/Referral(s): Royal Pham MD [STAFF PHYSICIAN] - 10 Days (please call office to set up appt.) John Scales DO [Doctor of Osteopathic Medicine] - 4 Weeks (Please call office to call the office to set up a follow up appt. ) Efrain Vazquez DO [Primary Care Provider] - 1-2 days (Please call office to set up follow up appt.) Manoj Souza [NON-STAFF] - As Needed (LSO back brace) Antonino Dominguez MD [STAFF PHYSICIAN] - 03/03/19 12:30 pm Patient Instructions/Handouts: Lung Cancer ([place]), COPD (Chronic Obstructive Pulmonary Disease) ([place]), Hypoxia (ED) Activity/Diet/Wound Care/Special Instructions: MUST HOLD PLAVIX FROM SUNDAY!!!!!!!!! LIVER BIOPSY IS SCHEDULED FOR SundayFebruary AT 9:30 AM HERE AT [facility] keep holding your plavix for your liver biopsy and resume it after the liver biopsy as per your doctor, please talk to your doctor when to resume plavix Low carbohydrate diet activity is limited till you see your doctor Discharge Disposition: HOME SELF-CARE
[2019-02-21] MEDS ORDERED: predniSONE 20 MG TAB PO SCH (09:00)
== END 2019-02-20 15:48 | disposition home or self-care (01) | DRG 190 ==
LOC: EC 15:39 → 6NMEDSUR 19:44
PROVIDERS: ADMIT Hospitalist; ATTEND Hospitalist
DX: J44.1 Chronic obstructive pulmonary disease with (acute) exacerbation (principal); J96.21 Acute and chronic respiratory failure with hypoxia; C77.1 Secondary and unspecified malignant neoplasm of intrathoracic lymph nodes; C78.7 Secondary malignant neoplasm of liver and intrahepatic bile duct; C34.12 Malignant neoplasm of upper lobe, left bronchus or lung; C79.51 Secondary malignant neoplasm of bone; M84.58XA Pathological fracture in neoplastic disease, other specified site, initial encounter for fracture; J98.11 Atelectasis; J90 Pleural effusion, not elsewhere classified; E78.5 Hyperlipidemia, unspecified; F41.9 Anxiety disorder, unspecified; I69.912 Visuospatial deficit and spatial neglect following unspecified cerebrovascular disease; I25.10 Atherosclerotic heart disease of native coronary artery without angina pectoris; I10 Essential (primary) hypertension; I25.2 Old myocardial infarction; R40.2362 Coma scale, best motor response, obeys commands, at arrival to emergency department; R40.2142 Coma scale, eyes open, spontaneous, at arrival to emergency department; R40.2252 Coma scale, best verbal response, oriented, at arrival to emergency department; H54.62 Unqualified visual loss, left eye, normal vision right eye; F17.210 Nicotine dependence, cigarettes, uncomplicated; Z71.6 Tobacco abuse counseling; Z79.02 Long term (current) use of antithrombotics/antiplatelets; Z79.899 Other long term (current) drug therapy; Z92.3 Personal history of irradiation; Z81.1 Family history of alcohol abuse and dependence
CPT/HCPCS: 36415; 71046; 71275; 80048; 80053; 83735; 83880; 84484; 85025; 85610; 85730; 93005; 94640; 94760; 96361; 96374; 99285

== ENCOUNTER → 2019-02-28 | Day surgery (SDC) | payer MEDICARE ==
--- NOTE | 2019-02-15 13:27 | P.CNPUL ---
History of Present Illness Consult date: 02/15/19 Reason for consult: dyspnea, COPD History of present illness: This is a 68-year-old male patient with known history of COPD with an FEV1 of 72% of predicted. The patient also has squamous cell carcinoma and the patient was found to have a left upper lobe mass which was a squamous cell carcinoma. He underwent a left upper lobe resection in the postoperative staging showed T2 N2 disease and surgery was completed in November 2017. His current disease is metastatic. Based on the most recent PET scan that was done on 02/09/2019, the patient has metastatic disease with marked osseous metastases and hepatic metastases. The patient has diffuse metastases to the skeletal system involving the C1 spine and lower cervical spine in addition to a destructive lytic lesion at the level of T1 and left scapular lesion near the glenoid structures and the patient has multiple hypermetabolic destructive lesions involving the skeletal system and throughout the thoracolumbar spine and ribs. The patient also has multiple lesions in the left hepatic lobe. Note that the patient has also history of CVA has near complete loss of vision in the left eye and has hypertension and coronary artery disease with previous myocardial infarction back in 1998. The patient came yesterday to the ED because of worsening shortness of breath for 3 hours prior to his hospital admission. No reported chest pain. No reported fever. He had some increased cough and congestion along with a worsening shortness of breath. A CT angiogram was done on 02/14/2019 showed no evidence of pulmonary embolism. Mediastinal and bronchial adenopathy. Encasement of the left pulmonary artery with luminal narrowing up to 50%. No evidence of pulmonary embolism. Obstruction of the left lower lobe bronchus with extensive consolidation and atelectasis left lung base. Left pl eural effusion. Chest unchanged compared to recent exam. Hepatic metastatic disease unchanged. Evidence of osseous metastatic disease in the thoracic spine with pathologic compression fracture of L1 and areas of osteolysis. This is significantly progressed compared to recent CT scan. The patient was initiated on radiation therapy for pain control to his lower spine by Dr. Lui Feliciano Review of Systems Constitutional: Reports weight loss Eyes: left decreased vision, denies blurred vision, denies bulging eye Ears: deny: decreased hearing, ear discharge, earache, tinnitus Ears, nose, mouth and throat: Reports as per HPI Breasts: absent: as per HPI, gynecomastia Cardiovascular: Reports decreased exercise tolerance, Reports dyspnea on exertion Respiratory: Reports cough, Reports dyspnea Gastrointestinal: Denies abdominal pain, Denies diarrhea, Denies nausea, Denies vomiting Genitourinary: Reports as per HPI Musculoskeletal: Reports as per HPI (She has skeletal metastases and has lower back pain and rib cage pain and pain all over his body) Musculoskeletal: absent: ankle pain, ankle stiffness, ankle swelling Integumentary: Reports as per HPI Neurological: Reports as per HPI, Reports balance difficulties, Reports gait dysfunction, Reports weakness, Reports visual changes Psychiatric: Reports as per HPI Endocrine: Reports as per HPI, Reports fatigue Hematologic/Lymphatic: Reports as per HPI Allergic/Immunologic: Reports as per HPI Past Medical History Past Medical History: Cancer, CVA/TIA, Hyperlipidemia, Hypertension, Myocardial Infarction (PA) Additional Past Medical History / Comment(s): 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, coronary artery disease with previous PA in 1998, history of CVA with some residual visual deficits involving the left eye occurring in August 2017, hypertension, hyperlipidemia Last Myocardial Infarction Date:: 1998 History of Any Multi-Drug Resistant Organisms: None Reported Past Surgical History: Back Surgery, Heart Catheterization Past Anesthesia/Blood Transfusion Reactions: No Reported Reaction Past Psychological History: No Psychological Hx Reported Smoking Status: Current some day smoker Past Alcohol Use History: None Reported Additional Past Alcohol Use History / Comment(s): smoking for approx. 30 years, she has not seen him smoking lately so she does not think he is Past Drug Use History: None Reported - Past Family History Mother Family Medical History: No Reported History Father Additional Family Medical History / Comment(s): alcoholism Medications and Allergies Home Medications Medication Instructions Recorded Confirmed Type Atorvastatin [Lipitor] 80 mg PO HS #30 tab 09/22/17 02/14/19 Rx Metoprolol Succinate [Toprol XL] 25 mg PO HS 12/17/17 02/14/19 History Lisinopril [Zestril] 20 mg PO HS 02/10/19 02/14/19 History Clopidogrel [Plavix] 75 mg PO HS 02/14/19 02/14/19 History oxyCODONE-APAP 10-325MG [Percocet 1 tab PO Q6H PRN 02/14/19 02/14/19 History 10-325 mg] Allergies Allergy/AdvReac Type Severity Reaction Status Date / Time No Known Allergies Allergy Verified 02/14/19 17:50 Physical Exam Gen. appearance, comfortable, not in acute distress Head exam was generally normal. There was no scleral icterus or corneal arcus. Mucous membranes were moist. Neck was supple and without jugular venous distension, thyromegaly, or carotid bruits. Carotids were easily palpable bilaterally. There was no adenopathy. Lungs sounds are diminished bilaterally more so on the left compared to the right and there is diffuse expiratory wheezes heard throughout the lung hinkle bilaterally along with rhonchi and prolongation of the exhalation phase of breathing Cardiac exam revealed the PMI to be normally situated and sized. The rhythm was regular and no extrasystoles were noted during several minutes of auscultation. The first and second heart sounds were normal and physiologic splitting of the second heart sound was noted. There were no murmurs, rubs, clicks, or gallops. Abdominal exam revealed normal bowel sounds. The abdomen was soft, non-tender, a nd without masses, organomegaly, or appreciable enlargement of the abdominal aorta. Extremities revealed some muscle atrophy and there is no cyanosis or clubbing. There is motor weakness in lower extremity is bilaterally. Neurologically is awake and alert and there is no focal neurological deficits. Examination of the skin revealed no evidence of significant rashes, suspicious appearing nevi or other concerning lesions. Results - Diagnostic Findings Chest x-ray: image reviewed Assessment and Plan Plan: 1 acute COPD exacerbation with secondary shortness of breath. 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 The patient's most recent CAT scan of the chest was done yesterday showed no evidence of any pulmonary embolism. There is mediastinal and peribronchial adenopathy and there is encasement of the left pulmonary artery with 50% narrowing in addition to obstruction of the left lower lobe bronchus with some atelectatic changes in the left lung base and a very small left-sided pleural effusion. 3 extensive skeletal metastases involving the ribs and the thoracic and the lumbar and cervical spine 4 hepatic metastases 5 acute hypoxic respiratory failure secondary to above 6 back pain secondary to above and the patient is receiving radiation therapy for now 7 history of CVA 8 history of coronary artery disease 9 diffuse skeletal pain secondary to above. Plan We'll put the patient on DuoNeb nebulized treatments around the clock. We'll put the patient IV Solu Medrol 60 mg every 6 hours. May consider bronchoscopy and airway inspection to visualize the left lower lobe as there is some mass effect causing left lower lobe bronchus narrowing. There is some limited atelectatic changes and left lung base along with small left-sided pleural effusion which is not and level for thoracentesis at this point in time. No evidence of any pulmonary embolism. Continue Plavix. Continue bronchodilators. Continue systemic steroids. Prognosis poor baseline above-mentioned comorbidities. Continue radiation therapy for palliative reasons and pain control to his spine.
[2019-02-28 10:06] VITALS: TEMP 97.5
[2019-02-28 10:26] LABS: Mean Platelet Volume 7.1; Platelet Count 240 k/uL (150-450)
[2019-02-28 11:21] VITALS: RESP 16
--- NOTE | 2019-02-28 11:40 | US ---
EXAMINATION TYPE: US biopsy liver DATE OF EXAM: 02/28/2019 COMPARISON: 02/08/2019 HISTORY: Multiple liver masses The procedure was explained to the patient. The risks, complications, benefits, and alternatives wer e discussed and any questions were answered. Informed consent was obtained. Patient was placed supi ne on the ultrasound table and prepped and draped in the usual sterile fashion. All elements of maximal barrier and sterile technique utilized. Utilizing ultrasound guidance, an 18 gauge core biopsy needle access into the right lobe of the live r was achieved and a three 18 gauge core samples obtained. The patient was stable throughout the pro cedure and remained stable upon discharge. IMPRESSION: 1. Successful 18 gauge core biopsy of the liver.
[2019-02-28 13:28] VITALS: BP 116/67; PULSE 66
== END ==
LOC: RADPROMAIN 09:29
PROVIDERS: ATTEND Internal Medicine Hematology & Oncology
DX: C78.7 Secondary malignant neoplasm of liver and intrahepatic bile duct (principal); C79.51 Secondary malignant neoplasm of bone; C34.90 Malignant neoplasm of unspecified part of unspecified bronchus or lung; C80.1 Malignant (primary) neoplasm, unspecified; J44.1 Chronic obstructive pulmonary disease with (acute) exacerbation; R59.0 Localized enlarged lymph nodes; J96.01 Acute respiratory failure with hypoxia; I10 Essential (primary) hypertension; I25.10 Atherosclerotic heart disease of native coronary artery without angina pectoris; I25.2 Old myocardial infarction; E78.5 Hyperlipidemia, unspecified; F17.200 Nicotine dependence, unspecified, uncomplicated; Z86.73 Personal history of transient ischemic attack (TIA), and cerebral infarction without residual deficits; Z79.02 Long term (current) use of antithrombotics/antiplatelets; Z79.899 Other long term (current) drug therapy; Z92.3 Personal history of irradiation; Z90.2 Acquired absence of lung [part of]; Z81.1 Family history of alcohol abuse and dependence
CPT/HCPCS: 36415; 47000; 76942; 85049; 85610; 88307; 88341; 88342